=== PATIENT | male | born 1945 | race African-American/Black ===

== ENCOUNTER 2022-07-22 10:53 | Inpatient (IN) | payer MEDICAID, SELFPAY ==
[2022-07-22] VITALS (33 sets, daily range): BP systolic 117–169; BP diastolic 62–92; PULSE 84–99; RESP 18–33; TEMP 34.5–37; O2SAT 92–100
--- NOTE | 2022-07-22 11:17 | DI.RAD.S_ITS ---
PROCEDURE: XR CHEST 1V INDICATIONS: Shortness of breath TECHNIQUE: One view of the chest was acquired. COMPARISON: None. FINDINGS: Surgical changes and devices: None. Lungs and pleura: Lungs are clear. No pleural effusions or pneumothorax. Mediastinum: Mediastinal contours appear normal. Heart size is normal. Atherosclerotic vascular calcification noted in the aortic arch. Bones and chest wall: No suspicious bony lesions. Overlying soft tissues appear unremarkable. IMPRESSION: No acute cardiopulmonary findings Approved by: Ronald Langley M.D. on 07/22/2022 at 12:43
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
--- NOTE | 2022-07-22 12:30 | DI.RAD.S_ITS ---
PROCEDURE: XR FOOT LT 2V INDICATIONS: espitia bite big toe TECHNIQUE: 3 views of the foot were acquired. COMPARISON: None. FINDINGS: Bones: No fractures or dislocations. No suspicious bony lesions. Generalized decrease in osseous mineralization noted. Soft tissues: No tibiotalar joint effusion. Achilles tendon appears normal. Diffuse atherosclerotic vascular calcification noted. IMPRESSION: Osteopenia and small vessel atherosclerosis without fracture or foreign body Approved by: Ronald Langley M.D. on 07/22/2022 at 14:11
--- NOTE | 2022-07-22 12:30 | ED_ITS ---
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 (26-34) PG MCHC (30-36) % RDW (11.6-14.8) % Plt Count (150-400) X10^3/uL Neut % (Auto) Lymph % (Auto) [place] % (Auto) Eos % (Auto) Baso % (Auto) Lymph # (Auto) [place] # (Auto) Baso # (Auto) Total Counted Seg Neutrophils % (38-70) % Band Neutrophils % (3-7) % Lymphocytes % (Manual) (25-45) % Atypical Lymphs % ( - 0) % Monocytes % (Manual) (2-11) % Metamyelocytes % (-0) % Neutrophils # (Manual) (4684-1243) /uL Nucleated RBCs ( - 0) #/Diff Platelet Estimate RBC Morphology Hypochromasia Poikilocytosis Anisocytosis Microcytosis Target Cells [place] Cells Smear Path Review Percent Retic (0.9-2.6) % PT (10.1-12.7) SECONDS INR (0.9-1.3) Sodium 138 (137-145) mmol/L Potassium 5.7 H (3.4-5.1) mmol/L Chloride 105 (98-107) mmol/L Carbon Dioxide 13 L (22-32) mmol/L BUN 161 H* (9-20) mg/dL Creatinine 3.91 H (0.66-1.25) mg/dL Estimated GFR 15 L (>60) mL/min BUN/Creatinine Ratio 41.2 H (6-22) Glucose 112 H (80-110) mg/dL Lactate 5.6 H* (0.7-2.1) mmol/L Calcium 6.6 L (8.4-10.2) mg/dL Iron (49-181) ug/dL TIBC (261-462) ug/dL % Saturation (20-50) % Transferrin (206-381) mg/dL Total Bilirubin 0.8 (0.2-1.3) mg/dL AST 48 (17-59) IU/L ALT 26 (<50) IU/L Alkaline Phosphatase 203 H (38-126) U/L Ammonia (9-30) umol/L Lactate Dehydrogenase (120-246) U/L Total Creatine Kinase (55-170) U/L CK-MB (CK-2) (<2.37) ng/mL CK-MB (CK-2) Rel Index (1.5-5.0) % Troponin I (0.01-0.034) ng/mL NT-Pro-B Natriuret Pep (<450) pg/mL Total Protein 6.7 (6.3-8.2) g/dL Albumin 2.7 L (3.5-5.0) g/dL Globulin 4.0 (1.7-4.1) g/dL Albumin/Globulin Ratio 0.7 L (1.0-2.8) Procalcitonin (<0.5) ng/mL Urine Color Urine Appearance Urine pH (4.5-8.0) Ur Specific [place] (1.000-1.035) Urine Protein (Negative) Urine Glucose (UA) (Negative) g/dL Urine Ketones (NEGATIVE) Urine Occult Blood (Negative) Urine Nitrate (Negative) Urine Bilirubin (NEGATIVE) Urine Urobilinogen (0.2) E.U./dL Ur Leukocyte Esterase (NEGATIVE) Urine RBC (0-5/HPF) Urine WBC (0-5/HPF) Ur Squamous Epith Cells (0-5/HPF) Amorphous Sediment Urine Bacteria (None) Ur Culture Indicated? Nasal Screen MRSA (PCR) (Negative) Salicylates (<20) mg/dL U Opiates 300ng/mL cut (Negative) Ur Oxycodone Screen (Negative) Urine Methadone Screen (Negative) Acetaminophen (10-30) ug/mL Ur Barbiturates Screen (Negative) U Tricyclic Antidepress (Negative) Ur Phencyclidine Scrn (Negative) Ur Amphetamines Screen (Negative) U Methamphetamines Scrn (Negative) Ur MDMA Scrn (Ecstasy) (Negative) U Benzodiazepines Scrn (Negative) Urine Cocaine Screen (Negative) U Marijuana (THC) Screen (Negative) Ethyl Alcohol ( - 10) mg/dL SARS-CoV-2 (PCR) (Negative) Influenza A (RT-PCR) (NEGATIVE) Influenza B (RT-PCR) (NEGATIVE) RSV (PCR) (Negative) Blood Type A Positive Antibody Screen Negative Crossmatch See Detail 12/31/22 12/31/22 12/31/22 Range/Units 20:00 20:00 20:00 WBC (4.5-11.0) X10^3/uL RBC (4.5-5.9) X10^6/uL Hgb (13.5-17.5) g/dL Hct (41-53) % MCV (80-100) fL MCH (26-34) PG MCHC (30-36) % RDW (11.6-14.8) % Plt Count (150-400) X10^3/uL Neut % (Auto) Lymph % (Auto) [place] % (Auto) Eos % (Auto) Baso % (Auto) Lymph # (Auto) [place] # (Auto) Baso # (Auto) Total Counted Seg Neutrophils % (38-70) % Band Neutrophils % (3-7) % Lymphocytes % (Manual) (25-45) % Atypical Lymphs % ( - 0) % Monocytes % (Manual) (2-11) % Metamyelocytes % (-0) % Neutrophils # (Manual) (2205-5042) /uL Nucleated RBCs ( - 0) #/Diff Platelet Estimate RBC Morphology Hypochromasia Poikilocytosis Anisocytosis Microcytosis Target Cells [place] Cells Smear Path Review Percent Retic (0.9-2.6) % PT (10.1-12.7) SECONDS INR (0.9-1.3) Sodium (137-145) mmol/L Potassium (3.4-5.1) mmol/L Chloride (98-107) mmol/L Carbon Dioxide (22-32) mmol/L BUN (9-20) mg/dL Creatinine (0.66-1.25) mg/dL Estimated GFR (>60) mL/min BUN/Creatinine Ratio (6-22) Glucose (80-110) mg/dL Lactate (0.7-2.1) mmol/L Calcium (8.4-10.2) mg/dL Iron 25 L (49-181) ug/dL TIBC 274 (261-462) ug/dL % Saturation 9 L (20-50) % Transferrin 206 (206-381) mg/dL Total Bilirubin (0.2-1.3) mg/dL AST (17-59) IU/L ALT (<50) IU/L Alkaline Phosphatase (38-126) U/L Ammonia (9-30) umol/L Lactate Dehydrogenase 401 H (120-246) U/L Total Creatine Kinase (55-170) U/L CK-MB (CK-2) (<2.37) ng/mL CK-MB (CK-2) Rel Index (1.5-5.0) % Troponin I (0.01-0.034) ng/mL NT-Pro-B Natriuret Pep (<450) pg/mL Total Protein (6.3-8.2) g/dL Albumin (3.5-5.0) g/dL Globulin (1.7-4.1) g/dL Albumin/Globulin Ratio (1.0-2.8) Procalcitonin (<0.5) ng/mL Urine Color Urine Appearance Urine pH (4.5-8.0) Ur Specific [place] (1.000-1.035) Urine Protein (Negative) Urine Glucose (UA) (Negative) g/dL Urine Ketones (NEGATIVE) Urine Occult Blood (Negative) Urine Nitrate (Negative) Urine Bilirubin (NEGATIVE) Urine Urobilinogen (0.2) E.U./dL Ur Leukocyte Esterase (NEGATIVE) Urine RBC (0-5/HPF) Urine WBC (0-5/HPF) Ur Squamous Epith Cells (0-5/HPF) Amorphous Sediment Urine Bacteria (None) Ur Culture Indicated? Nasal Screen MRSA (PCR) (Negative) Salicylates < 1.0 (<20) mg/dL U Opiates 300ng/mL cut (Negative) Ur Oxycodone Screen (Negative) Urine Methadone Screen (Negative) Acetaminophen < 10 (10-30) ug/mL Ur Barbiturates Screen (Negative) U Tricyclic Antidepress (Negative) Ur Phencyclidine Scrn (Negative) Ur Amphetamines Screen (Negative) U Methamphetamines Scrn (Negative) Ur MDMA Scrn (Ecstasy) (Negative) U Benzodiazepines Scrn (Negative) Urine Cocaine Screen (Negative) U Marijuana (THC) Screen (Negative) Ethyl Alcohol < 10 ( - 10) mg/dL SARS-CoV-2 (PCR) (Negative) Influenza A (RT-PCR) (NEGATIVE) Influenza B (RT-PCR) (NEGATIVE) RSV (PCR) (Negative) Blood Type Antibody Screen Crossmatch 07/22/22 07/22/22 07/22/22 Range/Units 23:30 23:30 23:30 WBC (4.5-11.0) X10^3/uL RBC (4.5-5.9) X10^6/uL Hgb 8.8 L (13.5-17.5) g/dL Hct 28.2 L (41-53) % MCV (80-100) fL MCH (26-34) PG MCHC (30-36) % RDW (11.6-14.8) % Plt Count (150-400) X10^3/uL Neut % (Auto) Lymph % (Auto) [place] % (Auto) Eos % (Auto) Baso % (Auto) Lymph # (Auto) [place] # (Auto) Baso # (Auto) Total Counted Seg Neutrophils % (38-70) % Band Neutrophils % (3-7) % Lymphocytes % (Manual) (25-45) % Atypical Lymphs % ( - 0) % Monocytes % (Manual) (2-11) % Metamyelocytes % (-0) % Neutrophils # (Manual) (6975-3292) /uL Nucleated RBCs ( - 0) #/Diff Platelet Estimate RBC Morphology Hypochromasia Poikilocytosis Anisocytosis Microcytosis Target Cells [place] Cells Smear Path Review Cancelled Cancelled Percent Retic 2.1 (0.9-2.6) % PT (10.1-12.7) SECONDS INR (0.9-1.3) Sodium (137-145) mmol/L Potassium (3.4-5.1) mmol/L Chloride (98-107) mmol/L Carbon Dioxide (22-32) mmol/L BUN (9-20) mg/dL Creatinine (0.66-1.25) mg/dL Estimated GFR (>60) mL/min BUN/Creatinine Ratio (6-22) Glucose (80-110) mg/dL Lactate (0.7-2.1) mmol/L Calcium (8.4-10.2) mg/dL Iron (49-181) ug/dL TIBC (261-462) ug/dL % Saturation (20-50) % Transferrin (206-381) mg/dL Total Bilirubin (0.2-1.3) mg/dL AST (17-59) IU/L ALT (<50) IU/L Alkaline Phosphatase (38-126) U/L Ammonia (9-30) umol/L Lactate Dehydrogenase (120-246) U/L Total Creatine Kinase (55-170) U/L CK-MB (CK-2) (<2.37) ng/mL CK-MB (CK-2) Rel Index (1.5-5.0) % Troponin I (0.01-0.034) ng/mL NT-Pro-B Natriuret Pep (<450) pg/mL Total Protein (6.3-8.2) g/dL Albumin (3.5-5.0) g/dL Globulin (1.7-4.1) g/dL Albumin/Globulin Ratio (1.0-2.8) Procalcitonin (<0.5) ng/mL Urine Color Urine Appearance Urine pH (4.5-8.0) Ur Specific [place] (1.000-1.035) Urine Protein (Negative) Urine Glucose (UA) (Negative) g/dL Urine Ketones (NEGATIVE) Urine Occult Blood (Negative) Urine Nitrate (Negative) Urine Bilirubin (NEGATIVE) Urine Urobilinogen (0.2) E.U./dL Ur Leukocyte Esterase (NEGATIVE) Urine RBC (0-5/HPF) Urine WBC (0-5/HPF) Ur Squamous Epith Cells (0-5/HPF) Amorphous Sediment Urine Bacteria (None) Ur Culture Indicated? Nasal Screen MRSA (PCR) (Negative) Salicylates (<20) mg/dL U Opiates 300ng/mL cut (Negative) Ur Oxycodone Screen (Negative) Urine Methadone Screen (Negative) Acetaminophen (10-30) ug/mL Ur Barbiturates Screen (Negative) U Tricyclic Antidepress (Negative) Ur Phencyclidine Scrn (Negative) Ur Amphetamines Screen (Negative) U Methamphetamines Scrn (Negative) Ur MDMA Scrn (Ecstasy) (Negative) U Benzodiazepines Scrn (Negative) Urine Cocaine Screen (Negative) U Marijuana (THC) Screen (Negative) Ethyl Alcohol ( - 10) mg/dL SARS-CoV-2 (PCR) (Negative) Influenza A (RT-PCR) (NEGATIVE) Influenza B (RT-PCR) (NEGATIVE) RSV (PCR) (Negative) Blood Type Antibody Screen Crossmatch 07/22/22 07/22/22 07/22/22 Range/Units 23:30 23:54 23:56 WBC (4.5-11.0) X10^3/uL RBC (4.5-5.9) X10^6/uL Hgb (13.5-17.5) g/dL Hct (41-53) % MCV (80-100) fL MCH (26-34) PG MCHC (30-36) % RDW (11.6-14.8) % Plt Count (150-400) X10^3/uL Neut % (Auto) Lymph % (Auto) [place] % (Auto) Eos % (Auto) Baso % (Auto) Lymph # (Auto) [place] # (Auto) Baso # (Auto) Total Counted Seg Neutrophils % (38-70) % Band Neutrophils % (3-7) % Lymphocytes % (Manual) (25-45) % Atypical Lymphs % ( - 0) % Monocytes % (Manual) (2-11) % Metamyelocytes % (-0) % Neutrophils # (Manual) (5168-4191) /uL Nucleated RBCs ( - 0) #/Diff Platelet Estimate RBC Morphology Hypochromasia Poikilocytosis Anisocytosis Microcytosis Target Cells [place] Cells Smear Path Review Percent Retic (0.9-2.6) % PT (10.1-12.7) SECONDS INR (0.9-1.3) Sodium 138 (137-145) mmol/L Potassium 6.3 H* (3.4-5.1) mmol/L Chloride 107 (98-107) mmol/L Carbon Dioxide 11 L (22-32) mmol/L BUN 161 H* (9-20) mg/dL Creatinine 4.03 H (0.66-1.25) mg/dL Estimated GFR 15 L (>60) mL/min BUN/Creatinine Ratio 40.0 H (6-22) Glucose 117 H (80-110) mg/dL Lactate 2.4 H (0.7-2.1) mmol/L Calcium 6.4 L* (8.4-10.2) mg/dL Iron (49-181) ug/dL TIBC (261-462) ug/dL % Saturation (20-50) % Transferrin (206-381) mg/dL Total Bilirubin (0.2-1.3) mg/dL AST (17-59) IU/L ALT (<50) IU/L Alkaline Phosphatase (38-126) U/L Ammonia (9-30) umol/L Lactate Dehydrogenase (120-246) U/L Total Creatine Kinase (55-170) U/L CK-MB (CK-2) (<2.37) ng/mL CK-MB (CK-2) Rel Index (1.5-5.0) % Troponin I (0.01-0.034) ng/mL NT-Pro-B Natriuret Pep (<450) pg/mL Total Protein (6.3-8.2) g/dL Albumin (3.5-5.0) g/dL Globulin (1.7-4.1) g/dL Albumin/Globulin Ratio (1.0-2.8) Procalcitonin (<0.5) ng/mL Urine Color Urine Appearance Urine pH (4.5-8.0) Ur Specific [place] (1.000-1.035) Urine Protein (Negative) Urine Glucose (UA) (Negative) g/dL Urine Ketones (NEGATIVE) Urine Occult Blood (Negative) Urine Nitrate (Negative) Urine Bilirubin (NEGATIVE) Urine Urobilinogen (0.2) E.U./dL Ur Leukocyte Esterase (NEGATIVE) Urine RBC (0-5/HPF) Urine WBC (0-5/HPF) Ur Squamous Epith Cells (0-5/HPF) Amorphous Sediment Urine Bacteria (None) Ur Culture Indicated? Nasal Screen MRSA (PCR) Negative for mrsa (Negative) Salicylates (<20) mg/dL U Opiates 300ng/mL cut (Negative) Ur Oxycodone Screen (Negative) Urine Methadone Screen (Negative) Acetaminophen (10-30) ug/mL Ur Barbiturates Screen (Negative) U Tricyclic Antidepress (Negative) Ur Phencyclidine Scrn (Negative) Ur Amphetamines Screen (Negative) U Methamphetamines Scrn (Negative) Ur MDMA Scrn (Ecstasy) (Negative) U Benzodiazepines Scrn (Negative) Urine Cocaine Screen (Negative) U Marijuana (THC) Screen (Negative) Ethyl Alcohol ( - 10) mg/dL SARS-CoV-2 (PCR) (Negative) Influenza A (RT-PCR) (NEGATIVE) Influenza B (RT-PCR) (NEGATIVE) RSV (PCR) (Negative) Blood Type Antibody Screen Crossmatch 07/23/22 07/23/22 07/23/22 Range/Units 02:21 04:15 04:15 WBC 28.9 H D (4.5-11.0) X10^3/uL RBC 3.96 L (4.5-5.9) X10^6/uL Hgb 8.9 L (13.5-17.5) g/dL Hct 29.4 L (41-53) % MCV 74.4 L D (80-100) fL MCH 22.4 L (26-34) PG MCHC 30.2 (30-36) % RDW 22.9 H (11.6-14.8) % Plt Count 378 (150-400) X10^3/uL Neut % (Auto) Lymph % (Auto) [place] % (Auto) Eos % (Auto) Baso % (Auto) Lymph # (Auto) [place] # (Auto) Baso # (Auto) Total Counted Seg Neutrophils % (38-70) % Band Neutrophils % (3-7) % Lymphocytes % (Manual) (25-45) % Atypical Lymphs % ( - 0) % Monocytes % (Manual) (2-11) % Metamyelocytes % (-0) % Neutrophils # (Manual) (1762-0797) /uL Nucleated RBCs ( - 0) #/Diff Platelet Estimate RBC Morphology Hypochromasia Poikilocytosis Anisocytosis Microcytosis Target Cells [place] Cells Smear Path Review Percent Retic (0.9-2.6) % PT 19.1 H (10.1-12.7) SECONDS INR 1.7 H (0.9-1.3) Sodium (137-145) mmol/L Potassium (3.4-5.1) mmol/L Chloride (98-107) mmol/L Carbon Dioxide (22-32) mmol/L BUN (9-20) mg/dL Creatinine (0.66-1.25) mg/dL Estimated GFR (>60) mL/min BUN/Creatinine Ratio (6-22) Glucose (80-110) mg/dL Lactate 4.0 H (0.7-2.1) mmol/L Calcium (8.4-10.2) mg/dL Iron (49-181) ug/dL TIBC (261-462) ug/dL % Saturation (20-50) % Transferrin (206-381) mg/dL Total Bilirubin (0.2-1.3) mg/dL AST (17-59) IU/L ALT (<50) IU/L Alkaline Phosphatase (38-126) U/L Ammonia (9-30) umol/L Lactate Dehydrogenase (120-246) U/L Total Creatine Kinase (55-170) U/L CK-MB (CK-2) (<2.37) ng/mL CK-MB (CK-2) Rel Index (1.5-5.0) % Troponin I (0.01-0.034) ng/mL NT-Pro-B Natriuret Pep (<450) pg/mL Total Protein (6.3-8.2) g/dL Albumin (3.5-5.0) g/dL Globulin (1.7-4.1) g/dL Albumin/Globulin Ratio (1.0-2.8) Procalcitonin (<0.5) ng/mL Urine Color Urine Appearance Urine pH (4.5-8.0) Ur Specific [place] (1.000-1.035) Urine Protein (Negative) Urine Glucose (UA) (Negative) g/dL Urine Ketones (NEGATIVE) Urine Occult Blood (Negative) Urine Nitrate (Negative) Urine Bilirubin (NEGATIVE) Urine Urobilinogen (0.2) E.U./dL Ur Leukocyte Esterase (NEGATIVE) Urine RBC (0-5/HPF) Urine WBC (0-5/HPF) Ur Squamous Epith Cells (0-5/HPF) Amorphous Sediment Urine Bacteria (None) Ur Culture Indicated? Nasal Screen MRSA (PCR) (Negative) Salicylates (<20) mg/dL U Opiates 300ng/mL cut (Negative) Ur Oxycodone Screen (Negative) Urine Methadone Screen (Negative) Acetaminophen (10-30) ug/mL Ur Barbiturates Screen (Negative) U Tricyclic Antidepress (Negative) Ur Phencyclidine Scrn (Negative) Ur Amphetamines Screen (Negative) U Methamphetamines Scrn (Negative) Ur MDMA Scrn (Ecstasy) (Negative) U Benzodiazepines Scrn (Negative) Urine Cocaine Screen (Negative) U Marijuana (THC) Screen (Negative) Ethyl Alcohol ( - 10) mg/dL SARS-CoV-2 (PCR) (Negative) Influenza A (RT-PCR) (NEGATIVE) Influenza B (RT-PCR) (NEGATIVE) RSV (PCR) (Negative) Blood Type Antibody Screen Crossmatch 07/23/22 07/23/22 07/23/22 Range/Units 05:40 05:40 08:20 WBC (4.5-11.0) X10^3/uL RBC (4.5-5.9) X10^6/uL Hgb (13.5-17.5) g/dL Hct (41-53) % MCV (80-100) fL MCH (26-34) PG MCHC (30-36) % RDW (11.6-14.8) % Plt Count (150-400) X10^3/uL Neut % (Auto) Lymph % (Auto) [place] % (Auto) Eos % (Auto) Baso % (Auto) Lymph # (Auto) [place] # (Auto) Baso # (Auto) Total Counted Seg Neutrophils % (38-70) % Band Neutrophils % (3-7) % Lymphocytes % (Manual) (25-45) % Atypical Lymphs % ( - 0) % Monocytes % (Manual) (2-11) % Metamyelocytes % (-0) % Neutrophils # (Manual) (5908-5695) /uL Nucleated RBCs ( - 0) #/Diff Platelet Estimate RBC Morphology Hypochromasia Poikilocytosis Anisocytosis Microcytosis Target Cells [place] Cells Smear Path Review Percent Retic (0.9-2.6) % PT (10.1-12.7) SECONDS INR (0.9-1.3) Sodium 136 L 142 (137-145) mmol/L Potassium TNP 5.2 H (3.4-5.1) mmol/L Chloride 107 109 H (98-107) mmol/L Carbon Dioxide 11 L 12 L (22-32) mmol/L BUN 166 H* 164 H* (9-20) mg/dL Creatinine 3.81 H 4.46 H (0.66-1.25) mg/dL Estimated GFR 16 L 13 L (>60) mL/min BUN/Creatinine Ratio 43.6 H 36.8 H (6-22) Glucose 104 91 (80-110) mg/dL Lactate (0.7-2.1) mmol/L Calcium 6.0 L* 6.6 L (8.4-10.2) mg/dL Iron (49-181) ug/dL TIBC (261-462) ug/dL % Saturation (20-50) % Transferrin (206-381) mg/dL Total Bilirubin (0.2-1.3) mg/dL AST (17-59) IU/L ALT (<50) IU/L Alkaline Phosphatase (38-126) U/L Ammonia 107 H (9-30) umol/L Lactate Dehydrogenase (120-246) U/L Total Creatine Kinase (55-170) U/L CK-MB (CK-2) (<2.37) ng/mL CK-MB (CK-2) Rel Index (1.5-5.0) % Troponin I (0.01-0.034) ng/mL NT-Pro-B Natriuret Pep (<450) pg/mL Total Protein (6.3-8.2) g/dL Albumin (3.5-5.0) g/dL Globulin (1.7-4.1) g/dL Albumin/Globulin Ratio (1.0-2.8) Procalcitonin (<0.5) ng/mL Urine Color Urine Appearance Urine pH (4.5-8.0) Ur Specific [place] (1.000-1.035) Urine Protein (Negative) Urine Glucose (UA) (Negative) g/dL Urine Ketones (NEGATIVE) Urine Occult Blood (Negative) Urine Nitrate (Negative) Urine Bilirubin (NEGATIVE) Urine Urobilinogen (0.2) E.U./dL Ur Leukocyte Esterase (NEGATIVE) Urine RBC (0-5/HPF) Urine WBC (0-5/HPF) Ur Squamous Epith Cells (0-5/HPF) Amorphous Sediment Urine Bacteria (None) Ur Culture Indicated? Nasal Screen MRSA (PCR) (Negative) Salicylates (<20) mg/dL U Opiates 300ng/mL cut (Negative) Ur Oxycodone Screen (Negative) Urine Methadone Screen (Negative) Acetaminophen (10-30) ug/mL Ur Barbiturates Screen (Negative) U Tricyclic Antidepress (Negative) Ur Phencyclidine Scrn (Negative) Ur Amphetamines Screen (Negative) U Methamphetamines Scrn (Negative) Ur MDMA Scrn (Ecstasy) (Negative) U Benzodiazepines Scrn (Negative) Urine Cocaine Screen (Negative) U Marijuana (THC) Screen (Negative) Ethyl Alcohol ( - 10) mg/dL SARS-CoV-2 (PCR) (Negative) Influenza A (RT-PCR) (NEGATIVE) Influenza B (RT-PCR) (NEGATIVE) RSV (PCR) (Negative) Blood Type Antibody Screen Crossmatch 07/23/22 07/23/22 Range/Units 08:20 08:20 WBC 32.9 H* (4.5-11.0) X10^3/uL RBC 4.08 L (4.5-5.9) X10^6/uL Hgb 9.3 L (13.5-17.5) g/dL Hct 29.6 L (41-53) % MCV 72.7 L (80-100) fL MCH 22.7 L (26-34) PG MCHC 31.2 (30-36) % RDW 21.8 H (11.6-14.8) % Plt Count 416 H (150-400) X10^3/uL Neut % (Auto) Not Reportable Lymph % (Auto) Not Reportable [place] % (Auto) Not Reportable Eos % (Auto) Not Reportable Baso % (Auto) Not Reportable Lymph # (Auto) Not Reportable [place] # (Auto) Not Reportable Baso # (Auto) Not Reportable Total Counted 100 Seg Neutrophils % 50.0 (38-70) % Band Neutrophils % 39.0 H (3-7) % Lymphocytes % (Manual) 4.0 L (25-45) % Atypical Lymphs % 1.0 H ( - 0) % Monocytes % (Manual) 6.0 (2-11) % Metamyelocytes % (-0) % Neutrophils # (Manual) 49646 H (2890-0615) /uL Nucleated RBCs 3 H ( - 0) #/Diff Platelet Estimate RBC Morphology Not Reportable Hypochromasia 2+ H Poikilocytosis 1+ H Anisocytosis 2+ H Microcytosis 1+ H Target Cells [place] Cells Smear Path Review Percent Retic (0.9-2.6) % PT (10.1-12.7) SECONDS INR (0.9-1.3) Sodium (137-145) mmol/L Potassium (3.4-5.1) mmol/L Chloride (98-107) mmol/L Carbon Dioxide (22-32) mmol/L BUN (9-20) mg/dL Creatinine (0.66-1.25) mg/dL Estimated GFR (>60) mL/min BUN/Creatinine Ratio (6-22) Glucose (80-110) mg/dL Lactate 3.8 H (0.7-2.1) mmol/L Calcium (8.4-10.2) mg/dL Iron (49-181) ug/dL TIBC (261-462) ug/dL % Saturation (20-50) % Transferrin (206-381) mg/dL Total Bilirubin (0.2-1.3) mg/dL AST (17-59) IU/L ALT (<50) IU/L Alkaline Phosphatase (38-126) U/L Ammonia (9-30) umol/L Lactate Dehydrogenase (120-246) U/L Total Creatine Kinase (55-170) U/L CK-MB (CK-2) (<2.37) ng/mL CK-MB (CK-2) Rel Index (1.5-5.0) % Troponin I (0.01-0.034) ng/mL NT-Pro-B Natriuret Pep (<450) pg/mL Total Protein (6.3-8.2) g/dL Albumin (3.5-5.0) g/dL Globulin (1.7-4.1) g/dL Albumin/Globulin Ratio (1.0-2.8) Procalcitonin (<0.5) ng/mL Urine Color Urine Appearance Urine pH (4.5-8.0) Ur Specific [place] (1.000-1.035) Urine Protein (Negative) Urine Glucose (UA) (Negative) g/dL Urine Ketones (NEGATIVE) Urine Occult Blood (Negative) Urine Nitrate (Negative) Urine Bilirubin (NEGATIVE) Urine Urobilinogen (0.2) E.U./dL Ur Leukocyte Esterase (NEGATIVE) Urine RBC (0-5/HPF) Urine WBC (0-5/HPF) Ur Squamous Epith Cells (0-5/HPF) Amorphous Sediment Urine Bacteria (None) Ur Culture Indicated? Nasal Screen MRSA (PCR) (Negative) Salicylates (<20) mg/dL U Opiates 300ng/mL cut (Negative) Ur Oxycodone Screen (Negative) Urine Methadone Screen (Negative) Acetaminophen (10-30) ug/mL Ur Barbiturates Screen (Negative) U Tricyclic Antidepress (Negative) Ur Phencyclidine Scrn (Negative) Ur Amphetamines Screen (Negative) U Methamphetamines Scrn (Negative) Ur MDMA Scrn (Ecstasy) (Negative) U Benzodiazepines Scrn (Negative) Urine Cocaine Screen (Negative) U Marijuana (THC) Screen (Negative) Ethyl Alcohol ( - 10) mg/dL SARS-CoV-2 (PCR) (Negative) Influenza A (RT-PCR) (NEGATIVE) Influenza B (RT-PCR) (NEGATIVE) RSV (PCR) (Negative) Blood Type Antibody Screen Crossmatch Point of Care Testing Stool Occult Blood Positive Glucose POC 140 Imaging Data Chest x-ray: Radiologist's Impression: Signed Patient: Meghan Greenfield MR#: [id number] : 1945 Acct:[id number] Age/Sex: 76 / M Date of Service: 07/22/22 Loc: ED Accession Number: [id number] ?? Procedure: XR chest 1V Ordering Provider: Mis Adams D.O. PROCEDURE:? XR CHEST 1V ? INDICATIONS:? Shortness of breath ? TECHNIQUE:? One view of the chest was acquired.? ? COMPARISON:? None. ? FINDINGS:? ? Surgical changes and devices:? None.? ? Lungs and pleura:? Lungs are clear.? No pleural effusions or pneumothorax.? ? Mediastinum:? Mediastinal contours appear normal.? Heart size is normal.? Atherosclerotic vascular calcification noted in the aortic arch. ? Bones and chest wall:? No suspicious bony lesions.? Overlying soft tissues appear unremarkable.? ? IMPRESSION:? No acute cardiopulmonary findings ? ? ? Approved by: Ronald Langley M.D. on 07/22/2022 at 12:43? CX2: Radiologist's Impression: Signed Patient: Meghan Greenfield MR#: [id number] : 1945 Acct:[id number] Age/Sex: 76 / M Date of Service: 07/22/22 Loc: ED Accession Number: [id number] ?? Procedure: XR chest 1V Ordering Provider: Mis Adams D.O. PROCEDURE:? XR CHEST 1V ? INDICATIONS:? Repeat exam after catheterization attempt ? TECHNIQUE:? One view of the chest was acquired.? ? COMPARISON:? [facility], CR, XR CHEST 1V, 07/22/2022, 12:24. ? FINDINGS:? ? Surgical changes and devices:? None.? ? Lungs and pleura:? Lungs are clear.? No pleural effusions or pneumothorax.? ? Mediastinum:? Mediastinal contours appear normal.? Heart size is normal.? ? Bones and chest wall:? No suspicious bony lesions.? Overlying soft tissues mj ear unremarkable.? ? IMPRESSION:? No vascular access catheter identified.? No pneumothorax or other acute abnormality in the chest.? ? ? Dictated by: Aakash Coleman M.D. on 07/22/2022 at 14:33 ? ? Approved by: Aakash Coleman M.D. on 07/22/2022 at 14:34 ? CX3: Radiologist's Impression: Meghan Greenfield??76??M??1945 ? Allergy/Adv: No Known Drug Allergies Close Chest X-Ray (Signed) Langley,Ronald - 07/22/22 Chest/Abdomen/Pelvis CT (Signed) Langley,Ronald - 07/22/22 Chest X-Ray (Signed) Aakash Coleman - 07/22/22 Foot X-Ray (Signed) Langley,Ronald - 07/22/22 Foot X-Ray (Signed) Langley,Ronald - 07/22/22 Chest X-Ray (Signed) Langley,Ronald - 07/22/22 Launch?Image [address] [address] XRay Report Signed Patient: Meghan Greenfield MR#: [id number] : 1945 Acct:[id number] Age/Sex: 76 / M Date of Service: 07/22/22 Loc: ED Accession Number: [id number] ?? Procedure: XR chest 1V Ordering Provider: Mis Adams D.O. PROCEDURE:? XR CHEST 1V ? INDICATIONS:? picc placement verify ? TECHNIQUE:? One view of the chest was acquired.? ? COMPARISON:? [facility], CR, XR CHEST 1V, 07/22/2022, 13:52. ? FINDINGS:? ? Surgical changes and devices:? Right-sided PICC line tip in the distal SVC.? No pneumothorax ? Lungs and pleura:? Lungs are clear.? No pleural effusions or pneumothorax.? ? Mediastinum:? Mediastinal contours appear normal.? Heart size is normal.? ? Bones and chest wall:? No suspicious bony lesions.? Overlying soft tissues appear unremarkable.? ? IMPRESSION:? Right-sided PICC line tip in the distal SVC without pneumothorax ? ? ? Approved by: Ronald Langley M.D. on 07/22/2022 at 16:45? Extremity x-ray #1: Radiologist's Impression: [place] [id number] XRay Report Signed Patient: Meghan Greenfield MR#: [id number] : 1945 Acct:[id number] Age/Sex: 76 / M Date of Service: 07/22/22 Loc: ED Accession Number: [id number] ?? Procedure: XR foot LT 2V Ordering Provider: Mis Adams D.O. PROCEDURE:? XR FOOT LT 2V ? INDICATIONS:? espitia bite big toe ? TECHNIQUE:? 3 views of the foot were acquired.? ? COMPARISON:? None. ? FINDINGS:? ? Bones:? No fractures or dislocations.? No suspicious bony lesions.? Generalized decrease in osseous mineralization noted. ? Soft tissues:? No tibiotalar joint effusion.? Achilles tendon appears normal.? Diffuse atherosclerotic vascular calcification noted. ? ? IMPRESSION:? ? Osteopenia and small vessel atherosclerosis without fracture or foreign body ? ? ? Approved by: Ronald Langley M.D. on 07/22/2022 at 14:11? Extremity x-ray #2: Radiologist's Impression: XRay Report Signed Patient: Meghan Greenfield MR#: [id number] : 1945 Acct:[id number] Age/Sex: 76 / M Date of Service: 07/22/22 Loc: ED Accession Number: [id number] ?? Procedure: XR foot RT 2V Ordering Provider: Mis Adams D.O. PROCEDURE:? XR FOOT RT 2V ? INDICATIONS:? pain ? TECHNIQUE:? 3 views of the foot were acquired.? ? COMPARISON:? [facility], XR FOOT LT 2V, 07/22/2022, 13:04. ? FINDINGS:? ? Bones:? No fractures or dislocations.? No suspicious bony lesions.? Generalized decrease in osseous mineralization noted. ? Soft tissues:? No tibiotalar joint effusion.? Achilles tendon appears normal.? Diffuse atherosclerotic vascular calcification noted. ? ? IMPRESSION:? ? Osteopenia and small vessel atherosclerosis without fracture or foreign body ? ? ? Approved by: Ronald Langley M.D. on 07/22/2022 at 13:16? CT scan - abdomen/pelvis: Radiologist's Impression: [place] [id number] CT Scan Report Signed Patient: Meghan Greenfield MR#: [id number] : 1945 Acct:[id number] Age/Sex: 76 / M Date of Service: 07/22/22 Loc: ED Accession Number: [id number] ?? Procedure: CT chest abd pel wo con Ordering Provider: Mis Adams D.O. PROCEDURE:? CT CHEST ABD PEL WO CON ? INDICATIONS:? ? bladder fistula, STEVE ? TECHNIQUE:? After the administration of oral contrast, 5 mm thick sections acquired from the lung apices to the symphysis pubis.? 5 mm thick coronal and sagittal reformats acquired, with additional 7 mm coronal MIP reformats through the lungs.? For radiation dose reduction, the following was used:? automated exposure control, adjustment of mA and/or kV according to patient size.? ? COMPARISON:? None. ? FINDINGS: ? Image quality:? Lack of IV contrast limits assessment of solid and vascular structures, particularly for neoplasm.? Respiratory motion artifact in the abdomen and pelvis also degrades image quality ? Chest: ? Cardiovascular:? Heart size is normal.? No evidence of aortic aneurysm.? Right- sided PICC line tip in the SVC ? Lungs and pleural spaces:? The lung zarate are clear without nodule, infiltrate or interstitial prominence.? Pleural spaces show no effusion or pneumothorax.? Emphysematous changes noted in the pulmonary parenchyma without nodule ? Lymph nodes:? No mediastinal, hilar or axillary adenopathy. ? Mediastinum:? Unremarkable.? Moderate hiatal hernia.? Thyroid within normal limits.? Oral contrast in the esophagus noted. ? Chest Wall and Bones:? Unremarkable.? No acute fracture. ? Abdomen and Pelvis: ? Liver:? Normal in size and attenuation. No contour deformity present. Biliary system:? No calcified cholelithiasis or pericholecystic inflammation.? N o intra or extrahepatic bile duct dilatation. ? Pancreas:? Unremarkable without mass or inflammation evident. ? Spleen:? Normal in size and density. ? Adrenals:? Normal morphology and density. ? Reproductive system:? Unremarkable as visualized. ? Urinary system:? Bilateral low-density since present in both kidneys measuring up to 4 cm on the left.? No renal calculi gross hydronephrosis, given limitations.? Nguyen catheter in the bladder.? Suggestion of diffuse bladder wall thickening could be further evaluated with contrast study. ? Gastrointestinal system:? Diffuse colonic gaseous distension with moderate fecal debris in the right colon and rectum ? Appendix:? No findings to suggest acute appendicitis. ? Lymph nodes:? No mesenteric or retroperitoneal adenopathy. ? Peritoneal spaces: ? No free air. No free fluid.? ? Vasculature:? Aortic atherosclerotic vascular calcification noted without evidence of aneurysm.? And diffuse small vessel atherosclerotic vascular calcification ? Abdominal wall:? Abdominal wall intact without evidence of ventral or inguinal hernias. ? Musculoskeletal:? Normal bone mineralization.? Degenerative disc disease and arthropathy noted in lower lumbar spine.? Severe central stenosis at L3-4 and L4-5.? No acute fractures.? ? IMPRESSION: ? 1.? Nguyen catheter in the bladder.? Suggestion diffuse bladder wall thickening may reflect chronic bladder outlet obstruction.? Consider CT cystogram if there persists clinical concern for bladder fistula or perforation. ? 2. Gaseous distension of the colon with moderate fecal debris in the right and left colon as well as rectum.? Mucosal irregularity in the right colon may reflect focal colitis ? 3. Degenerative disc disease and arthropathy results in severe central stenosis L3-4 and L4-5 ? Approved by: Ronald Langley M.D. on 07/22/2022 at 17:29? CT ab/pelvis 2: Radiologist's Impression: CT Scan Report Signed Patient: Meghan Greenfield MR#: [id number] : 1945 Acct:[id number] Age/Sex: 76 / M Date of Service: 07/23/22 Loc: ED Accession Number: [id number] ?? Procedure: CT abdomen pelvis wo con Ordering Provider: Matt Bond D.O. PROCEDURE:? CT ABDOMEN PELVIS WO CON ? INDICATIONS:? Abdominal distention ? TECHNIQUE:? After the administration of oral contrast, 5 mm thick sections acquired from the diaphragms to the symphysis.? 5 mm coronal and sagittal reformats were performed.? For radiation dose reduction, the following was used:? automated exposure control, adjustment of mA and/or kV according to patient size.? ? COMPARISON:? [facility], CT, CT CHEST ABD PEL WO CON, 07/22/2022, 17:28. ? FINDINGS: ? Lower thorax: The lung bases are clear.? Heart size normal.? Moderate hiatal hernia noted. ? Liver:? Normal in size and attenuation. No contour deformity present. ? Biliary system:? No calcified cholelithiasis or pericholecystic inflammation.? No intra or extrahepatic bile duct dilatation. ? Pancreas:? Unremarkable without mass or inflammation evident. ? Spleen:? Normal in size and density. ? Adrenals:? Normal morphology and density. ? Reproductive system:? Unremarkable as visualized. ? Urinary system:? Bilateral renal cysts remain unchanged.? No renal calculi or hydronephrosis.? Nguyen catheter in the bladder.? There is smooth bladder wall thickening present. ? Gastrointestinal system:? There is been interval worsening of colonic distension, there is now mural pneumatosis particularly involving the left colon.? Oral contrast has not progressed and is:? Common remains in the proximal small bowel.? Atherosclerotic calcification in the abdominal aorta noted without evidence of aneurysm. ? Appendix:? No findings to suggest acute appendicitis. ? Peritoneal spaces:? No mesenteric or retroperitoneal adenopathy.? No free air.? No free fluid.? ? Vasculature:? The IVC, aorta and iliac vasculature are unremarkable. ? Abdominal wall:? Abdominal wall intact without evidence of ventral or inguinal hernias. ? Musculoskeletal:? Degenerative disc disease and arthropathy in the lower lumbar spine with severe central stenosis at L3-4 and L4-5.? No acute fractures. ? IMPRESSION: ? 1. Persistent gaseous distension of the colon now with left-sided colonic pneumatosis, raising the possibility of ischemic colitis. ? 2. Nguyen catheter in the bladder with smooth bladder wall thickening.? Differential would include cystitis versus underdistention. ? 3. Persistent chronic findings include moderate hiatal hernia, advanced degenerative disc disease. ? ? ? Approved by: Ronald Langley M.D. on 07/23/2022 at 7:03? CXR 4: Radiologist's Impression: atient: Jean Pierre,Xzalian MR#: [id number] : 1945 Acct:[id number] Age/Sex: 76 / M Date of Service: 07/23/22 Loc: ED Accession Number: [id number] ?? Procedure: XR chest 1V Ordering Provider: Mis Adams D.O. PROCEDURE:? XR CHEST 1V ? INDICATIONS:? sob ? TECHNIQUE:? One view of the chest was acquired.? ? COMPARISON:? [facility], CR, XR CHEST 1V, 07/22/2022, 17:08. ? FINDINGS:? ? Surgical changes and devices:? Right-sided PICC line tip in the mid SVC ? Lungs and pleura:? Lungs are clear.? No pleural effusions or pneumothorax.? ? Mediastinum:? Mediastinal contours appear normal.? Heart size is normal.? Atherosclerotic vascular calcification noted in the aortic arch.? Moderate hiatal hernia ? Bones and chest wall:? No suspicious bony lesions.? Overlying soft tissues appear unremarkable.? ? IMPRESSION:? ? No acute cardiopulmonary findings.? Moderate hiatal hernia.? PICC line in place. ? ? ? Approved by: Ronald Langley M.D. on 07/23/2022 at 7:38? ECG Data Interpretation: Lots of artifact sinus rhythm rate 87 MDM Narrative Medical decision making narrative: Patient presents with variety of symptoms. He is found have very brown cloudy urine and probable UTI sepsis. Lucent leukocytosis of 17 with significant lactic acid of 6.9 procalcitonin of 2.2. However BUN creatinine are very elevated BUN of 159 creatinine of 4.3 suggestive of acute kidney injury. No prior blood work from previous visit [facility] or here at this hospital. He is also found to be anemic with hemoglobin of 6 6 unclear what his baseline is patient does report that he does have a history of anemia. He is complaining of some shortness of breath BNP noted to be elevated at 2300 without elevation in troponin. Dr bond 07/22-07/23: Received turned over. Reviewed patient's history and physical exam. Reviewed labs. Dr. Horan with the hospital service has been consulted. Has provided input and also orders. Patient has received antibiotics. Performed my own independent exam. He is received 2 units of packed red blood cells. His H&H has improved. He does seem somewhat confused. He states that he just generally does not feel very well. His lactate improved and then worsened. His leukocytosis is worsening. Potassium is elevating. We have been attempting all evening to find a facility with ICU and dialysis capability however we have been unsuccessful. I attempted to contact the patient's friends who's numbers provided in the comment section however there was no answer. I attempted to contact the patient's son at the number provided in the note however he went directly to a voicemail in the voicemail box was full. His abdomen is distended but very soft.. He does report some abdominal tenderness but can not state exactly where he is having the discomfort. He is Hemoccult positive. Discussed case with Dr. Rodriguez with ICU at [facility] who accepts the patient for transfer. Waiting on bed assignment. Care turned over to Dr. Adams to continue to treatment until transfer. 07/23/2022 730am-received turnover from Dr. Bond if seen evaluated patient myself. Abdomen is quite distended. Awaiting for repeat CT this morning although upon exam and my review of both CTs a remains relatively the same. Complaining of pain. He received 2 units of blood H&H stable. Potassium is rising but lab is reporting hemolysis. BUN rising however creatinine is improving. He has been on normal saline. Patient complaining of abdominal pain seems more confused today than yesterday. Ammonia level elevated, but not safe to swallow unable to give rectal lactulose. Gen.: Alert but confused HEENT: Atraumatic no JVD face symmetric Lungs: Clear bilaterally no tachypnea Cardiac: Regular rate no murmurs Abdomen: Very distended tender : Nguyen catheter in place Extremities: Moving all extremities no bony deformities peripheral pulses intact Neurologic: Cranial nerves intact but confused alert and oriented times SKIN: Sloughing of skin of left toe not any worse than yesterday Repeat CT from this morning does show persistent gaseous distention of colon now with left-sided colonic pneumatosis raising possibility of ischemic colitis. Clinically this correlates with decreasing mental status rising lactate worsening labs. New IV was started so hopefully blood is not hemolysis time awaiting repeat labs. Potassium was elevated but question if it is true or not. He is not bradycardic or have widened QRS on the monitor. 0830 Dr. Gutierrez consulted in regards to new CT. States that patient probably does need to go to the CT but agrees with transfer. Awaiting to hear back from [facility] has been made aware the patient is probably going to the OR still awaiting to hear back from sewing inspector. [id number] Capo Floyd, sewing inspector [facility] updated patient's symptoms test results. Recommend that we talked the surgery team possible to transfer patient prior to surgery and go to the OR at [facility]. Need to push images 1015-surgery at [facility] consulted unable to see images but updated on symptoms and test results. Request the patient go to the OR prior to being transferred. They will hold bed patient can go to the OR and be transferred to their ICU for further management and care. Dr. Gutierrez updated agrees with this plan. Surprisingly patient is hemodynamically stable Dr. Soto, kindly accepts patient Nehemias Roque- friend: [phone], attempted to call friend multiple times did not answer attempted to call son at [phone] success but voicemail is full and not accepting any voicemail <Matt Bond, DO - Last Filed: 07/23/22 07:15> Lab Data Labs: Lab Results 07/22/22 07/22/22 07/22/22 Range/Units 12:00 13:00 13:00 WBC (4.5-11.0) X10^3/uL RBC (4.5-5.9) X10^6/uL Hgb (13.5-17.5) g/dL Hct (41-53) % MCV (80-100) fL MCH (26-34) PG MCHC (30-36) % RDW (11.6-14.8) % Plt Count (150-400) X10^3/uL Neut % (Auto) Lymph % (Auto) [place] % (Auto) Eos % (Auto) Baso % (Auto) Lymph # (Auto) [place] # (Auto) Baso # (Auto) Total Counted Seg Neutrophils % (38-70) % Band Neutrophils % (3-7) % Lymphocytes % (Manual) (25-45) % Atypical Lymphs % ( - 0) % Monocytes % (Manual) (2-11) % Metamyelocytes % (-0) % Neutrophils # (Manual) (0423-3236) /uL Nucleated RBCs ( - 0) #/Diff Platelet Estimate RBC Morphology Hypochromasia Poikilocytosis Anisocytosis Microcytosis Target Cells [place] Cells Smear Path Review Percent Retic (0.9-2.6) % PT (10.1-12.7) SECONDS INR (0.9-1.3) Sodium (137-145) mmol/L Potassium (3.4-5.1) mmol/L Chloride (98-107) mmol/L Carbon Dioxide (22-32) mmol/L BUN (9-20) mg/dL Creatinine (0.66-1.25) mg/dL Estimated GFR (>60) mL/min BUN/Creatinine Ratio (6-22) Glucose (80-110) mg/dL Lactate (0.7-2.1) mmol/L Calcium (8.4-10.2) mg/dL Iron (49-181) ug/dL TIBC (261-462) ug/dL % Saturation (20-50) % Transferrin (206-381) mg/dL Total Bilirubin (0.2-1.3) mg/dL AST (17-59) IU/L ALT (<50) IU/L Alkaline Phosphatase (38-126) U/L Ammonia (9-30) umol/L Lactate Dehydrogenase (120-246) U/L Total Creatine Kinase (55-170) U/L CK-MB (CK-2) (<2.37) ng/mL CK-MB (CK-2) Rel Index (1.5-5.0) % Troponin I (0.01-0.034) ng/mL NT-Pro-B Natriuret Pep (<450) pg/mL Total Protein (6.3-8.2) g/dL Albumin (3.5-5.0) g/dL Globulin (1.7-4.1) g/dL Albumin/Globulin Ratio (1.0-2.8) Procalcitonin (<0.5) ng/mL Urine Color Brown Urine Appearance Cloudy Urine pH 5.5 (4.5-8.0) Ur Specific [place] 1.020 (1.000-1.035) Urine Protein 2+ H (Negative) Urine Glucose (UA) Trace H (Negative) g/dL Urine Ketones Negative (NEGATIVE) Urine Occult Blood 3+ H (Negative) Urine Nitrate Negative (Negative) Urine Bilirubin Negative (NEGATIVE) Urine Urobilinogen 0.2 (0.2) E.U./dL Ur Leukocyte Esterase 2+ H (NEGATIVE) Urine RBC 5-10/hpf H (0-5/HPF) Urine WBC 5-10/hpf H (0-5/HPF) Ur Squamous Epith Cells 0-1 /hpf (0-5/HPF) Amorphous Sediment 2+ Urine Bacteria Many (>30) H (None) Ur Culture Indicated? Specimen cultured Nasal Screen MRSA (PCR) (Negative) Salicylates (<20) mg/dL U Opiates 300ng/mL cut Negative (Negative) Ur Oxycodone Screen Negative (Negative) Urine Methadone Screen Negative (Negative) Acetaminophen (10-30) ug/mL Ur Barbiturates Screen Negative (Negative) U Tricyclic Antidepress Negative (Negative) Ur Phencyclidine Scrn Negative (Negative) Ur Amphetamines Screen Negative (Negative) U Methamphetamines Scrn Negative (Negative) Ur MDMA Scrn (Ecstasy) Negative (Negative) U Benzodiazepines Scrn Negative (Negative) Urine Cocaine Screen Negative (Negative) U Marijuana (THC) Screen Positive H (Negative) Ethyl Alcohol ( - 10) mg/dL SARS-CoV-2 (PCR) Negative (Negative) Influenza A (RT-PCR) Flu a negative (NEGATIVE) Influenza B (RT-PCR) Flu b negative (NEGATIVE) RSV (PCR) Negative (Negative) Blood Type Antibody Screen Crossmatch 07/22/22 07/22/22 07/22/22 Range/Units 13:39 13:39 13:39 WBC 17.0 H (4.5-11.0) X10^3/uL RBC 3.10 L (4.5-5.9) X10^6/uL Hgb 6.6 L* (13.5-17.5) g/dL Hct 21.8 L (41-53) % MCV 70.5 L (80-100) fL MCH 21.4 L (26-34) PG MCHC 30.3 (30-36) % RDW 19.5 H (11.6-14.8) % Plt Count 56 L (150-400) X10^3/uL Neut % (Auto) Not Reportable Lymph % (Auto) Not Reportable [place] % (Auto) Not Reportable Eos % (Auto) Not Reportable Baso % (Auto) Not Reportable Lymph # (Auto) Not Reportable [place] # (Auto) Not Reportable Baso # (Auto) Not Reportable Total Counted 100 Seg Neutrophils % 81.0 H (38-70) % Band Neutrophils % 3.0 (3-7) % Lymphocytes % (Manual) 5.0 L (25-45) % Atypical Lymphs % ( - 0) % Monocytes % (Manual) 10.0 (2-11) % Metamyelocytes % 1.0 H (-0) % Neutrophils # (Manual) 91931 H (3052-7589) /uL Nucleated RBCs 3 H ( - 0) #/Diff Platelet Estimate Decr RBC Morphology See Hypochromasia 3+ H Poikilocytosis Anisocytosis 2+ H Microcytosis 2+ H Target Cells 2+ H Gianni Cells 2+ H Smear Path Review Percent Retic (0.9-2.6) % PT 16.6 H (10.1-12.7) SECONDS INR 1.4 H (0.9-1.3) Sodium 140 (137-145) mmol/L Potassium 5.2 H (3.4-5.1) mmol/L Chloride 104 (98-107) mmol/L Carbon Dioxide 7 L* (22-32) mmol/L BUN 159 H* (9-20) mg/dL Creatinine 4.35 H (0.66-1.25) mg/dL Estimated GFR 13 L (>60) mL/min BUN/Creatinine Ratio 36.6 H (6-22) Glucose 144 H (80-110) mg/dL Lactate (0.7-2.1) mmol/L Calcium 7.4 L (8.4-10.2) mg/dL Iron (49-181) ug/dL TIBC (261-462) ug/dL % Saturation (20-50) % Transferrin (206-381) mg/dL Total Bilirubin 1.0 (0.2-1.3) mg/dL AST 47 (17-59) IU/L ALT 30 (<50) IU/L Alkaline Phosphatase 208 H (38-126) U/L Ammonia (9-30) umol/L Lactate Dehydrogenase (120-246) U/L Total Creatine Kinase (55-170) U/L CK-MB (CK-2) (<2.37) ng/mL CK-MB (CK-2) Rel Index (1.5-5.0) % Troponin I < 0.012 (0.01-0.034) ng/mL NT-Pro-B Natriuret Pep 2300 H (<450) pg/mL Total Protein 7.8 (6.3-8.2) g/dL Albumin 3.3 L (3.5-5.0) g/dL Globulin 4.5 H (1.7-4.1) g/dL Albumin/Globulin Ratio 0.7 L (1.0-2.8) Procalcitonin (<0.5) ng/mL Urine Color Urine Appearance Urine pH (4.5-8.0) Ur Specific [place] (1.000-1.035) Urine Protein (Negative) Urine Glucose (UA) (Negative) g/dL Urine Ketones (NEGATIVE) Urine Occult Blood (Negative) Urine Nitrate (Negative) Urine Bilirubin (NEGATIVE) Urine Urobilinogen (0.2) E.U./dL Ur Leukocyte Esterase (NEGATIVE) Urine RBC (0-5/HPF) Urine WBC (0-5/HPF) Ur Squamous Epith Cells (0-5/HPF) Amorphous Sediment Urine Bacteria (None) Ur Culture Indicated? Nasal Screen MRSA (PCR) (Negative) Salicylates (<20) mg/dL U Opiates 300ng/mL cut (Negative) Ur Oxycodone Screen (Negative) Urine Methadone Screen (Negative) Acetaminophen (10-30) ug/mL Ur Barbiturates Screen (Negative) U Tricyclic Antidepress (Negative) Ur Phencyclidine Scrn (Negative) Ur Amphetamines Screen (Negative) U Methamphetamines Scrn (Negative) Ur MDMA Scrn (Ecstasy) (Negative) U Benzodiazepines Scrn (Negative) Urine Cocaine Screen (Negative) U Marijuana (THC) Screen (Negative) Ethyl Alcohol ( - 10) mg/dL SARS-CoV-2 (PCR) (Negative) Influenza A (RT-PCR) (NEGATIVE) Influenza B (RT-PCR) (NEGATIVE) RSV (PCR) (Negative) Blood Type Antibody Screen Crossmatch 07/22/22 07/22/22 07/22/22 Range/Units 13:39 13:39 13:39 WBC (4.5-11.0) X10^3/uL RBC (4.5-5.9) X10^6/uL Hgb (13.5-17.5) g/dL Hct (41-53) % MCV (80-100) fL MCH (26-34) PG MCHC (30-36) % RDW (11.6-14.8) % Plt Count (150-400) X10^3/uL Neut % (Auto) Lymph % (Auto) [place] % (Auto) Eos % (Auto) Baso % (Auto) Lymph # (Auto) [place] # (Auto) Baso # (Auto) Total Counted Seg Neutrophils % (38-70) % Band Neutrophils % (3-7) % Lymphocytes % (Manual) (25-45) % Atypical Lymphs % ( - 0) % Monocytes % (Manual) (2-11) % Metamyelocytes % (-0) % Neutrophils # (Manual) (8313-1231) /uL Nucleated RBCs ( - 0) #/Diff Platelet Estimate RBC Morphology Hypochromasia Poikilocytosis Anisocytosis Microcytosis Target Cells [place] Cells Smear Path Review Percent Retic (0.9-2.6) % PT (10.1-12.7) SECONDS INR (0.9-1.3) Sodium (137-145) mmol/L Potassium (3.4-5.1) mmol/L Chloride (98-107) mmol/L Carbon Dioxide (22-32) mmol/L BUN (9-20) mg/dL Creatinine (0.66-1.25) mg/dL Estimated GFR (>60) mL/min BUN/Creatinine Ratio (6-22) Glucose (80-110) mg/dL Lactate 6.9 H* (0.7-2.1) mmol/L Calcium (8.4-10.2) mg/dL Iron (49-181) ug/dL TIBC (261-462) ug/dL % Saturation (20-50) % Transferrin (206-381) mg/dL Total Bilirubin (0.2-1.3) mg/dL AST (17-59) IU/L ALT (<50) IU/L Alkaline Phosphatase (38-126) U/L Ammonia (9-30) umol/L Lactate Dehydrogenase (120-246) U/L Total Creatine Kinase 292 H (55-170) U/L CK-MB (CK-2) 10.00 H (<2.37) ng/mL CK-MB (CK-2) Rel Index 3.4 (1.5-5.0) % Troponin I < 0.012 (0.01-0.034) ng/mL NT-Pro-B Natriuret Pep (<450) pg/mL Total Protein (6.3-8.2) g/dL Albumin (3.5-5.0) g/dL Globulin (1.7-4.1) g/dL Albumin/Globulin Ratio (1.0-2.8) Procalcitonin 2.20 H (<0.5) ng/mL Urine Color Urine Appearance Urine pH (4.5-8.0) Ur Specific [place] (1.000-1.035) Urine Protein (Negative) Urine Glucose (UA) (Negative) g/dL Urine Ketones (NEGATIVE) Urine Occult Blood (Negative) Urine Nitrate (Negative) Urine Bilirubin (NEGATIVE) Urine Urobilinogen (0.2) E.U./dL Ur Leukocyte Esterase (NEGATIVE) Urine RBC (0-5/HPF) Urine WBC (0-5/HPF) Ur Squamous Epith Cells (0-5/HPF) Amorphous Sediment Urine Bacteria (None) Ur Culture Indicated? Nasal Screen MRSA (PCR) (Negative) Salicylates (<20) mg/dL U Opiates 300ng/mL cut (Negative) Ur Oxycodone Screen (Negative) Urine Methadone Screen (Negative) Acetaminophen (10-30) ug/mL Ur Barbiturates Screen (Negative) U Tricyclic Antidepress (Negative) Ur Phencyclidine Scrn (Negative) Ur Amphetamines Screen (Negative) U Methamphetamines Scrn (Negative) Ur MDMA Scrn (Ecstasy) (Negative) U Benzodiazepines Scrn (Negative) Urine Cocaine Screen (Negative) U Marijuana (THC) Screen (Negative) Ethyl Alcohol ( - 10) mg/dL SARS-CoV-2 (PCR) (Negative) Influenza A (RT-PCR) (NEGATIVE) Influenza B (RT-PCR) (NEGATIVE) RSV (PCR) (Negative) Blood Type Antibody Screen Crossmatch 07/22/22 07/22/22 07/22/22 Range/Units 15:30 15:51 20:00 WBC (4.5-11.0) X10^3/uL RBC (4.5-5.9) X10^6/uL Hgb (13.5-17.5) g/dL Hct (41-53) % MCV (80-100) fL MCH (26-34) PG MCHC (30-36) % RDW (11.6-14.8) % Plt Count (150-400) X10^3/uL Neut % (Auto) Lymph % (Auto) [place] % (Auto) Eos % (Auto) Baso % (Auto) Lymph # (Auto) [place] # (Auto) Baso # (Auto) Total Counted Seg Neutrophils % (38-70) % Band Neutrophils % (3-7) % Lymphocytes % (Manual) (25-45) % Atypical Lymphs % ( - 0) % Monocytes % (Manual) (2-11) % Metamyelocytes % (-0) % Neutrophils # (Manual) (3171-0036) /uL Nucleated RBCs ( - 0) #/Diff Platelet Estimate RBC Morphology Hypochromasia Poikilocytosis Anisocytosis Microcytosis Target Cells Gianni Cells Smear Path Review Percent Retic (0.9-2.6) % PT (10.1-12.7) SECONDS INR (0.9-1.3) Sodium 138 (137-145) mmol/L Potassium 5.7 H (3.4-5.1) mmol/L Chloride 105 (98-107) mmol/L Carbon Dioxide 13 L (22-32) mmol/L BUN 161 H* (9-20) mg/dL Creatinine 3.91 H (0.66-1.25) mg/dL Estimated GFR 15 L (>60) mL/min BUN/Creatinine Ratio 41.2 H (6-22) Glucose 112 H (80-110) mg/dL Lactate 5.6 H* (0.7-2.1) mmol/L Calcium 6.6 L (8.4-10.2) mg/dL Iron (49-181) ug/dL TIBC (261-462) ug/dL % Saturation (20-50) % Transferrin (206-381) mg/dL Total Bilirubin 0.8 (0.2-1.3) mg/dL AST 48 (17-59) IU/L ALT 26 (<50) IU/L Alkaline Phosphatase 203 H (38-126) U/L Ammonia (9-30) umol/L Lactate Dehydrogenase (120-246) U/L Total Creatine Kinase (55-170) U/L CK-MB (CK-2) (<2.37) ng/mL CK-MB (CK-2) Rel Index (1.5-5.0) % Troponin I (0.01-0.034) ng/mL NT-Pro-B Natriuret Pep (<450) pg/mL Total Protein 6.7 (6.3-8.2) g/dL Albumin 2.7 L (3.5-5.0) g/dL Globulin 4.0 (1.7-4.1) g/dL Albumin/Globulin Ratio 0.7 L (1.0-2.8) Procalcitonin (<0.5) ng/mL Urine Color Urine Appearance Urine pH (4.5-8.0) Ur Specific [place] (1.000-1.035) Urine Protein (Negative) Urine Glucose (UA) (Negative) g/dL Urine Ketones (NEGATIVE) Urine Occult Blood (Negative) Urine Nitrate (Negative) Urine Bilirubin (NEGATIVE) Urine Urobilinogen (0.2) E.U./dL Ur Leukocyte Esterase (NEGATIVE) Urine RBC (0-5/HPF) Urine WBC (0-5/HPF) Ur Squamous Epith Cells (0-5/HPF) Amorphous Sediment Urine Bacteria (None) Ur Culture Indicated? Nasal Screen MRSA (PCR) (Negative) Salicylates (<20) mg/dL U Opiates 300ng/mL cut (Negative) Ur Oxycodone Screen (Negative) Urine Methadone Screen (Negative) Acetaminophen (10-30) ug/mL Ur Barbiturates Screen (Negative) U Tricyclic Antidepress (Negative) Ur Phencyclidine Scrn (Negative) Ur Amphetamines Screen (Negative) U Methamphetamines Scrn (Negative) Ur MDMA Scrn (Ecstasy) (Negative) U Benzodiazepines Scrn (Negative) Urine Cocaine Screen (Negative) U Marijuana (THC) Screen (Negative) Ethyl Alcohol ( - 10) mg/dL SARS-CoV-2 (PCR) (Negative) Influenza A (RT-PCR) (NEGATIVE) Influenza B (RT-PCR) (NEGATIVE) RSV (PCR) (Negative) Blood Type A Positive Antibody Screen Negative Crossmatch See Detail 07/22/22 07/22/22 07/22/22 Range/Units 20:00 20:00 20:00 WBC (4.5-11.0) X10^3/uL RBC (4.5-5.9) X10^6/uL Hgb (13.5-17.5) g/dL Hct (41-53) % MCV (80-100) fL MCH (26-34) PG MCHC (30-36) % RDW (11.6-14.8) % Plt Count (150-400) X10^3/uL Neut % (Auto) Lymph % (Auto) [place] % (Auto) Eos % (Auto) Baso % (Auto) Lymph # (Auto) [place] # (Auto) Baso # (Auto) Total Counted Seg Neutrophils % (38-70) % Band Neutrophils % (3-7) % Lymphocytes % (Manual) (25-45) % Atypical Lymphs % ( - 0) % Monocytes % (Manual) (2-11) % Metamyelocytes % (-0) % Neutrophils # (Manual) (5616-8129) /uL Nucleated RBCs ( - 0) #/Diff Platelet Estimate RBC Morphology Hypochromasia Poikilocytosis Anisocytosis Microcytosis Target Cells [place] Cells Smear Path Review Percent Retic (0.9-2.6) % PT (10.1-12.7) SECONDS INR (0.9-1.3) Sodium (137-145) mmol/L Potassium (3.4-5.1) mmol/L Chloride (98-107) mmol/L Carbon Dioxide (22-32) mmol/L BUN (9-20) mg/dL Creatinine (0.66-1.25) mg/dL Estimated GFR (>60) mL/min BUN/Creatinine Ratio (6-22) Glucose (80-110) mg/dL Lactate (0.7-2.1) mmol/L Calcium (8.4-10.2) mg/dL Iron 25 L (49-181) ug/dL TIBC 274 (261-462) ug/dL % Saturation 9 L (20-50) % Transferrin 206 (206-381) mg/dL Total Bilirubin (0.2-1.3) mg/dL AST (17-59) IU/L ALT (<50) IU/L Alkaline Phosphatase (38-126) U/L Ammonia (9-30) umol/L Lactate Dehydrogenase 401 H (120-246) U/L Total Creatine Kinase (55-170) U/L CK-MB (CK-2) (<2.37) ng/mL CK-MB (CK-2) Rel Index (1.5-5.0) % Troponin I (0.01-0.034) ng/mL NT-Pro-B Natriuret Pep (<450) pg/mL Total Protein (6.3-8.2) g/dL Albumin (3.5-5.0) g/dL Globulin (1.7-4.1) g/dL Albumin/Globulin Ratio (1.0-2.8) Procalcitonin (<0.5) ng/mL Urine Color Urine Appearance Urine pH (4.5-8.0) Ur Specific [place] (1.000-1.035) Urine Protein (Negative) Urine Glucose (UA) (Negative) g/dL Urine Ketones (NEGATIVE) Urine Occult Blood (Negative) Urine Nitrate (Negative) Urine Bilirubin (NEGATIVE) Urine Urobilinogen (0.2) E.U./dL Ur Leukocyte Esterase (NEGATIVE) Urine RBC (0-5/HPF) Urine WBC (0-5/HPF) Ur Squamous Epith Cells (0-5/HPF) Amorphous Sediment Urine Bacteria (None) Ur Culture Indicated? Nasal Screen MRSA (PCR) (Negative) Salicylates < 1.0 (<20) mg/dL U Opiates 300ng/mL cut (Negative) Ur Oxycodone Screen (Negative) Urine Methadone Screen (Negative) Acetaminophen < 10 (10-30) ug/mL Ur Barbiturates Screen (Negative) U Tricyclic Antidepress (Negative) Ur Phencyclidine Scrn (Negative) Ur Amphetamines Screen (Negative) U Methamphetamines Scrn (Negative) Ur MDMA Scrn (Ecstasy) (Negative) U Benzodiazepines Scrn (Negative) Urine Cocaine Screen (Negative) U Marijuana (THC) Screen (Negative) Ethyl Alcohol < 10 ( - 10) mg/dL SARS-CoV-2 (PCR) (Negative) Influenza A (RT-PCR) (NEGATIVE) Influenza B (RT-PCR) (NEGATIVE) RSV (PCR) (Negative) Blood Type Antibody Screen Crossmatch 07/22/22 07/22/22 07/22/22 Range/Units 23:30 23:30 23:30 WBC (4.5-11.0) X10^3/uL RBC (4.5-5.9) X10^6/uL Hgb 8.8 L (13.5-17.5) g/dL Hct 28.2 L (41-53) % MCV (80-100) fL MCH (26-34) PG MCHC (30-36) % RDW (11.6-14.8) % Plt Count (150-400) X10^3/uL Neut % (Auto) Lymph % (Auto) [place] % (Auto) Eos % (Auto) Baso % (Auto) Lymph # (Auto) [place] # (Auto) Baso # (Auto) Total Counted Seg Neutrophils % (38-70) % Band Neutrophils % (3-7) % Lymphocytes % (Manual) (25-45) % Atypical Lymphs % ( - 0) % Monocytes % (Manual) (2-11) % Metamyelocytes % (-0) % Neutrophils # (Manual) (4578-6987) /uL Nucleated RBCs ( - 0) #/Diff Platelet Estimate RBC Morphology Hypochromasia Poikilocytosis Anisocytosis Microcytosis Target Cells [place] Cells Smear Path Review Cancelled Cancelled Percent Retic 2.1 (0.9-2.6) % PT (10.1-12.7) SECONDS INR (0.9-1.3) Sodium (137-145) mmol/L Potassium (3.4-5.1) mmol/L Chloride (98-107) mmol/L Carbon Dioxide (22-32) mmol/L BUN (9-20) mg/dL Creatinine (0.66-1.25) mg/dL Estimated GFR (>60) mL/min BUN/Creatinine Ratio (6-22) Glucose (80-110) mg/dL Lactate (0.7-2.1) mmol/L Calcium (8.4-10.2) mg/dL Iron (49-181) ug/dL TIBC (261-462) ug/dL % Saturation (20-50) % Transferrin (206-381) mg/dL Total Bilirubin (0.2-1.3) mg/dL AST (17-59) IU/L ALT (<50) IU/L Alkaline Phosphatase (38-126) U/L Ammonia (9-30) umol/L Lactate Dehydrogenase (120-246) U/L Total Creatine Kinase (55-170) U/L CK-MB (CK-2) (<2.37) ng/mL CK-MB (CK-2) Rel Index (1.5-5.0) % Troponin I (0.01-0.034) ng/mL NT-Pro-B Natriuret Pep (<450) pg/mL Total Protein (6.3-8.2) g/dL Albumin (3.5-5.0) g/dL Globulin (1.7-4.1) g/dL Albumin/Globulin Ratio (1.0-2.8) Procalcitonin (<0.5) ng/mL Urine Color Urine Appearance Urine pH (4.5-8.0) Ur Specific [place] (1.000-1.035) Urine Protein (Negative) Urine Glucose (UA) (Negative) g/dL Urine Ketones (NEGATIVE) Urine Occult Blood (Negative) Urine Nitrate (Negative) Urine Bilirubin (NEGATIVE) Urine Urobilinogen (0.2) E.U./dL Ur Leukocyte Esterase (NEGATIVE) Urine RBC (0-5/HPF) Urine WBC (0-5/HPF) Ur Squamous Epith Cells (0-5/HPF) Amorphous Sediment Urine Bacteria (None) Ur Culture Indicated? Nasal Screen MRSA (PCR) (Negative) Salicylates (<20) mg/dL U Opiates 300ng/mL cut (Negative) Ur Oxycodone Screen (Negative) Urine Methadone Screen (Negative) Acetaminophen (10-30) ug/mL Ur Barbiturates Screen (Negative) U Tricyclic Antidepress (Negative) Ur Phencyclidine Scrn (Negative) Ur Amphetamines Screen (Negative) U Methamphetamines Scrn (Negative) Ur MDMA Scrn (Ecstasy) (Negative) U Benzodiazepines Scrn (Negative) Urine Cocaine Screen (Negative) U Marijuana (THC) Screen (Negative) Ethyl Alcohol ( - 10) mg/dL SARS-CoV-2 (PCR) (Negative) Influenza A (RT-PCR) (NEGATIVE) Influenza B (RT-PCR) (NEGATIVE) RSV (PCR) (Negative) Blood Type Antibody Screen Crossmatch 07/22/22 07/22/22 07/22/22 Range/Units 23:30 23:54 23:56 WBC (4.5-11.0) X10^3/uL RBC (4.5-5.9) X10^6/uL Hgb (13.5-17.5) g/dL Hct (41-53) % MCV (80-100) fL MCH (26-34) PG MCHC (30-36) % RDW (11.6-14.8) % Plt Count (150-400) X10^3/uL Neut % (Auto) Lymph % (Auto) [place] % (Auto) Eos % (Auto) Baso % (Auto) Lymph # (Auto) [place] # (Auto) Baso # (Auto) Total Counted Seg Neutrophils % (38-70) % Band Neutrophils % (3-7) % Lymphocytes % (Manual) (25-45) % Atypical Lymphs % ( - 0) % Monocytes % (Manual) (2-11) % Metamyelocytes % (-0) % Neutrophils # (Manual) (0219-8315) /uL Nucleated RBCs ( - 0) #/Diff Platelet Estimate RBC Morphology Hypochromasia Poikilocytosis Anisocytosis Microcytosis Target Cells [place] Cells Smear Path Review Percent Retic (0.9-2.6) % PT (10.1-12.7) SECONDS INR (0.9-1.3) Sodium 138 (137-145) mmol/L Potassium 6.3 H* (3.4-5.1) mmol/L Chloride 107 (98-107) mmol/L Carbon Dioxide 11 L (22-32) mmol/L BUN 161 H* (9-20) mg/dL Creatinine 4.03 H (0.66-1.25) mg/dL Estimated GFR 15 L (>60) mL/min BUN/Creatinine Ratio 40.0 H (6-22) Glucose 117 H (80-110) mg/dL Lactate 2.4 H (0.7-2.1) mmol/L Calcium 6.4 L* (8.4-10.2) mg/dL Iron (49-181) ug/dL TIBC (261-462) ug/dL % Saturation (20-50) % Transferrin (206-381) mg/dL Total Bilirubin (0.2-1.3) mg/dL AST (17-59) IU/L ALT (<50) IU/L Alkaline Phosphatase (38-126) U/L Ammonia (9-30) umol/L Lactate Dehydrogenase (120-246) U/L Total Creatine Kinase (55-170) U/L CK-MB (CK-2) (<2.37) ng/mL CK-MB (CK-2) Rel Index (1.5-5.0) % Troponin I (0.01-0.034) ng/mL NT-Pro-B Natriuret Pep (<450) pg/mL Total Protein (6.3-8.2) g/dL Albumin (3.5-5.0) g/dL Globulin (1.7-4.1) g/dL Albumin/Globulin Ratio (1.0-2.8) Procalcitonin (<0.5) ng/mL Urine Color Urine Appearance Urine pH (4.5-8.0) Ur Specific [place] (1.000-1.035) Urine Protein (Negative) Urine Glucose (UA) (Negative) g/dL Urine Ketones (NEGATIVE) Urine Occult Blood (Negative) Urine Nitrate (Negative) Urine Bilirubin (NEGATIVE) Urine Urobilinogen (0.2) E.U./dL Ur Leukocyte Esterase (NEGATIVE) Urine RBC (0-5/HPF) Urine WBC (0-5/HPF) Ur Squamous Epith Cells (0-5/HPF) Amorphous Sediment Urine Bacteria (None) Ur Culture Indicated? Nasal Screen MRSA (PCR) Negative for mrsa (Negative) Salicylates (<20) mg/dL U Opiates 300ng/mL cut (Negative) Ur Oxycodone Screen (Negative) Urine Methadone Screen (Negative) Acetaminophen (10-30) ug/mL Ur Barbiturates Screen (Negative) U Tricyclic Antidepress (Negative) Ur Phencyclidine Scrn (Negative) Ur Amphetamines Screen (Negative) U Methamphetamines Scrn (Negative) Ur MDMA Scrn (Ecstasy) (Negative) U Benzodiazepines Scrn (Negative) Urine Cocaine Screen (Negative) U Marijuana (THC) Screen (Negative) Ethyl Alcohol ( - 10) mg/dL SARS-CoV-2 (PCR) (Negative) Influenza A (RT-PCR) (NEGATIVE) Influenza B (RT-PCR) (NEGATIVE) RSV (PCR) (Negative) Blood Type Antibody Screen Crossmatch 07/23/22 07/23/22 07/23/22 Range/Units 02:21 04:15 04:15 WBC 28.9 H D (4.5-11.0) X10^3/uL RBC 3.96 L (4.5-5.9) X10^6/uL Hgb 8.9 L (13.5-17.5) g/dL Hct 29.4 L (41-53) % MCV 74.4 L D (80-100) fL MCH 22.4 L (26-34) PG MCHC 30.2 (30-36) % RDW 22.9 H (11.6-14.8) % Plt Count 378 (150-400) X10^3/uL Neut % (Auto) Lymph % (Auto) [place] % (Auto) Eos % (Auto) Baso % (Auto) Lymph # (Auto) [place] # (Auto) Baso # (Auto) Total Counted Seg Neutrophils % (38-70) % Band Neutrophils % (3-7) % Lymphocytes % (Manual) (25-45) % Atypical Lymphs % ( - 0) % Monocytes % (Manual) (2-11) % Metamyelocytes % (-0) % Neutrophils # (Manual) (8159-2270) /uL Nucleated RBCs ( - 0) #/Diff Platelet Estimate RBC Morphology Hypochromasia Poikilocytosis Anisocytosis Microcytosis Target Cells [place] Cells Smear Path Review Percent Retic (0.9-2.6) % PT 19.1 H (10.1-12.7) SECONDS INR 1.7 H (0.9-1.3) Sodium (137-145) mmol/L Potassium (3.4-5.1) mmol/L Chloride (98-107) mmol/L Carbon Dioxide (22-32) mmol/L BUN (9-20) mg/dL Creatinine (0.66-1.25) mg/dL Estimated GFR (>60) mL/min BUN/Creatinine Ratio (6-22) Glucose (80-110) mg/dL Lactate 4.0 H (0.7-2.1) mmol/L Calcium (8.4-10.2) mg/dL Iron (49-181) ug/dL TIBC (261-462) ug/dL % Saturation (20-50) % Transferrin (206-381) mg/dL Total Bilirubin (0.2-1.3) mg/dL AST (17-59) IU/L ALT (<50) IU/L Alkaline Phosphatase (38-126) U/L Ammonia (9-30) umol/L Lactate Dehydrogenase (120-246) U/L Total Creatine Kinase (55-170) U/L CK-MB (CK-2) (<2.37) ng/mL CK-MB (CK-2) Rel Index (1.5-5.0) % Troponin I (0.01-0.034) ng/mL NT-Pro-B Natriuret Pep (<450) pg/mL Total Protein (6.3-8.2) g/dL Albumin (3.5-5.0) g/dL Globulin (1.7-4.1) g/dL Albumin/Globulin Ratio (1.0-2.8) Procalcitonin (<0.5) ng/mL Urine Color Urine Appearance Urine pH (4.5-8.0) Ur Specific [place] (1.000-1.035) Urine Protein (Negative) Urine Glucose (UA) (Negative) g/dL Urine Ketones (NEGATIVE) Urine Occult Blood (Negative) Urine Nitrate (Negative) Urine Bilirubin (NEGATIVE) Urine Urobilinogen (0.2) E.U./dL Ur Leukocyte Esterase (NEGATIVE) Urine RBC (0-5/HPF) Urine WBC (0-5/HPF) Ur Squamous Epith Cells (0-5/HPF) Amorphous Sediment Urine Bacteria (None) Ur Culture Indicated? Nasal Screen MRSA (PCR) (Negative) Salicylates (<20) mg/dL U Opiates 300ng/mL cut (Negative) Ur Oxycodone Screen (Negative) Urine Methadone Screen (Negative) Acetaminophen (10-30) ug/mL Ur Barbiturates Screen (Negative) U Tricyclic Antidepress (Negative) Ur Phencyclidine Scrn (Negative) Ur Amphetamines Screen (Negative) U Methamphetamines Scrn (Negative) Ur MDMA Scrn (Ecstasy) (Negative) U Benzodiazepines Scrn (Negative) Urine Cocaine Screen (Negative) U Marijuana (THC) Screen (Negative) Ethyl Alcohol ( - 10) mg/dL SARS-CoV-2 (PCR) (Negative) Influenza A (RT-PCR) (NEGATIVE) Influenza B (RT-PCR) (NEGATIVE) RSV (PCR) (Negative) Blood Type Antibody Screen Crossmatch 07/23/22 07/23/22 07/23/22 Range/Units 05:40 05:40 08:20 WBC (4.5-11.0) X10^3/uL RBC (4.5-5.9) X10^6/uL Hgb (13.5-17.5) g/dL Hct (41-53) % MCV (80-100) fL MCH (26-34) PG MCHC (30-36) % RDW (11.6-14.8) % Plt Count (150-400) X10^3/uL Neut % (Auto) Lymph % (Auto) [place] % (Auto) Eos % (Auto) Baso % (Auto) Lymph # (Auto) [place] # (Auto) Baso # (Auto) Total Counted Seg Neutrophils % (38-70) % Band Neutrophils % (3-7) % Lymphocytes % (Manual) (25-45) % Atypical Lymphs % ( - 0) % Monocytes % (Manual) (2-11) % Metamyelocytes % (-0) % Neutrophils # (Manual) (4377-0228) /uL Nucleated RBCs ( - 0) #/Diff Platelet Estimate RBC Morphology Hypochromasia Poikilocytosis Anisocytosis Microcytosis Target Cells [place] Cells Smear Path Review Percent Retic (0.9-2.6) % PT (10.1-12.7) SECONDS INR (0.9-1.3) Sodium 136 L 142 (137-145) mmol/L Potassium TNP 5.2 H (3.4-5.1) mmol/L Chloride 107 109 H (98-107) mmol/L Carbon Dioxide 11 L 12 L (22-32) mmol/L BUN 166 H* 164 H* (9-20) mg/dL Creatinine 3.81 H 4.46 H (0.66-1.25) mg/dL Estimated GFR 16 L 13 L (>60) mL/min BUN/Creatinine Ratio 43.6 H 36.8 H (6-22) Glucose 104 91 (80-110) mg/dL Lactate (0.7-2.1) mmol/L Calcium 6.0 L* 6.6 L (8.4-10.2) mg/dL Iron (49-181) ug/dL TIBC (261-462) ug/dL % Saturation (20-50) % Transferrin (206-381) mg/dL Total Bilirubin (0.2-1.3) mg/dL AST (17-59) IU/L ALT (<50) IU/L Alkaline Phosphatase (38-126) U/L Ammonia 107 H (9-30) umol/L Lactate Dehydrogenase (120-246) U/L Total Creatine Kinase (55-170) U/L CK-MB (CK-2) (<2.37) ng/mL CK-MB (CK-2) Rel Index (1.5-5.0) % Troponin I (0.01-0.034) ng/mL NT-Pro-B Natriuret Pep (<450) pg/mL Total Protein (6.3-8.2) g/dL Albumin (3.5-5.0) g/dL Globulin (1.7-4.1) g/dL Albumin/Globulin Ratio (1.0-2.8) Procalcitonin (<0.5) ng/mL Urine Color Urine Appearance Urine pH (4.5-8.0) Ur Specific [place] (1.000-1.035) Urine Protein (Negative) Urine Glucose (UA) (Negative) g/dL Urine Ketones (NEGATIVE) Urine Occult Blood (Negative) Urine Nitrate (Negative) Urine Bilirubin (NEGATIVE) Urine Urobilinogen (0.2) E.U./dL Ur Leukocyte Esterase (NEGATIVE) Urine RBC (0-5/HPF) Urine WBC (0-5/HPF) Ur Squamous Epith Cells (0-5/HPF) Amorphous Sediment Urine Bacteria (None) Ur Culture Indicated? Nasal Screen MRSA (PCR) (Negative) Salicylates (<20) mg/dL U Opiates 300ng/mL cut (Negative) Ur Oxycodone Screen (Negative) Urine Methadone Screen (Negative) Acetaminophen (10-30) ug/mL Ur Barbiturates Screen (Negative) U Tricyclic Antidepress (Negative) Ur Phencyclidine Scrn (Negative) Ur Amphetamines Screen (Negative) U Methamphetamines Scrn (Negative) Ur MDMA Scrn (Ecstasy) (Negative) U Benzodiazepines Scrn (Negative) Urine Cocaine Screen (Negative) U Marijuana (THC) Screen (Negative) Ethyl Alcohol ( - 10) mg/dL SARS-CoV-2 (PCR) (Negative) Influenza A (RT-PCR) (NEGATIVE) Influenza B (RT-PCR) (NEGATIVE) RSV (PCR) (Negative) Blood Type Antibody Screen Crossmatch 07/23/22 07/23/22 Range/Units 08:20 08:20 WBC 32.9 H* (4.5-11.0) X10^3/uL RBC 4.08 L (4.5-5.9) X10^6/uL Hgb 9.3 L (13.5-17.5) g/dL Hct 29.6 L (41-53) % MCV 72.7 L (80-100) fL MCH 22.7 L (26-34) PG MCHC 31.2 (30-36) % RDW 21.8 H (11.6-14.8) % Plt Count 416 H (150-400) X10^3/uL Neut % (Auto) Not Reportable Lymph % (Auto) Not Reportable [place] % (Auto) Not Reportable Eos % (Auto) Not Reportable Baso % (Auto) Not Reportable Lymph # (Auto) Not Reportable [place] # (Auto) Not Reportable Baso # (Auto) Not Reportable Total Counted 100 Seg Neutrophils % 50.0 (38-70) % Band Neutrophils % 39.0 H (3-7) % Lymphocytes % (Manual) 4.0 L (25-45) % Atypical Lymphs % 1.0 H ( - 0) % Monocytes % (Manual) 6.0 (2-11) % Metamyelocytes % (-0) % Neutrophils # (Manual) 21814 H (2003-0981) /uL Nucleated RBCs 3 H ( - 0) #/Diff Platelet Estimate RBC Morphology Not Reportable Hypochromasia 2+ H Poikilocytosis 1+ H Anisocytosis 2+ H Microcytosis 1+ H Target Cells [place] Cells Smear Path Review Percent Retic (0.9-2.6) % PT (10.1-12.7) SECONDS INR (0.9-1.3) Sodium (137-145) mmol/L Potassium (3.4-5.1) mmol/L Chloride (98-107) mmol/L Carbon Dioxide (22-32) mmol/L BUN (9-20) mg/dL Creatinine (0.66-1.25) mg/dL Estimated GFR (>60) mL/min BUN/Creatinine Ratio (6-22) Glucose (80-110) mg/dL Lactate 3.8 H (0.7-2.1) mmol/L Calcium (8.4-10.2) mg/dL Iron (49-181) ug/dL TIBC (261-462) ug/dL % Saturation (20-50) % Transferrin (206-381) mg/dL Total Bilirubin (0.2-1.3) mg/dL AST (17-59) IU/L ALT (<50) IU/L Alkaline Phosphatase (38-126) U/L Ammonia (9-30) umol/L Lactate Dehydrogenase (120-246) U/L Total Creatine Kinase (55-170) U/L CK-MB (CK-2) (<2.37) ng/mL CK-MB (CK-2) Rel Index (1.5-5.0) % Troponin I (0.01-0.034) ng/mL NT-Pro-B Natriuret Pep (<450) pg/mL Total Protein (6.3-8.2) g/dL Albumin (3.5-5.0) g/dL Globulin (1.7-4.1) g/dL Albumin/Globulin Ratio (1.0-2.8) Procalcitonin (<0.5) ng/mL Urine Color Urine Appearance Urine pH (4.5-8.0) Ur Specific [place] (1.000-1.035) Urine Protein (Negative) Urine Glucose (UA) (Negative) g/dL Urine Ketones (NEGATIVE) Urine Occult Blood (Negative) Urine Nitrate (Negative) Urine Bilirubin (NEGATIVE) Urine Urobilinogen (0.2) E.U./dL Ur Leukocyte Esterase (NEGATIVE) Urine RBC (0-5/HPF) Urine WBC (0-5/HPF) Ur Squamous Epith Cells (0-5/HPF) Amorphous Sediment Urine Bacteria (None) Ur Culture Indicated? Nasal Screen MRSA (PCR) (Negative) Salicylates (<20) mg/dL U Opiates 300ng/mL cut (Negative) Ur Oxycodone Screen (Negative) Urine Methadone Screen (Negative) Acetaminophen (10-30) ug/mL Ur Barbiturates Screen (Negative) U Tricyclic Antidepress (Negative) Ur Phencyclidine Scrn (Negative) Ur Amphetamines Screen (Negative) U Methamphetamines Scrn (Negative) Ur MDMA Scrn (Ecstasy) (Negative) U Benzodiazepines Scrn (Negative) Urine Cocaine Screen (Negative) U Marijuana (THC) Screen (Negative) Ethyl Alcohol ( - 10) mg/dL SARS-CoV-2 (PCR) (Negative) Influenza A (RT-PCR) (NEGATIVE) Influenza B (RT-PCR) (NEGATIVE) RSV (PCR) (Negative) Blood Type Antibody Screen Crossmatch Point of Care Testing Stool Occult Blood Positive Glucose POC 140 MDM Narrative Medical decision making narrative: Patient presents with variety of symptoms. He is found have very brown cloudy urine and probable UTI sepsis. Lucent leukocytosis of 17 with significant lactic acid of 6.9 procalcitonin of 2.2. However BUN creatinine are very elevated BUN of 159 creatinine of 4.3 suggestive of acute kidney injury. No pr ior blood work from previous visit [facility] or here at this hospital. He is also found to be anemic with hemoglobin of 6 6 unclear what his baseline is patient does report that he does have a history of anemia. He is complaining of some shortness of breath BNP noted to be elevated at 2300 without elevation in troponin. Dr bond 07/22-07/23: Received turned over. Reviewed patient's history and physical exam. Reviewed labs. Dr. Horan with the hospital service has been consulted. Has provided input and also orders. Patient has received antibiotics. Performed my own independent exam. He is received 2 units of packed red blood cells. His H&H has improved. He does seem somewhat confused. He states that he just generally does not feel very well. His lactate improved and then worsened. His leukocytosis is worsening. Potassium is elevating. We have been attempting all evening to find a facility with ICU and dialysis capability however we have been unsuccessful. I attempted to contact the patient's friends who's numbers provided in the comment section however there was no answer. I attempted to contact the patient's son at the number provided in the note however he went directly to a voicemail in the voicemail box was full. His abdomen is distended but very soft.. He does report some abdominal tenderness but can not state exactly where he is having the discomfort. He is Hemoccult positive. Discussed case with Dr. Rodriguez with ICU at [facility] who accepts the patient for transfer. Waiting on bed assignment. Care turned over to Dr. Adams to continue to treatment until transfer. Critical Care Time <Mis Adams, DO - Last Filed: 07/23/22 15:33> Critical Care Time Critical Care Time: Yes Total Critical Care Time: 250 Attestation: The high probability of a clinically significant, sudden or life threatening deterioration of the [cardiovascular] system(s) required my full and direct attention, intervention and personal management. The aggregate critical care time was 250 minutes. This time is in addition to time spent performing reported procedures but includes the following: [x] Data Review and interpretation [x] Patient assessment and monitoring of vital signs [x] Documentation [x] Medication orders and management Discharge Plan Departure Patient Disposition: [facility] Clinical Impression: Pneumatosis intestinalis of large intestine, Acute renal failure, Sepsis
[2022-07-22 13:09] LABS: Influenza A - CEPHEID Flu A NEGATIVE (NEGATIVE); Influenza B - CEPHEID Flu B NEGATIVE (NEGATIVE); Respiratory Syncytial Virus Negative (Negative)
[2022-07-22 13:10] LABS: COVID-19 CEPHEID 4-PLEX PCR Negative (Negative)
--- NOTE | 2022-07-22 13:10 | DI.RAD.S_ITS ---
PROCEDURE: XR FOOT RT 2V INDICATIONS: pain TECHNIQUE: 3 views of the foot were acquired. COMPARISON: [facility], CR, XR FOOT LT 2V, 07/22/2022, 13:04. FINDINGS: Bones: No fractures or dislocations. No suspicious bony lesions. Generalized decrease in osseous mineralization noted. Soft tissues: No tibiotalar joint effusion. Achilles tendon appears normal. Diffuse atherosclerotic vascular calcification noted. IMPRESSION: Osteopenia and small vessel atherosclerosis without fracture or foreign body Approved by: Ronald Langley M.D. on 07/22/2022 at 13:16
[2022-07-22 13:19] LABS: Appearance Urine UA CLOUDY; Bilirubin Urine UA NEGATIVE (NEGATIVE); Color Urine UA BROWN; Glucose Urine UA TRACE g/dL (Negative); Ketones Urine UA NEGATIVE (NEGATIVE); Leukocyte Esterase Urine UA 2+ (NEGATIVE); Nitrite Urine UA NEGATIVE (Negative); Occult Blood Urine UA 3+ (Negative); Protein Urine UA 2+ (Negative); Urobilinogen Urine UA 0.2 E.U./dL (0.2); pH Urine UA 5.5 (4.5-8.0)
[2022-07-22 13:40] LABS: RBC Urine 5-10/HPF (0-5/HPF)
[2022-07-22 13:41] LABS: Amorphous Sediment Urine 2+; Bacteria Urine Many (>30); Culture Indicated Urine Specimen Cultured; Squamous Epithelial Cell Urine 0-1 /HPF (0-5/HPF); WBC Urine 5-10/HPF (0-5/HPF)
--- NOTE | 2022-07-22 13:46 | DI.RAD.S_ITS ---
PROCEDURE: XR CHEST 1V INDICATIONS: Repeat exam after catheterization attempt TECHNIQUE: One view of the chest was acquired. COMPARISON: [facility], , XR CHEST 1V, 07/22/2022, 12:24. FINDINGS: Surgical changes and devices: None. Lungs and pleura: Lungs are clear. No pleural effusions or pneumothorax. Mediastinum: Mediastinal contours appear normal. Heart size is normal. Bones and chest wall: No suspicious bony lesions. Overlying soft tissues appear unremarkable. IMPRESSION: No vascular access catheter identified. No pneumothorax or other acute abnormality in the chest. Dictated by: Aakash Coleman M.D. on 07/22/2022 at 14:33 Approved by: Aakash Coleman M.D. on 07/22/2022 at 14:34
[2022-07-22 13:56] LABS: Hematocrit 21.8 % (41-53); Mean Corpuscular HGB Conc 30.3 % (30-36); Mean Corpuscular Hemoglobin 21.4 PG (26-34); Mean Corpuscular Volume 70.5 fL (80-100); Platelet Count 56 X10^3/uL (150-400); Red Cell Distribution Width 19.5 % (11.6-14.8)
[2022-07-22] MEDS: MORPHINE 4 MG/ML INJ IM (13:58)
[2022-07-22 14:02] LABS: INR 1.4 (0.9-1.3); Prothrombin Time 16.6 SECONDS (10.1-12.7)
--- NOTE | 2022-07-22 14:09 | PC.NURSE ---
Pt educated on plan of care, verbalizes understanding. Unable to get PIV despite more attempts. Dr. Adams attempted central line.
[2022-07-22 14:22] LABS: Creatine Kinase 292 U/L (55-170); Sodium 140 mmol/L (137-145)
[2022-07-22 14:23] LABS: Alanine Aminotransferase 30 IU/L (<50); Albumin 3.3 g/dL (3.5-5.0); Albumin Globulin Ratio 0.7 (1.0-2.8); Alkaline Phosphatase 208 U/L (38-126); Aspartate Aminotransferase 47 IU/L (17-59); Calcium 7.4 mg/dL (8.4-10.2); Chloride 104 mmol/L (98-107); Globulin 4.5 g/dL (1.7-4.1); Glucose 144 mg/dL (80-110); Potassium 5.2 mmol/L (3.4-5.1); Total Protein 7.8 g/dL (6.3-8.2)
[2022-07-22 14:25] LABS: Add Manual Diff / Slide Review YES; Hemoglobin 6.6 g/dL (13.5-17.5)
[2022-07-22 14:27] LABS: Anisocytosis 2+; Hypochromasia 3+; Microcytosis 2+; Neutrophils Absolute Manual 14280 /uL (3000-5900); Nucleated Red Blood Cells 3 #/Diff; Target Cells 2+; Total Cells Counted 100
[2022-07-22 14:28] LABS: Burr Cells 2+
[2022-07-22 14:29] LABS: Platelet Estimate Decr; RBC Morphology See
[2022-07-22 14:30] LABS: Estimated Glomerular Filt Rate 13 mL/min (>60); HEMOLYSIS 23 (0-50)
[2022-07-22 14:34] LABS: NT-proBNP (BNP-Adult 18+) 2300 pg/mL (<450); Troponin I < 0.012 ng/mL (0.01-0.034)
[2022-07-22 14:35] LABS: Troponin I < 0.012 ng/mL (0.01-0.034)
[2022-07-22 14:59] LABS: BUN Creatinine Ratio 36.6 (6-22); Blood Urea Nitrogen 159 mg/dL (9-20); Carbon Dioxide 7 mmol/L (22-32)
[2022-07-22 15:01] LABS: Lactate (Lactic Acid) 6.9 mmol/L (0.7-2.1)
[2022-07-22 15:36] LABS: CKMB % Relative Index 3.4 % (1.5-5.0)
[2022-07-22 15:51] LABS: Reflexed Lactate in 2 Hours Y
--- NOTE | 2022-07-22 15:55 | DI.CT.S_ITS ---
PROCEDURE: CT CHEST ABD PEL WO CON INDICATIONS: ? bladder fistula, STEVE TECHNIQUE: After the administration of oral contrast, 5 mm thick sections acquired from the lung apices to the symphysis pubis. 5 mm thick coronal and sagittal reformats acquired, with additional 7 mm coronal MIP reformats through the lungs. For radiation dose reduction, the following was used: automated exposure control, adjustment of mA and/or kV according to patient size. COMPARISON: None. FINDINGS: Image quality: Lack of IV contrast limits assessment of solid and vascular structures, particularly for neoplasm. Respiratory motion artifact in the abdomen and pelvis also degrades image quality Chest: Cardiovascular: Heart size is normal. No evidence of aortic aneurysm. Right-sided PICC line tip in the SVC Lungs and pleural spaces: The lung zarate are clear without nodule, infiltrate or interstitial prominence. Pleural spaces show no effusion or pneumothorax. Emphysematous changes noted in the pulmonary parenchyma without nodule Lymph nodes: No mediastinal, hilar or axillary adenopathy. Mediastinum: Unremarkable. Moderate hiatal hernia. Thyroid within normal limits. Oral contrast in the esophagus noted. Chest Wall and Bones: Unremarkable. No acute fracture. Abdomen and Pelvis: Liver: Normal in size and attenuation. No contour deformity present. Biliary system: No calcified cholelithiasis or pericholecystic inflammation. No intra or extrahepatic bile duct dilatation. Pancreas: Unremarkable without mass or inflammation evident. Spleen: Normal in size and density. Adrenals: Normal morphology and density. Reproductive system: Unremarkable as visualized. Urinary system: Bilateral low-density since present in both kidneys measuring up to 4 cm on the left. No renal calculi gross hydronephrosis, given limitations. Nguyen catheter in the bladder. Suggestion of diffuse bladder wall thickening could be further evaluated with contrast study. Gastrointestinal system: Diffuse colonic gaseous distension with moderate fecal debris in the right colon and rectum Appendix: No findings to suggest acute appendicitis. Lymph nodes: No mesenteric or retroperitoneal adenopathy. Peritoneal spaces: No free air. No free fluid. Vasculature: Aortic atherosclerotic vascular calcification noted without evidence of aneurysm. And diffuse small vessel atherosclerotic vascular calcification Abdominal wall: Abdominal wall intact without evidence of ventral or inguinal hernias. Musculoskeletal: Normal bone mineralization. Degenerative disc disease and arthropathy noted in lower lumbar spine. 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 No acute fractures. IMPRESSION: 1. Nguyen catheter in the bladder. Suggestion diffuse bladder wall thickening may reflect chronic bladder outlet obstruction. Consider CT cystogram if there persists clinical concern for bladder fistula or perforation. 2. Gaseous distension of the colon with moderate fecal debris in the right and left colon as well as rectum. Mucosal irregularity in the right colon may reflect focal colitis 3. Degenerative disc disease and arthropathy results in severe central stenosis L3-4 and L4-5 Approved by: Ronald Langley M.D. on 07/22/2022 at 17:29
[2022-07-22] MEDS: PIPERACILLIN/TAZO 4.5 GM in SODIUM CHLORIDE 0.9% 100 ML IV (16:02)
[2022-07-22] MEDS: LACTATED RINGERS 1,000 ML 1000 ML IV (16:03)
--- NOTE | 2022-07-22 16:39 | PC.NURSE ---
Pt provided oral contrast at approximately 1605, verbalizes instructions, tolerating PO intake.
--- NOTE | 2022-07-22 17:01 | DI.RAD.S_ITS ---
PROCEDURE: XR CHEST 1V INDICATIONS: picc placement verify TECHNIQUE: One view of the chest was acquired. COMPARISON: [facility], , XR CHEST 1V, 07/22/2022, 13:52. FINDINGS: Surgical changes and devices: Right-sided PICC line tip in the distal SVC. No pneumothorax Lungs and pleura: Lungs are clear. No pleural effusions or pneumothorax. Mediastinum: Mediastinal contours appear normal. Heart size is normal. Bones and chest wall: No suspicious bony lesions. Overlying soft tissues appear unremarkable. IMPRESSION: Right-sided PICC line tip in the distal SVC without pneumothorax Approved by: Ronald Langley M.D. on 07/22/2022 at 16:45
[2022-07-22 17:29] LABS: Lactate 2HR (Lactic Acid Rflx) 5.6 mmol/L (0.7-2.1)
[2022-07-22] MEDS: VANCOMYCIN 750 MG/150 ML PIGGYBACK 150 MG IV (17:49)
--- NOTE | 2022-07-22 18:16 | PC.NURSE ---
Blood Consent signed by pt prior to blood transfusion, pt verbalizes understanding of blood transfusion and denies questions.
--- NOTE | 2022-07-22 20:19 | PC.NURSE ---
Dr. Bond at bedside assessing pt, pt reports improvement in breathing, even and labored. Lung sounds clear.
[2022-07-22 20:24] LABS: Acetaminophen < 10 ug/mL (10-30); Ethanol (ETOH) < 10 mg/dL; Salicylate < 1.0 mg/dL (<20)
[2022-07-22 20:25] LABS: Alanine Aminotransferase 26 IU/L (<50); Albumin 2.7 g/dL (3.5-5.0); Albumin Globulin Ratio 0.7 (1.0-2.8); Alkaline Phosphatase 203 U/L (38-126); Aspartate Aminotransferase 48 IU/L (17-59); Bilirubin Total 0.8 mg/dL (0.2-1.3); Calcium 6.6 mg/dL (8.4-10.2); Carbon Dioxide 13 mmol/L (22-32); Chloride 105 mmol/L (98-107); Glucose 112 mg/dL (80-110); HEMOLYSIS 39 (0-50); Sodium 138 mmol/L (137-145); Total Protein 6.7 g/dL (6.3-8.2)
[2022-07-22 20:31] LABS: Estimated Glomerular Filt Rate 15 mL/min (>60)
[2022-07-22 20:38] LABS: BUN Creatinine Ratio 41.2 (6-22); Potassium 5.7 mmol/L (3.4-5.1)
[2022-07-22 20:39] LABS: Blood Urea Nitrogen 161 mg/dL (9-20)
[2022-07-22 20:44] LABS: UR Morphine/Opiate cutoff 300 Negative (Negative); Ur Creatinine Normal (Normal); Ur Specific Gravity Normal (Normal); Urine Amphetamines Negative (Negative); Urine Barbiturates Negative (Negative); Urine Benzodiazepines Negative (Negative); Urine Cocaine Negative (Negative); Urine MDMA Negative (Negative); Urine Methadone Negative (Negative); Urine Methamphetamines Negative (Negative); Urine Oxycodone Negative (Negative); Urine Phencyclidine Negative (Negative); Urine Tetrahydrocannabinol Positive (Negative); Urine Tricyclic Antidepressant Negative (Negative); Urine pH Normal (Normal)
[2022-07-22 21:05] LABS: Lactate Dehydrogenase 401 U/L (120-246)
[2022-07-22 21:14] LABS: HEMOLYSIS 40 (0-50); Iron 25 ug/dL (49-181)
--- NOTE | 2022-07-22 21:15 | PC.NURSE ---
Assisted by another RN to turn pt and further assessed bottom, nonblanching areas with flaking and peeling skin.
[2022-07-22 21:24] LABS: Percent Iron Saturation 9 % (20-50); Total Iron Binding Capacity 274 ug/dL (261-462); Transferrin 206 mg/dL (206-381)
--- NOTE | 2022-07-22 21:37 | P.CONS_ITS ---
History of Present Illness Consult details Chief complaint: resp issues, poss pneumonia Meds Home Medications and Allergies Allergies Allergy/AdvReac Type Severity Reaction Status Date / Time No Known Drug Allergies Allergy Verified 07/22/22 11:14 Exam Vital Signs (past 8 hours): - 07/22/22 18:03 07/22/22 17:39 07/22/22 17:40 Temperature 97.7 F 97.5 F L 97.5 F L Pulse Rate 94 H 94 H 93 H Respiratory Rate 18 28 H 25 H Blood Pressure 117/62 Pulse Oximetry 97 Oxygen Delivery Method 07/22/22 17:40 07/22/22 18:00 07/22/22 18:06 Temperature 97.5 F L 97.7 F Pulse Rate 95 H 96 H Respiratory Rate 27 H 25 H Blood Pressure 121/81 Pulse Oximetry 98 100 Oxygen Delivery Method Room Air 07/22/22 18:06 07/22/22 18:21 07/22/22 20:30 Temperature 97.7 F 98.1 F Pulse Rate 93 H 99 H Respiratory Rate 24 24 Blood Pressure 117/62 126/69 153/63 H Pulse Oximetry Oxygen Delivery Method 07/22/22 20:39 07/22/22 18:24 07/22/22 18:24 Temperature 98.2 F 97.7 F Pulse Rate 96 H 94 H Respiratory Rate 27 H 27 H Blood Pressure 129/63 126/69 Pulse Oximetry 100 Oxygen Delivery Method 07/22/22 18:30 07/22/22 18:31 07/22/22 18:31 Temperature 97.9 F 97.9 F Pulse Rate 93 H 95 H Respiratory Rate 27 H 27 H Blood Pressure 127/82 Pulse Oximetry 99 92 Oxygen Delivery Method 07/22/22 19:00 07/22/22 19:00 07/22/22 19:30 Temperature 98.1 F Pulse Rate 94 H Respiratory Rate 27 H Blood Pressure 120/78 132/69 Pulse Oximetry Oxygen Delivery Method 07/22/22 19:30 07/22/22 20:00 07/22/22 20:00 Temperature 97.9 F 97.9 F Pulse Rate 94 H 92 H Respiratory Rate 33 H 25 H Blood Pressure 146/70 H Pulse Oximetry 95 Oxygen Delivery Method 07/22/22 20:30 07/22/22 20:30 07/22/22 20:40 Temperature 98.1 F Pulse Rate 96 H Respiratory Rate 27 H Blood Pressure 153/63 H 129/63 Pulse Oximetry 100 Oxygen Delivery Method Room Air 07/22/22 20:40 07/22/22 20:55 07/22/22 22:30 Temperature 98.2 F 98.2 F 98.6 F Pulse Rate 94 H 97 H 97 H Respiratory Rate 28 H 24 20 Blood Pressure 123/85 128/76 Pulse Oximetry 100 Oxygen Delivery Method Oxygen Delivery Method Room Air Narrative Exam Narrative: GEN: ill appearing, disheveled HEENT: dry mucuos membranes, PERRL NECK: trachea midline, no JVD PULM: clear bilaterally, no wheezes, rhonchi, rales ABD: distended and swollen, tender to palpation : rhodes in place with dark urine EXT: warm and well perfused, toes in feet with sloughing skin NEURO: awake, oriented x1, no focal deficits noted Objective Labs Result Diagrams: 07/22/22 23:30 07/22/22 23:54 Labs: Laboratory Results - last 24 hr 07/22/22 07/22/22 07/22/22 12:00 13:00 13:00 WBC RBC Hgb Hct MCV MCH MCHC RDW Plt Count Neut % (Auto) Lymph % (Auto) [place] % (Auto) Eos % (Auto) Baso % (Auto) Lymph # (Auto) [place] # (Auto) Baso # (Auto) Total Counted Seg Neutrophils % Band Neutrophils % Lymphocytes % (Manual) Monocytes % (Manual) Metamyelocytes % Neutrophils # (Manual) Nucleated RBCs Platelet Estimate RBC Morphology Hypochromasia Anisocytosis Microcytosis Target Cells [place] Cells Percent Retic PT INR Sodium Potassium Chloride Carbon Dioxide BUN Creatinine Estimated GFR BUN/Creatinine Ratio Glucose Lactate Calcium Iron TIBC % Saturation Transferrin Total Bilirubin AST ALT Alkaline Phosphatase Lactate Dehydrogenase Total Creatine Kinase CK-MB (CK-2) CK-MB (CK-2) Rel Index Troponin I NT-Pro-B Natriuret Pep Total Protein Albumin Globulin Albumin/Globulin Ratio Procalcitonin Urine Color Brown Urine Appearance Cloudy Urine pH 5.5 Ur Specific [place] 1.020 Urine Protein 2+ H Urine Glucose (UA) Trace H Urine Ketones Negative Urine Occult Blood 3+ H Urine Nitrate Negative Urine Bilirubin Negative Urine Urobilinogen 0.2 Ur Leukocyte Esterase 2+ H Urine RBC 5-10/hpf H Urine WBC 5-10/hpf H Ur Squamous Epith Cells 0-1 /hpf Amorphous Sediment 2+ Urine Bacteria Many (>30) H Ur Culture Indicated? Specimen cultured Nasal Screen MRSA (PCR) Salicylates U Opiates 300ng/mL cut Negative Ur Oxycodone Screen Negative Urine Methadone Screen Negative Acetaminophen Ur Barbiturates Screen Negative U Tricyclic Antidepress Negative Ur Phencyclidine Scrn Negative Ur Amphetamines Screen Negative U Methamphetamines Scrn Negative Ur MDMA Scrn (Ecstasy) Negative U Benzodiazepines Scrn Negative Urine Cocaine Screen Negative U Marijuana (THC) Screen Positive H Ethyl Alcohol SARS-CoV-2 (PCR) Negative Influenza A (RT-PCR) Flu a negative Influenza B (RT-PCR) Flu b negative RSV (PCR) Negative Blood Type Antibody Screen Crossmatch 07/22/22 07/22/22 07/22/22 13:39 13:39 13:39 WBC 17.0 H RBC 3.10 L Hgb 6.6 L* Hct 21.8 L MCV 70.5 L MCH 21.4 L MCHC 30.3 RDW 19.5 H Plt Count 56 L Neut % (Auto) Not Reportable Lymph % (Auto) Not Reportable [place] % (Auto) Not Reportable Eos % (Auto) Not Reportable Baso % (Auto) Not Reportable Lymph # (Auto) Not Reportable [place] # (Auto) Not Reportable Baso # (Auto) Not Reportable Total Counted 100 Seg Neutrophils % 81.0 H Band Neutrophils % 3.0 Lymphocytes % (Manual) 5.0 L Monocytes % (Manual) 10.0 Metamyelocytes % 1.0 H Neutrophils # (Manual) 61993 H Nucleated RBCs 3 H Platelet Estimate Decr RBC Morphology See Hypochromasia 3+ H Anisocytosis 2+ H Microcytosis 2+ H Target Cells 2+ H [place] Cells 2+ H Percent Retic PT 16.6 H INR 1.4 H Sodium 140 Potassium 5.2 H Chloride 104 Carbon Dioxide 7 L* BUN 159 H* Creatinine 4.35 H Estimated GFR 13 L BUN/Creatinine Ratio 36.6 H Glucose 144 H Lactate Calcium 7.4 L Iron TIBC % Saturation Transferrin Total Bilirubin 1.0 AST 47 ALT 30 Alkaline Phosphatase 208 H Lactate Dehydrogenase Total Creatine Kinase CK-MB (CK-2) CK-MB (CK-2) Rel Index Troponin I < 0.012 NT-Pro-B Natriuret Pep 2300 H Total Protein 7.8 Albumin 3.3 L Globulin 4.5 H Albumin/Globulin Ratio 0.7 L Procalcitonin Urine Color Urine Appearance Urine pH Ur Specific [place] Urine Protein Urine Glucose (UA) Urine Ketones Urine Occult Blood Urine Nitrate Urine Bilirubin Urine Urobilinogen Ur Leukocyte Esterase Urine RBC Urine WBC Ur Squamous Epith Cells Amorphous Sediment Urine Bacteria Ur Culture Indicated? Nasal Screen MRSA (PCR) Salicylates U Opiates 300ng/mL cut Ur Oxycodone Screen Urine Methadone Screen Acetaminophen Ur Barbiturates Screen U Tricyclic Antidepress Ur Phencyclidine Scrn Ur Amphetamines Screen U Methamphetamines Scrn Ur MDMA Scrn (Ecstasy) U Benzodiazepines Scrn Urine Cocaine Screen U Marijuana (THC) Screen Ethyl Alcohol SARS-CoV-2 (PCR) Influenza A (RT-PCR) Influenza B (RT-PCR) RSV (PCR) Blood Type Antibody Screen Crossmatch 07/22/22 07/22/22 07/22/22 13:39 13:39 13:39 WBC RBC Hgb Hct MCV MCH MCHC RDW Plt Count Neut % (Auto) Lymph % (Auto) [place] % (Auto) Eos % (Auto) Baso % (Auto) Lymph # (Auto) [place] # (Auto) Baso # (Auto) Total Counted Seg Neutrophils % Band Neutrophils % Lymphocytes % (Manual) Monocytes % (Manual) Metamyelocytes % Neutrophils # (Manual) Nucleated RBCs Platelet Estimate RBC Morphology Hypochromasia Anisocytosis Microcytosis Target Cells [place] Cells Percent Retic PT INR Sodium Potassium Chloride Carbon Dioxide BUN Creatinine Estimated GFR BUN/Creatinine Ratio Glucose Lactate 6.9 H* Calcium Iron TIBC % Saturation Transferrin Total Bilirubin AST ALT Alkaline Phosphatase Lactate Dehydrogenase Total Creatine Kinase 292 H CK-MB (CK-2) 10.00 H CK-MB (CK-2) Rel Index 3.4 Troponin I < 0.012 NT-Pro-B Natriuret Pep Total Protein Albumin Globulin Albumin/Globulin Ratio Procalcitonin 2.20 H Urine Color Urine Appearance Urine pH Ur Specific [place] Urine Protein Urine Glucose (UA) Urine Ketones Urine Occult Blood Urine Nitrate Urine Bilirubin Urine Urobilinogen Ur Leukocyte Esterase Urine RBC Urine WBC Ur Squamous Epith Cells Amorphous Sediment Urine Bacteria Ur Culture Indicated? Nasal Screen MRSA (PCR) Salicylates U Opiates 300ng/mL cut Ur Oxycodone Screen Urine Methadone Screen Acetaminophen Ur Barbiturates Screen U Tricyclic Antidepress Ur Phencyclidine Scrn Ur Amphetamines Screen U Methamphetamines Scrn Ur MDMA Scrn (Ecstasy) U Benzodiazepines Scrn Urine Cocaine Screen U Marijuana (THC) Screen Ethyl Alcohol SARS-CoV-2 (PCR) Influenza A (RT-PCR) Influenza B (RT-PCR) RSV (PCR) Blood Type Antibody Screen Crossmatch 07/22/22 07/22/22 07/22/22 15:30 15:51 20:00 WBC RBC Hgb Hct MCV MCH MCHC RDW Plt Count Neut % (Auto) Lymph % (Auto) [place] % (Auto) Eos % (Auto) Baso % (Auto) Lymph # (Auto) [place] # (Auto) Baso # (Auto) Total Counted Seg Neutrophils % Band Neutrophils % Lymphocytes % (Manual) Monocytes % (Manual) Metamyelocytes % Neutrophils # (Manual) Nucleated RBCs Platelet Estimate RBC Morphology Hypochromasia Anisocytosis Microcytosis Target Cells [place] Cells Percent Retic PT INR Sodium 138 Potassium 5.7 H Chloride 105 Carbon Dioxide 13 L BUN 161 H* Creatinine 3.91 H Estimated GFR 15 L BUN/Creatinine Ratio 41.2 H Glucose 112 H Lactate 5.6 H* Calcium 6.6 L Iron TIBC % Saturation Transferrin Total Bilirubin 0.8 AST 48 ALT 26 Alkaline Phosphatase 203 H Lactate Dehydrogenase Total Creatine Kinase CK-MB (CK-2) CK-MB (CK-2) Rel Index Troponin I NT-Pro-B Natriuret Pep Total Protein 6.7 Albumin 2.7 L Globulin 4.0 Albumin/Globulin Ratio 0.7 L Procalcitonin Urine Color Urine Appearance Urine pH Ur Specific [place] Urine Protein Urine Glucose (UA) Urine Ketones Urine Occult Blood Urine Nitrate Urine Bilirubin Urine Urobilinogen Ur Leukocyte Esterase Urine RBC Urine WBC Ur Squamous Epith Cells Amorphous Sediment Urine Bacteria Ur Culture Indicated? Nasal Screen MRSA (PCR) Salicylates U Opiates 300ng/mL cut Ur Oxycodone Screen Urine Methadone Screen Acetaminophen Ur Barbiturates Screen U Tricyclic Antidepress Ur Phencyclidine Scrn Ur Amphetamines Screen U Methamphetamines Scrn Ur MDMA Scrn (Ecstasy) U Benzodiazepines Scrn Urine Cocaine Screen U Marijuana (THC) Screen Ethyl Alcohol SARS-CoV-2 (PCR) Influenza A (RT-PCR) Influenza B (RT-PCR) RSV (PCR) Blood Type A Positive Antibody Screen Negative Crossmatch See Detail 07/22/22 07/22/22 07/22/22 20:00 20:00 20:00 WBC RBC Hgb Hct MCV MCH MCHC RDW Plt Count Neut % (Auto) Lymph % (Auto) [place] % (Auto) Eos % (Auto) Baso % (Auto) Lymph # (Auto) [place] # (Auto) Baso # (Auto) Total Counted Seg Neutrophils % Band Neutrophils % Lymphocytes % (Manual) Monocytes % (Manual) Metamyelocytes % Neutrophils # (Manual) Nucleated RBCs Platelet Estimate RBC Morphology Hypochromasia Anisocytosis Microcytosis Target Cells [place] Cells Percent Retic PT INR Sodium Potassium Chloride Carbon Dioxide BUN Creatinine Estimated GFR BUN/Creatinine Ratio Glucose Lactate Calcium Iron 25 L TIBC 274 % Saturation 9 L Transferrin 206 Total Bilirubin AST ALT Alkaline Phosphatase Lactate Dehydrogenase 401 H Total Creatine Kinase CK-MB (CK-2) CK-MB (CK-2) Rel Index Troponin I NT-Pro-B Natriuret Pep Total Protein Albumin Globulin Albumin/Globulin Ratio Procalcitonin Urine Color Urine Appearance Urine pH Ur Specific [place] Urine Protein Urine Glucose (UA) Urine Ketones Urine Occult Blood Urine Nitrate Urine Bilirubin Urine Urobilinogen Ur Leukocyte Esterase Urine RBC Urine WBC Ur Squamous Epith Cells Amorphous Sediment Urine Bacteria Ur Culture Indicated? Nasal Screen MRSA (PCR) Salicylates < 1.0 U Opiates 300ng/mL cut Ur Oxycodone Screen Urine Methadone Screen Acetaminophen < 10 Ur Barbiturates Screen U Tricyclic Antidepress Ur Phencyclidine Scrn Ur Amphetamines Screen U Methamphetamines Scrn Ur MDMA Scrn (Ecstasy) U Benzodiazepines Scrn Urine Cocaine Screen U Marijuana (THC) Screen Ethyl Alcohol < 10 SARS-CoV-2 (PCR) Influenza A (RT-PCR) Influenza B (RT-PCR) RSV (PCR) Blood Type Antibody Screen Crossmatch 07/22/22 07/22/22 07/22/22 23:30 23:30 23:30 WBC RBC Hgb 8.8 L Hct 28.2 L MCV MCH MCHC RDW Plt Count Neut % (Auto) Lymph % (Auto) [place] % (Auto) Eos % (Auto) Baso % (Auto) Lymph # (Auto) [place] # (Auto) Baso # (Auto) Total Counted Seg Neutrophils % Band Neutrophils % Lymphocytes % (Manual) Monocytes % (Manual) Metamyelocytes % Neutrophils # (Manual) Nucleated RBCs Platelet Estimate RBC Morphology Hypochromasia Anisocytosis Microcytosis Target Cells [place] Cells Percent Retic 2.1 PT INR Sodium Potassium Chloride Carbon Dioxide BUN Creatinine Estimated GFR BUN/Creatinine Ratio Glucose Lactate 2.4 H Calcium Iron TIBC % Saturation Transferrin Total Bilirubin AST ALT Alkaline Phosphatase Lactate Dehydrogenase Total Creatine Kinase CK-MB (CK-2) CK-MB (CK-2) Rel Index Troponin I NT-Pro-B Natriuret Pep Total Protein Albumin Globulin Albumin/Globulin Ratio Procalcitonin Urine Color Urine Appearance Urine pH Ur Specific [place] Urine Protein Urine Glucose (UA) Urine Ketones Urine Occult Blood Urine Nitrate Urine Bilirubin Urine Urobilinogen Ur Leukocyte Esterase Urine RBC Urine WBC Ur Squamous Epith Cells Amorphous Sediment Urine Bacteria Ur Culture Indicated? Nasal Screen MRSA (PCR) Salicylates U Opiates 300ng/mL cut Ur Oxycodone Screen Urine Methadone Screen Acetaminophen Ur Barbiturates Screen U Tricyclic Antidepress Ur Phencyclidine Scrn Ur Amphetamines Screen U Methamphetamines Scrn Ur MDMA Scrn (Ecstasy) U Benzodiazepines Scrn Urine Cocaine Screen U Marijuana (THC) Screen Ethyl Alcohol SARS-CoV-2 (PCR) Influenza A (RT-PCR) Influenza B (RT-PCR) RSV (PCR) Blood Type Antibody Screen Crossmatch 07/22/22 07/22/22 23:54 23:56 WBC RBC Hgb Hct MCV MCH MCHC RDW Plt Count Neut % (Auto) Lymph % (Auto) [place] % (Auto) Eos % (Auto) Baso % (Auto) Lymph # (Auto) [place] # (Auto) Baso # (Auto) Total Counted Seg Neutrophils % Band Neutrophils % Lymphocytes % (Manual) Monocytes % (Manual) Metamyelocytes % Neutrophils # (Manual) Nucleated RBCs Platelet Estimate RBC Morphology Hypochromasia Anisocytosis Microcytosis Target Cells [place] Cells Percent Retic PT INR Sodium 138 Potassium 6.3 H* Chloride 107 Carbon Dioxide 11 L BUN 161 H* Creatinine 4.03 H Estimated GFR 15 L BUN/Creatinine Ratio 40.0 H Glucose 117 H Lactate Calcium 6.4 L* Iron TIBC % Saturation Transferrin Total Bilirubin AST ALT Alkaline Phosphatase Lactate Dehydrogenase Total Creatine Kinase CK-MB (CK-2) CK-MB (CK-2) Rel Index Troponin I NT-Pro-B Natriuret Pep Total Protein Albumin Globulin Albumin/Globulin Ratio Procalcitonin Urine Color Urine Appearance Urine pH Ur Specific [place] Urine Protein Urine Glucose (UA) Urine Ketones Urine Occult Blood Urine Nitrate Urine Bilirubin Urine Urobilinogen Ur Leukocyte Esterase Urine RBC Urine WBC Ur Squamous Epith Cells Amorphous Sediment Urine Bacteria Ur Culture Indicated? Nasal Screen MRSA (PCR) Negative for mrsa Salicylates U Opiates 300ng/mL cut Ur Oxycodone Screen Urine Methadone Screen Acetaminophen Ur Barbiturates Screen U Tricyclic Antidepress Ur Phencyclidine Scrn Ur Amphetamines Screen U Methamphetamines Scrn Ur MDMA Scrn (Ecstasy) U Benzodiazepines Scrn Urine Cocaine Screen U Marijuana (THC) Screen Ethyl Alcohol SARS-CoV-2 (PCR) Influenza A (RT-PCR) Influenza B (RT-PCR) RSV (PCR) Blood Type Antibody Screen Crossmatch [facility] Tobacco & Substance Use Smoking Status: Never smoker Assessment & Plan Assessment & Plan narrative: 1. Sepsis -presented with leukocytosis, elevated lactate, and elevated procalcitonin -did receive vanco/zosyn initially -UA positive concerning for UTI -urine cultures, blood cultures pending -CT chest negative for pneumonia -CT abdomen concerning for distended, gaseous colon and abnormal colon wall possibly from colitis or mass is unknown -MRSA swab negative, stop vanco -continue meropenem at renal dosing is 500mg q12hr -if diarrhea check stool cultures and c. diff -consider CT abdomen/pelvis with IV contrast 2. Acute renal failure -etiology unclear -rhodes in place, unlikely obstructive process -suspect secondary to ATN possibly from sepsis -significant uremia with BUN in 160s -fluid resuscitation has led to minimal improvement in renal function and patient appears oliguric -rhodes for urine output -rising potassium, concerning needs will need dialysis -ordered calcium, dextrose, insulin, recheck BMP after administration 3. Anemia and thrombocytopenia -low MCV -iron studies sent and low -patient cachectic, suspect possible GI process -guaiac stools if able -low retic percent possibly from iron deficiency or renal disease -mildly elevated LDH could be consistent with hemolyzing, however normal bilirubin makes this less likely -check haptoglobin -thrombocytopenia also concerning, ordered peripheral smear to consider other etiologies such as TMA disease (HUS, TTP) or DIC, though could be secondary to sepsis 5. Foot wounds -wound consult -per patient secondary to frostbite 6. Abdominal pain and distention -etiology unclear -CT scan shows gaseous distention, CT done without contrast -empiric broad antibiotics, right now with meropenem -consider repeat scan with IV contrast 7. Acute encephalopathy -suspect multifactorial secondary to sepsis uremia -denies Etoh abuse -treat medical issues as noted above CODE: Presumed full for now, but unknown Proxy: unknown, called multiple numbers in the EMR with no answer I have utilized all available resources to reconcile the patient's home medications Time Spent With Patient Critical Care time: I spent a total of [] minutes of critical care time on this patient's care today; this time is exclusive of procedural time.
[2022-07-22] MEDS: MEROPENEM 500 MG in SODIUM CHLORIDE 0.9% 100 ML 200 MG IV (22:01)
[2022-07-22] MEDS: LACTATED RINGERS 1,000 ML 200 ML IV (23:38)
[2022-07-22 23:51] LABS: Hemoglobin 8.8 g/dL (13.5-17.5)
[2022-07-22 23:53] LABS: Reticulocyte Count, Percent 2.1 % (0.9-2.6)
[2022-07-22 23:54] LABS: Hematocrit 28.2 % (41-53)
[2022-07-23] VITALS (29 sets, daily range): BP systolic 118–154; BP diastolic 50–99; PULSE 86–104; RESP 14–33; TEMP 36.5–37.2; O2SAT 93–100
--- NOTE | 2022-07-23 | PATH_ITS ---
[facility] Accession Number: [id number] . 01 Material submitted: . colon - LEFT COLON . 01 Diagnosis: Left Colon, Segmental Resection: Ischemic colitis with marked thinning of bowel wall, transmural inflammation, serositis, and pseudomembranes. Please see comment. Negative for granulomas, dysplasia, and malignancy. MRV 07/26/2022 1417 Local . 01 Comment: Braille Translator sections of blue inked colonic margin show marked inflammation and ischemia. Patchy areas of uninflamed colonic mucosa and some inflamed mucosa with pseudomembranes show an abnormal subepithelial collagen layer, which may be a reactive feature in the setting of ischemia or may represent collagenous colitis. Features of chronic colitis, diverticular disease or vasculitis are not identified. No obvious viral cytopathic effects or parasitic organisms are identified. Pseudomembrane formation is a non-specific finding. It is consistent with ischemia; however, it may be seen in other contexts, including infection. Correlation with clinical presentation and stool studies is recommended, if clinically indicated. . . 01 Electronically signed: . Sylvie Soria MD, Pathologist NPI- [id number] . 01 Gross description: . The specimen is received in formalin labeled with the patient's name, , and left colon, and consists of an unoriented, largely distended segment of colon measuring 44.5 cm in length and averaging 9.5 cm in diameter. The serosa is pink to sawyer and generally smooth with several areas of gunn to sawyer roughening consistent with exudate measuring up to 5.9 cm in greatest dimension. No perforations are grossly identified, and minimal mesenteric fat is attached extending up to 2.2 cm. One staple line is inked blue, the opposite staple line is inked black, and the mesenteric margin is inked green. Opening the specimen reveals the specimen to contain a significant amount of gas expanding the gross distention as well as a moderate amount of brown stool with an approximate type 6 on the Payette stool chart. The mucosa is mottled, sawyer to brown, slightly velvety, and has grossly denuded folds. Areas of the bowel wall are thin and translucent, ranging from less than 0.1 to 0.2 cm thick. No polyps, lesions or diverticula are identified. Palpation reveals no lymph node candidates. Braille Translator sections are submitted as follows: A1: Braille Translator blue margin en face. A2: Braille Translator black and green margins en face. A3: Areas of wall thinning and possible serosal exudate. A4: Braille Translator mucosa. ([id number]) /MRV 07/25/2022 1437 Local . 01 Pathologist provided ICD-10: K55.9 . 01 CPT . 297050 Specimen Comment: A courtesy copy of this report has been sent to [phone] Performed at: 01 [facility] [address] [place] [address], [place], [place] [id number] MD Lester Ann MD Phone: [phone]
[2022-07-23 00:15] LABS: Lactate (Lactic Acid) 2.4 mmol/L (0.7-2.1)
[2022-07-23 00:16] LABS: Carbon Dioxide 11 mmol/L (22-32); Chloride 107 mmol/L (98-107); Glucose 117 mg/dL (80-110); HEMOLYSIS 41 (0-50); Sodium 138 mmol/L (137-145)
[2022-07-23 00:27] LABS: Estimated Glomerular Filt Rate 15 mL/min (>60)
[2022-07-23 00:30] LABS: Potassium 6.3 mmol/L (3.4-5.1)
[2022-07-23 00:31] LABS: Blood Urea Nitrogen 161 mg/dL (9-20); Calcium 6.4 mg/dL (8.4-10.2)
[2022-07-23] MEDS: SODIUM CHLORIDE 0.9% 1,000 ML 150 ML IV ×4 (00:50→14:29)
[2022-07-23] MEDS: CALCIUM GLUCONATE 4.65 MEQ in SODIUM CHLORIDE 0.9% 50 ML 180 MEQ IV (00:51)
[2022-07-23] MEDS: DEXTROSE 50 % IN WATER 25 GM/50 ML SYRINGE IV (01:15)
[2022-07-23] MEDS: INSULIN REGULAR 100 UNIT/ML 3 ML VIAL 10 UNIT IV (01:15)
--- NOTE | 2022-07-23 02:02 | PC.NURSE ---
Addendum entered by Mary Suárez CNA 07/23/22 06:11: Update: [facility]: 0443- Yajaira- no beds right now. Possibly day shift? [facility]: 0446 Jo Ann- totally full. Just admitted their list ICU patient. [facility]: 0446- [facility]- Absolutely zero beds. [facility]: 0448 endless ringing. [facility]: 0224- Dale- no beds now but was going to speak to their ccu charge to look at total bed situation. [facility]- [id number] Arina- gave her the rundown on the patient. She spoke to Dr. Bond. At 0610 she called back and said to push images and facesheets to [facility] and [facility]. Faxed over face sheet and pushed images. 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 Here's who I called, when, and response. [facility]: 0044 Yajaira- No ICU or step down beds currently. Pt on waitlist. Faxed over a face sheet. [facility]: 0049- Jo Ann- no beds. Added to waitlist. Faxed over a face sheet. [place]: 0123- [facility]- 0 beds. Added to waitlist. Faxed over face sheet. [facility]: 0148 Kalina- No beds right now. Call back in the morning. Good luck! Keep trying! [facility]: 0151- Dale. Call back pad inspector to end of shift. Faxed over a face sheet. [facility]: 0200 left message.
[2022-07-23 02:03] LABS: Reflexed Lactate in 2 Hours Y
[2022-07-23 04:33] LABS: INR 1.7 (0.9-1.3); Prothrombin Time 19.1 SECONDS (10.1-12.7)
[2022-07-23 04:40] LABS: Hematocrit 29.4 % (41-53); Hemoglobin 8.9 g/dL (13.5-17.5); Mean Corpuscular HGB Conc 30.2 % (30-36); Mean Corpuscular Hemoglobin 22.4 PG (26-34); Mean Corpuscular Volume 74.4 fL (80-100); Platelet Count 378 X10^3/uL (150-400); Red Blood Cell Count 3.96 X10^6/uL (4.5-5.9); Red Cell Distribution Width 22.9 % (11.6-14.8); White Blood Cell Count 28.9 X10^3/uL (4.5-11.0)
--- NOTE | 2022-07-23 04:45 | DI.CT.S_ITS ---
PROCEDURE: CT ABDOMEN PELVIS WO CON INDICATIONS: Abdominal distention TECHNIQUE: After the administration of oral contrast, 5 mm thick sections acquired from the diaphragms to the symphysis. 5 mm coronal and sagittal reformats were performed. For radiation dose reduction, the following was used: automated exposure control, adjustment of mA and/or kV according to patient size. COMPARISON: [facility], CT, CT CHEST ABD PEL WO CON, 07/22/2022, 17:28. FINDINGS: Lower thorax: The lung bases are clear. Heart size normal. Moderate hiatal hernia noted. Liver: Normal in size and attenuation. No contour deformity present. Biliary system: No calcified cholelithiasis or pericholecystic inflammation. No intra or extrahepatic bile duct dilatation. Pancreas: Unremarkable without mass or inflammation evident. Spleen: Normal in size and density. Adrenals: Normal morphology and density. Reproductive system: Unremarkable as visualized. Urinary system: Bilateral renal cysts remain unchanged. No renal calculi or hydronephrosis. Nguyen catheter in the bladder. There is smooth bladder wall thickening present. Gastrointestinal system: There is been interval worsening of colonic distension, there is now mural pneumatosis particularly involving the left colon. Oral contrast has not progressed and is: Common remains in the proximal small bowel. Atherosclerotic calcification in the abdominal aorta noted without evidence of aneurysm. Appendix: No findings to suggest acute appendicitis. Peritoneal spaces: No mesenteric or retroperitoneal adenopathy. No free air. No free fluid. Vasculature: The IVC, aorta and iliac vasculature are unremarkable. Abdominal wall: Abdominal wall intact without evidence of ventral or inguinal hernias. 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 No acute fractures. IMPRESSION: 1. Persistent gaseous distension of the colon now with left-sided colonic pneumatosis, raising the possibility of ischemic colitis. 2. Nguyen catheter in the bladder with smooth bladder wall thickening. Differential would include cystitis versus underdistention. 3. Persistent chronic findings include moderate hiatal hernia, advanced degenerative disc disease. Approved by: Ronald Langley M.D. on 07/23/2022 at 7:03
[2022-07-23] MEDS: PIPERACILLIN/TAZO 3.375 GM in SODIUM CHLORIDE 0.9% 100 ML IV (05:12)
[2022-07-23 06:01] LABS: Ammonia (NH3) 107 umol/L (9-30)
[2022-07-23 06:02] LABS: Carbon Dioxide 11 mmol/L (22-32); Chloride 107 mmol/L (98-107); Glucose 104 mg/dL (80-110); Sodium 136 mmol/L (137-145)
[2022-07-23] MEDS: MORPHINE 4 MG/ML INJ IV (06:08)
[2022-07-23 06:09] LABS: HEMOLYSIS 186 (0-50)
[2022-07-23 06:10] LABS: BUN Creatinine Ratio 43.6 (6-22); Estimated Glomerular Filt Rate 16 mL/min (>60)
[2022-07-23 06:14] LABS: Blood Urea Nitrogen 166 mg/dL (9-20)
--- NOTE | 2022-07-23 07:03 | DI.RAD.S_ITS ---
PROCEDURE: XR CHEST 1V INDICATIONS: sob TECHNIQUE: One view of the chest was acquired. COMPARISON: [facility], CR, XR CHEST 1V, 07/22/2022, 17:08. FINDINGS: Surgical changes and devices: Right-sided PICC line tip in the mid SVC Lungs and pleura: Lungs are clear. No pleural effusions or pneumothorax. Mediastinum: Mediastinal contours appear normal. Heart size is normal. Atherosclerotic vascular calcification noted in the aortic arch. Moderate hiatal hernia Bones and chest wall: No suspicious bony lesions. Overlying soft tissues appear unremarkable. IMPRESSION: No acute cardiopulmonary findings. Moderate hiatal hernia. PICC line in place. Approved by: Ronald Langley M.D. on 07/23/2022 at 7:38
[2022-07-23] MEDS: MORPHINE 2 MG/ML INJ IV (08:11)
[2022-07-23] MEDS: metroNIDAZOLE 500 MG/100 ML PIGGYBACK 100 MG IV (08:14)
--- NOTE | 2022-07-23 08:15 | PM.PN.1 ---
Subjective Subjective Date Patient Seen: 07/23/22 Time Patient Seen: 10:32 Interval history: Patient is somnolent, disoriented and unable to give any meaningful info. When asked where he lives he says [place]. Colored contacts still present in his eyes were removed with some saline. Exam Vital Signs (past 8 hours): - 07/23/22 00:30 07/23/22 00:30 07/23/22 01:00 Temperature 99.0 F Pulse Rate 100 H Respiratory Rate 29 H Blood Pressure 144/77 H 144/81 H Pulse Oximetry 100 Oxygen Delivery Method 07/23/22 01:00 07/23/22 01:30 07/23/22 01:30 Temperature 99.0 F 98.8 F Pulse Rate 101 H 102 H Respiratory Rate 29 H 32 H Blood Pressure 140/96 H Pulse Oximetry 98 100 Oxygen Delivery Method 07/23/22 02:00 07/23/22 02:00 07/23/22 02:30 Temperature 98.8 F Pulse Rate 104 H Respiratory Rate 30 H Blood Pressure 154/76 H 139/95 H Pulse Oximetry 100 Oxygen Delivery Method 07/23/22 02:30 07/23/22 03:00 07/23/22 03:00 Temperature 98.8 F 98.6 F Pulse Rate 99 H 101 H Respiratory Rate 24 30 H Blood Pressure 130/86 Pulse Oximetry 99 100 Oxygen Delivery Method 07/23/22 03:30 07/23/22 03:30 07/23/22 04:00 Temperature 98.4 F Pulse Rate 98 H Respiratory Rate 28 H Blood Pressure 140/99 H 130/81 Pulse Oximetry 100 Oxygen Delivery Method 07/23/22 04:00 07/23/22 04:30 07/23/22 04:30 Temperature 98.4 F 98.4 F Pulse Rate 97 H 93 H Respiratory Rate 26 H 33 H Blood Pressure 135/85 Pulse Oximetry 99 100 Oxygen Delivery Method 07/23/22 05:04 07/23/22 05:30 07/23/22 06:06 Temperature 98.6 F 98.8 F Pulse Rate 96 H 97 H 86 Respiratory Rate 32 H 31 H 29 H Blood Pressure Pulse Oximetry 93 Oxygen Delivery Method 07/23/22 06:30 07/23/22 06:30 07/23/22 07:00 Temperature 98.8 F Pulse Rate 100 H Respiratory Rate 25 H Blood Pressure 135/95 H 129/83 Pulse Oximetry 98 Oxygen Delivery Method Room Air 07/23/22 07:00 Temperature 98.8 F Pulse Rate 101 H Respiratory Rate 26 H Blood Pressure Pulse Oximetry Oxygen Delivery Method Oxygen Delivery Method Room Air Narrative Exam Narrative: GEN: ill appearing, disheveled HEENT: dry mucuos membranes, PERRL NECK: trachea midline, no JVD PULM: clear bilaterally, no wheezes, rhonchi, rales ABD: distended and swollen, tender to palpation : rhodes in place with dark urine EXT: warm and well perfused, toes in feet with sloughing skin NEURO: somnolent, oriented x1, no focal deficits noted Objective Labs Result Diagrams: 07/23/22 08:20 07/23/22 08:20 Labs: Laboratory Results - last 24 hr 07/22/22 07/22/22 07/22/22 12:00 13:00 13:00 WBC RBC Hgb Hct MCV MCH MCHC RDW Plt Count Neut % (Auto) Lymph % (Auto) [place] % (Auto) Eos % (Auto) Baso % (Auto) Lymph # (Auto) [place] # (Auto) Baso # (Auto) Total Counted Seg Neutrophils % Band Neutrophils % Lymphocytes % (Manual) Monocytes % (Manual) Metamyelocytes % Neutrophils # (Manual) Nucleated RBCs Platelet Estimate RBC Morphology Hypochromasia Anisocytosis Microcytosis Target Cells [place] Cells Smear Path Review Percent Retic PT INR Sodium Potassium Chloride Carbon Dioxide BUN Creatinine Estimated GFR BUN/Creatinine Ratio Glucose Lactate Calcium Iron TIBC % Saturation Transferrin Total Bilirubin AST ALT Alkaline Phosphatase Ammonia Lactate Dehydrogenase Total Creatine Kinase CK-MB (CK-2) CK-MB (CK-2) Rel Index Troponin I NT-Pro-B Natriuret Pep Total Protein Albumin Globulin Albumin/Globulin Ratio Procalcitonin Urine Color Brown Urine Appearance Cloudy Urine pH 5.5 Ur Specific [place] 1.020 Urine Protein 2+ H Urine Glucose (UA) Trace H Urine Ketones Negative Urine Occult Blood 3+ H Urine Nitrate Negative Urine Bilirubin Negative Urine Urobilinogen 0.2 Ur Leukocyte Esterase 2+ H Urine RBC 5-10/hpf H Urine WBC 5-10/hpf H Ur Squamous Epith Cells 0-1 /hpf Amorphous Sediment 2+ Urine Bacteria Many (>30) H Ur Culture Indicated? Specimen cultured Nasal Screen MRSA (PCR) Salicylates U Opiates 300ng/mL cut Negative Ur Oxycodone Screen Negative Urine Methadone Screen Negative Acetaminophen Ur Barbiturates Screen Negative U Tricyclic Antidepress Negative Ur Phencyclidine Scrn Negative Ur Amphetamines Screen Negative U Methamphetamines Scrn Negative Ur MDMA Scrn (Ecstasy) Negative U Benzodiazepines Scrn Negative Urine Cocaine Screen Negative U Marijuana (THC) Screen Positive H Ethyl Alcohol SARS-CoV-2 (PCR) Negative Influenza A (RT-PCR) Flu a negative Influenza B (RT-PCR) Flu b negative RSV (PCR) Negative Blood Type Antibody Screen Crossmatch 07/22/22 07/22/22 07/22/22 13:39 13:39 13:39 WBC 17.0 H RBC 3.10 L Hgb 6.6 L* Hct 21.8 L MCV 70.5 L MCH 21.4 L MCHC 30.3 RDW 19.5 H Plt Count 56 L Neut % (Auto) Not Reportable Lymph % (Auto) Not Reportable [place] % (Auto) Not Reportable Eos % (Auto) Not Reportable Baso % (Auto) Not Reportable Lymph # (Auto) Not Reportable [place] # (Auto) Not Reportable Baso # (Auto) Not Reportable Total Counted 100 Seg Neutrophils % 81.0 H Band Neutrophils % 3.0 Lymphocytes % (Manual) 5.0 L Monocytes % (Manual) 10.0 Metamyelocytes % 1.0 H Neutrophils # (Manual) 50519 H Nucleated RBCs 3 H Platelet Estimate Decr RBC Morphology See Hypochromasia 3+ H Anisocytosis 2+ H Microcytosis 2+ H Target Cells 2+ H [place] Cells 2+ H Smear Path Review Percent Retic PT 16.6 H INR 1.4 H Sodium 140 Potassium 5.2 H Chloride 104 Carbon Dioxide 7 L* BUN 159 H* Creatinine 4.35 H Estimated GFR 13 L BUN/Creatinine Ratio 36.6 H Glucose 144 H Lactate Calcium 7.4 L Iron TIBC % Saturation Transferrin Total Bilirubin 1.0 AST 47 ALT 30 Alkaline Phosphatase 208 H Ammonia Lactate Dehydrogenase Total Creatine Kinase CK-MB (CK-2) CK-MB (CK-2) Rel Index Troponin I < 0.012 NT-Pro-B Natriuret Pep 2300 H Total Protein 7.8 Albumin 3.3 L Globulin 4.5 H Albumin/Globulin Ratio 0.7 L Procalcitonin Urine Color Urine Appearance Urine pH Ur Specific [place] Urine Protein Urine Glucose (UA) Urine Ketones Urine Occult Blood Urine Nitrate Urine Bilirubin Urine Urobilinogen Ur Leukocyte Esterase Urine RBC Urine WBC Ur Squamous Epith Cells Amorphous Sediment Urine Bacteria Ur Culture Indicated? Nasal Screen MRSA (PCR) Salicylates U Opiates 300ng/mL cut Ur Oxycodone Screen Urine Methadone Screen Acetaminophen Ur Barbiturates Screen U Tricyclic Antidepress Ur Phencyclidine Scrn Ur Amphetamines Screen U Methamphetamines Scrn Ur MDMA Scrn (Ecstasy) U Benzodiazepines Scrn Urine Cocaine Screen U Marijuana (THC) Screen Ethyl Alcohol SARS-CoV-2 (PCR) Influenza A (RT-PCR) Influenza B (RT-PCR) RSV (PCR) Blood Type Antibody Screen Crossmatch 07/22/22 07/22/22 07/22/22 13:39 13:39 13:39 WBC RBC Hgb Hct MCV MCH MCHC RDW Plt Count Neut % (Auto) Lymph % (Auto) [place] % (Auto) Eos % (Auto) Baso % (Auto) Lymph # (Auto) [place] # (Auto) Baso # (Auto) Total Counted Seg Neutrophils % Band Neutrophils % Lymphocytes % (Manual) Monocytes % (Manual) Metamyelocytes % Neutrophils # (Manual) Nucleated RBCs Platelet Estimate RBC Morphology Hypochromasia Anisocytosis Microcytosis Target Cells [place] Cells Smear Path Review Percent Retic PT INR Sodium Potassium Chloride Carbon Dioxide BUN Creatinine Estimated GFR BUN/Creatinine Ratio Glucose Lactate 6.9 H* Calcium Iron TIBC % Saturation Transferrin Total Bilirubin AST ALT Alkaline Phosphatase Ammonia Lactate Dehydrogenase Total Creatine Kinase 292 H CK-MB (CK-2) 10.00 H CK-MB (CK-2) Rel Index 3.4 Troponin I < 0.012 NT-Pro-B Natriuret Pep Total Protein Albumin Globulin Albumin/Globulin Ratio Procalcitonin 2.20 H Urine Color Urine Appearance Urine pH Ur Specific [place] Urine Protein Urine Glucose (UA) Urine Ketones Urine Occult Blood Urine Nitrate Urine Bilirubin Urine Urobilinogen Ur Leukocyte Esterase Urine RBC Urine WBC Ur Squamous Epith Cells Amorphous Sediment Urine Bacteria Ur Culture Indicated? Nasal Screen MRSA (PCR) Salicylates U Opiates 300ng/mL cut Ur Oxycodone Screen Urine Methadone Screen Acetaminophen Ur Barbiturates Screen U Tricyclic Antidepress Ur Phencyclidine Scrn Ur Amphetamines Screen U Methamphetamines Scrn Ur MDMA Scrn (Ecstasy) U Benzodiazepines Scrn Urine Cocaine Screen U Marijuana (THC) Screen Ethyl Alcohol SARS-CoV-2 (PCR) Influenza A (RT-PCR) Influenza B (RT-PCR) RSV (PCR) Blood Type Antibody Screen Crossmatch 07/22/22 07/22/22 07/22/22 15:30 15:51 20:00 WBC RBC Hgb Hct MCV MCH MCHC RDW Plt Count Neut % (Auto) Lymph % (Auto) [place] % (Auto) Eos % (Auto) Baso % (Auto) Lymph # (Auto) [place] # (Auto) Baso # (Auto) Total Counted Seg Neutrophils % Band Neutrophils % Lymphocytes % (Manual) Monocytes % (Manual) Metamyelocytes % Neutrophils # (Manual) Nucleated RBCs Platelet Estimate RBC Morphology Hypochromasia Anisocytosis Microcytosis Target Cells [place] Cells Smear Path Review Percent Retic PT INR Sodium 138 Potassium 5.7 H Chloride 105 Carbon Dioxide 13 L BUN 161 H* Creatinine 3.91 H Estimated GFR 15 L BUN/Creatinine Ratio 41.2 H Glucose 112 H Lactate 5.6 H* Calcium 6.6 L Iron TIBC % Saturation Transferrin Total Bilirubin 0.8 AST 48 ALT 26 Alkaline Phosphatase 203 H Ammonia Lactate Dehydrogenase Total Creatine Kinase CK-MB (CK-2) CK-MB (CK-2) Rel Index Troponin I NT-Pro-B Natriuret Pep Total Protein 6.7 Albumin 2.7 L Globulin 4.0 Albumin/Globulin Ratio 0.7 L Procalcitonin Urine Color Urine Appearance Urine pH Ur Specific [place] Urine Protein Urine Glucose (UA) Urine Ketones Urine Occult Blood Urine Nitrate Urine Bilirubin Urine Urobilinogen Ur Leukocyte Esterase Urine RBC Urine WBC Ur Squamous Epith Cells Amorphous Sediment Urine Bacteria Ur Culture Indicated? Nasal Screen MRSA (PCR) Salicylates U Opiates 300ng/mL cut Ur Oxycodone Screen Urine Methadone Screen Acetaminophen Ur Barbiturates Screen U Tricyclic Antidepress Ur Phencyclidine Scrn Ur Amphetamines Screen U Methamphetamines Scrn Ur MDMA Scrn (Ecstasy) U Benzodiazepines Scrn Urine Cocaine Screen U Marijuana (THC) Screen Ethyl Alcohol SARS-CoV-2 (PCR) Influenza A (RT-PCR) Influenza B (RT-PCR) RSV (PCR) Blood Type A Positive Antibody Screen Negative Crossmatch See Detail 07/22/22 07/22/22 07/22/22 20:00 20:00 20:00 WBC RBC Hgb Hct MCV MCH MCHC RDW Plt Count Neut % (Auto) Lymph % (Auto) [place] % (Auto) Eos % (Auto) Baso % (Auto) Lymph # (Auto) [place] # (Auto) Baso # (Auto) Total Counted Seg Neutrophils % Band Neutrophils % Lymphocytes % (Manual) Monocytes % (Manual) Metamyelocytes % Neutrophils # (Manual) Nucleated RBCs Platelet Estimate RBC Morphology Hypochromasia Anisocytosis Microcytosis Target Cells [place] Cells Smear Path Review Percent Retic PT INR Sodium Potassium Chloride Carbon Dioxide BUN Creatinine Estimated GFR BUN/Creatinine Ratio Glucose Lactate Calcium Iron 25 L TIBC 274 % Saturation 9 L Transferrin 206 Total Bilirubin AST ALT Alkaline Phosphatase Ammonia Lactate Dehydrogenase 401 H Total Creatine Kinase CK-MB (CK-2) CK-MB (CK-2) Rel Index Troponin I NT-Pro-B Natriuret Pep Total Protein Albumin Globulin Albumin/Globulin Ratio Procalcitonin Urine Color Urine Appearance Urine pH Ur Specific [place] Urine Protein Urine Glucose (UA) Urine Ketones Urine Occult Blood Urine Nitrate Urine Bilirubin Urine Urobilinogen Ur Leukocyte Esterase Urine RBC Urine WBC Ur Squamous Epith Cells Amorphous Sediment Urine Bacteria Ur Culture Indicated? Nasal Screen MRSA (PCR) Salicylates < 1.0 U Opiates 300ng/mL cut Ur Oxycodone Screen Urine Methadone Screen Acetaminophen < 10 Ur Barbiturates Screen U Tricyclic Antidepress Ur Phencyclidine Scrn Ur Amphetamines Screen U Methamphetamines Scrn Ur MDMA Scrn (Ecstasy) U Benzodiazepines Scrn Urine Cocaine Screen U Marijuana (THC) Screen Ethyl Alcohol < 10 SARS-CoV-2 (PCR) Influenza A (RT-PCR) Influenza B (RT-PCR) RSV (PCR) Blood Type Antibody Screen Crossmatch 07/22/22 07/22/22 07/22/22 23:30 23:30 23:30 WBC RBC Hgb 8.8 L Hct 28.2 L MCV MCH MCHC RDW Plt Count Neut % (Auto) Lymph % (Auto) [place] % (Auto) Eos % (Auto) Baso % (Auto) Lymph # (Auto) [place] # (Auto) Baso # (Auto) Total Counted Seg Neutrophils % Band Neutrophils % Lymphocytes % (Manual) Monocytes % (Manual) Metamyelocytes % Neutrophils # (Manual) Nucleated RBCs Platelet Estimate RBC Morphology Hypochromasia Anisocytosis Microcytosis Target Cells [place] Cells Smear Path Review Cancelled Cancelled Percent Retic 2.1 PT INR Sodium Potassium Chloride Carbon Dioxide BUN Creatinine Estimated GFR BUN/Creatinine Ratio Glucose Lactate Calcium Iron TIBC % Saturation Transferrin Total Bilirubin AST ALT Alkaline Phosphatase Ammonia Lactate Dehydrogenase Total Creatine Kinase CK-MB (CK-2) CK-MB (CK-2) Rel Index Troponin I NT-Pro-B Natriuret Pep Total Protein Albumin Globulin Albumin/Globulin Ratio Procalcitonin Urine Color Urine Appearance Urine pH Ur Specific [place] Urine Protein Urine Glucose (UA) Urine Ketones Urine Occult Blood Urine Nitrate Urine Bilirubin Urine Urobilinogen Ur Leukocyte Esterase Urine RBC Urine WBC Ur Squamous Epith Cells Amorphous Sediment Urine Bacteria Ur Culture Indicated? Nasal Screen MRSA (PCR) Salicylates U Opiates 300ng/mL cut Ur Oxycodone Screen Urine Methadone Screen Acetaminophen Ur Barbiturates Screen U Tricyclic Antidepress Ur Phencyclidine Scrn Ur Amphetamines Screen U Methamphetamines Scrn Ur MDMA Scrn (Ecstasy) U Benzodiazepines Scrn Urine Cocaine Screen U Marijuana (THC) Screen Ethyl Alcohol SARS-CoV-2 (PCR) Influenza A (RT-PCR) Influenza B (RT-PCR) RSV (PCR) Blood Type Antibody Screen Crossmatch 07/22/22 07/22/22 07/22/22 23:30 23:54 23:56 WBC RBC Hgb Hct MCV MCH MCHC RDW Plt Count Neut % (Auto) Lymph % (Auto) [place] % (Auto) Eos % (Auto) Baso % (Auto) Lymph # (Auto) [place] # (Auto) Baso # (Auto) Total Counted Seg Neutrophils % Band Neutrophils % Lymphocytes % (Manual) Monocytes % (Manual) Metamyelocytes % Neutrophils # (Manual) Nucleated RBCs Platelet Estimate RBC Morphology Hypochromasia Anisocytosis Microcytosis Target Cells [place] Cells Smear Path Review Percent Retic PT INR Sodium 138 Potassium 6.3 H* Chloride 107 Carbon Dioxide 11 L BUN 161 H* Creatinine 4.03 H Estimated GFR 15 L BUN/Creatinine Ratio 40.0 H Glucose 117 H Lactate 2.4 H Calcium 6.4 L* Iron TIBC % Saturation Transferrin Total Bilirubin AST ALT Alkaline Phosphatase Ammonia Lactate Dehydrogenase Total Creatine Kinase CK-MB (CK-2) CK-MB (CK-2) Rel Index Troponin I NT-Pro-B Natriuret Pep Total Protein Albumin Globulin Albumin/Globulin Ratio Procalcitonin Urine Color Urine Appearance Urine pH Ur Specific [place] Urine Protein Urine Glucose (UA) Urine Ketones Urine Occult Blood Urine Nitrate Urine Bilirubin Urine Urobilinogen Ur Leukocyte Esterase Urine RBC Urine WBC Ur Squamous Epith Cells Amorphous Sediment Urine Bacteria Ur Culture Indicated? Nasal Screen MRSA (PCR) Negative for mrsa Salicylates U Opiates 300ng/mL cut Ur Oxycodone Screen Urine Methadone Screen Acetaminophen Ur Barbiturates Screen U Tricyclic Antidepress Ur Phencyclidine Scrn Ur Amphetamines Screen U Methamphetamines Scrn Ur MDMA Scrn (Ecstasy) U Benzodiazepines Scrn Urine Cocaine Screen U Marijuana (THC) Screen Ethyl Alcohol SARS-CoV-2 (PCR) Influenza A (RT-PCR) Influenza B (RT-PCR) RSV (PCR) Blood Type Antibody Screen Crossmatch 07/23/22 07/23/22 07/23/22 02:21 04:15 04:15 WBC 28.9 H D RBC 3.96 L Hgb 8.9 L Hct 29.4 L MCV 74.4 L D MCH 22.4 L MCHC 30.2 RDW 22.9 H Plt Count 378 Neut % (Auto) Lymph % (Auto) [place] % (Auto) Eos % (Auto) Baso % (Auto) Lymph # (Auto) [place] # (Auto) Baso # (Auto) Total Counted Seg Neutrophils % Band Neutrophils % Lymphocytes % (Manual) Monocytes % (Manual) Metamyelocytes % Neutrophils # (Manual) Nucleated RBCs Platelet Estimate RBC Morphology Hypochromasia Anisocytosis Microcytosis Target Cells [place] Cells Smear Path Review Percent Retic PT 19.1 H INR 1.7 H Sodium Potassium Chloride Carbon Dioxide BUN Creatinine Estimated GFR BUN/Creatinine Ratio Glucose Lactate 4.0 H Calcium Iron TIBC % Saturation Transferrin Total Bilirubin AST ALT Alkaline Phosphatase Ammonia Lactate Dehydrogenase Total Creatine Kinase CK-MB (CK-2) CK-MB (CK-2) Rel Index Troponin I NT-Pro-B Natriuret Pep Total Protein Albumin Globulin Albumin/Globulin Ratio Procalcitonin Urine Color Urine Appearance Urine pH Ur Specific [place] Urine Protein Urine Glucose (UA) Urine Ketones Urine Occult Blood Urine Nitrate Urine Bilirubin Urine Urobilinogen Ur Leukocyte Esterase Urine RBC Urine WBC Ur Squamous Epith Cells Amorphous Sediment Urine Bacteria Ur Culture Indicated? Nasal Screen MRSA (PCR) Salicylates U Opiates 300ng/mL cut Ur Oxycodone Screen Urine Methadone Screen Acetaminophen Ur Barbiturates Screen U Tricyclic Antidepress Ur Phencyclidine Scrn Ur Amphetamines Screen U Methamphetamines Scrn Ur MDMA Scrn (Ecstasy) U Benzodiazepines Scrn Urine Cocaine Screen U Marijuana (THC) Screen Ethyl Alcohol SARS-CoV-2 (PCR) Influenza A (RT-PCR) Influenza B (RT-PCR) RSV (PCR) Blood Type Antibody Screen Crossmatch 07/23/22 07/23/22 05:40 05:40 WBC RBC Hgb Hct MCV MCH MCHC RDW Plt Count Neut % (Auto) Lymph % (Auto) [place] % (Auto) Eos % (Auto) Baso % (Auto) Lymph # (Auto) [place] # (Auto) Baso # (Auto) Total Counted Seg Neutrophils % Band Neutrophils % Lymphocytes % (Manual) Monocytes % (Manual) Metamyelocytes % Neutrophils # (Manual) Nucleated RBCs Platelet Estimate RBC Morphology Hypochromasia Anisocytosis Microcytosis Target Cells [place] Cells Smear Path Review Percent Retic PT INR Sodium 136 L Potassium TNP Chloride 107 Carbon Dioxide 11 L BUN 166 H* Creatinine 3.81 H Estimated GFR 16 L BUN/Creatinine Ratio 43.6 H Glucose 104 Lactate Calcium 6.0 L* Iron TIBC % Saturation Transferrin Total Bilirubin AST ALT Alkaline Phosphatase Ammonia 107 H Lactate Dehydrogenase Total Creatine Kinase CK-MB (CK-2) CK-MB (CK-2) Rel Index Troponin I NT-Pro-B Natriuret Pep Total Protein Albumin Globulin Albumin/Globulin Ratio Procalcitonin Urine Color Urine Appearance Urine pH Ur Specific [place] Urine Protein Urine Glucose (UA) Urine Ketones Urine Occult Blood Urine Nitrate Urine Bilirubin Urine Urobilinogen Ur Leukocyte Esterase Urine RBC Urine WBC Ur Squamous Epith Cells Amorphous Sediment Urine Bacteria Ur Culture Indicated? Nasal Screen MRSA (PCR) Salicylates U Opiates 300ng/mL cut Ur Oxycodone Screen Urine Methadone Screen Acetaminophen Ur Barbiturates Screen U Tricyclic Antidepress Ur Phencyclidine Scrn Ur Amphetamines Screen U Methamphetamines Scrn Ur MDMA Scrn (Ecstasy) U Benzodiazepines Scrn Urine Cocaine Screen U Marijuana (THC) Screen Ethyl Alcohol SARS-CoV-2 (PCR) Influenza A (RT-PCR) Influenza B (RT-PCR) RSV (PCR) Blood Type Antibody Screen Crossmatch [facility] Social History Smoking Status: Never smoker Assessment & Plan Assessment & Plan narrative: 1. Sepsis secondary to possible ischemic bowel with pneumatosis -presented with significant leukocytosis, elevated lactate, and elevated procalcitonin -did receive vanco/zosyn initially, changed to meropenem -UA positive concerning for UTI -urine cultures, blood cultures pending -CT chest negative for pneumonia, CXR normal -MRSA swab negative, stopped vanco -continue meropenem at renal dosing is 500mg q12hr -CT abdomen concerning for left-sided colonic pneumatosis with ischemic colitis -Dr. Gutierrez, gen surg consulted and will take emergently to [place] -[facility] [place] has accepted patient and has a bed, plan is to airlift from PACU following surgery 2. Acute renal failure with hyperkalemia -etiology unclear -rhodes in place, unlikely obstructive process -suspect secondary to ATN possibly from sepsis -significant uremia with BUN in 160s, Cr up to 4.46 -fluid resuscitation has led to minimal improvement in renal function and patient appears oliguric -strict I/O's -K initially 6.3 and now down to 5.2 with calcium, dextrose, insulin -continue BMP q4h 3. Anemia and thrombocytopenia -low MCV of 72 with Hgb 6.6 intially s/p 2 units PRBC's, now 9.3 -iron studies sent and low -patient cachectic, suspect possible GI process -guaiac positive stool, possibly from ischemic colitis as above -low retic percent possibly from iron deficiency or renal disease -mildly elevated LDH could be consistent with hemolyzing, however normal bilirubin makes this less likely -haptoglobin pending -thrombocytopenia also concerning, ordered peripheral smear to consider other etiologies such as TMA disease (HUS, TTP) or DIC, though could be secondary to sepsis 5. Foot wounds -wound care consulted -per patient secondary to frostbite 6. Acute encephalopathy -suspect multifactorial secondary to sepsis uremia -denies Etoh abuse, ethanol negative and Utox only positive for THC -treat medical issues as noted above CODE: Presumed full code for now, but unknown Proxy: unknown, called multiple numbers in the EMR with no answer I have utilized all available resources to reconcile the patient's home medications Medicine will continue to follow. Thank you for allowing us to participate in the care of this patient. Should you have any further questions, do not hesitate to speak with us directly or call us. Time Spent With Patient Critical Care time: I spent a total of [] minutes of critical care time on this patient's care today; this time is exclusive of procedural time.
[2022-07-23 08:53] LABS: Hematocrit 29.6 % (41-53); Hemoglobin 9.3 g/dL (13.5-17.5); Mean Corpuscular HGB Conc 31.2 % (30-36); Mean Corpuscular Hemoglobin 22.7 PG (26-34); Mean Corpuscular Volume 72.7 fL (80-100); Platelet Count 416 X10^3/uL (150-400); Red Blood Cell Count 4.08 X10^6/uL (4.5-5.9); Red Cell Distribution Width 21.8 % (11.6-14.8)
[2022-07-23 08:54] LABS: Add Manual Diff / Slide Review YES; White Blood Cell Count 32.9 X10^3/uL (4.5-11.0)
[2022-07-23] MEDS: HYDROMORPHONE 1 MG INJ IV (08:54)
[2022-07-23 09:07] LABS: Calcium 6.6 mg/dL (8.4-10.2); Carbon Dioxide 12 mmol/L (22-32); Chloride 109 mmol/L (98-107); Glucose 91 mg/dL (80-110); HEMOLYSIS < 15 (0-50); Potassium 5.2 mmol/L (3.4-5.1); Sodium 142 mmol/L (137-145)
--- NOTE | 2022-07-23 09:11 | PM.HP.1 ---
History of Present Illness History of Present Illness Date Patient Seen: 07/23/22 Time Patient Seen: 09:11 Chief complaint: resp issues, poss pneumonia Narrative: Mr. Greenfield is a 76 year old man found by his friend in his car where he has been living for the past several days. He was reportedly covered in urine and stool. He was brought into the ER by a friend. He has not been able to provide much of history. He was noted to have a markedly elevated white blood cell count, potassium and lactate. Underwent a CT scan in the ER last night which showed a markedly distended colon. A repeat CT scan today showed worsening of the colonic distention as well as possible pneumatosis left colon. Further history is limited by the patient's altered mental status. Patient History Family & Social History Safety & Behavioral: Feels Safe in Current Yes Environment Been Physically Hurt or No Threatened By a Person Tobacco & Substance use: Smoking Status Never smoker alcohol intake frequency 0-2 drinks per day Substance Use Type does not use Meds Home Medications and Allergies Allergies Allergy/AdvReac Type Severity Reaction Status Date / Time No Known Drug Allergies Allergy Verified 07/22/22 11:14 Exam Vital Signs (past 8 hours): - 07/23/22 01:30 07/23/22 01:30 07/23/22 02:00 Temperature 98.8 F Pulse Rate 102 H Respiratory Rate 32 H Blood Pressure 140/96 H 154/76 H Pulse Oximetry 100 Oxygen Delivery Method 07/23/22 02:00 07/23/22 02:30 07/23/22 02:30 Temperature 98.8 F 98.8 F Pulse Rate 104 H 99 H Respiratory Rate 30 H 24 Blood Pressure 139/95 H Pulse Oximetry 100 99 Oxygen Delivery Method 07/23/22 03:00 07/23/22 03:00 07/23/22 03:30 Temperature 98.6 F Pulse Rate 101 H Respiratory Rate 30 H Blood Pressure 130/86 140/99 H Pulse Oximetry 100 Oxygen Delivery Method 07/23/22 03:30 07/23/22 04:00 07/23/22 04:00 Temperature 98.4 F 98.4 F Pulse Rate 98 H 97 H Respiratory Rate 28 H 26 H Blood Pressure 130/81 Pulse Oximetry 100 99 Oxygen Delivery Method 07/23/22 04:30 07/23/22 04:30 07/23/22 05:04 Temperature 98.4 F 98.6 F Pulse Rate 93 H 96 H Respiratory Rate 33 H 32 H Blood Pressure 135/85 Pulse Oximetry 100 Oxygen Delivery Method 07/23/22 05:30 07/23/22 06:06 07/23/22 06:30 Temperature 98.8 F Pulse Rate 97 H 86 Respiratory Rate 31 H 29 H Blood Pressure 135/95 H Pulse Oximetry 93 Oxygen Delivery Method 07/23/22 06:30 07/23/22 07:00 07/23/22 07:00 Temperature 98.8 F 98.8 F Pulse Rate 100 H 101 H Respiratory Rate 25 H 26 H Blood Pressure 129/83 Pulse Oximetry 98 Oxygen Delivery Method Room Air 07/23/22 07:30 07/23/22 07:30 07/23/22 08:00 Temperature 98.4 F 98.4 F Pulse Rate 93 H 95 H Respiratory Rate 21 24 Blood Pressure 134/86 Pulse Oximetry 95 Oxygen Delivery Method 07/23/22 08:30 07/23/22 08:32 07/23/22 08:32 Temperature 98.2 F 98.2 F Pulse Rate 91 H 92 H Respiratory Rate 23 Blood Pressure 135/63 Pulse Oximetry 95 Oxygen Delivery Method Oxygen Delivery Method Room Air Narrative Exam Narrative: The patient is not conversant Tachypneic Abdomen is distended without angelita peritonitis Objective Labs Result Diagrams: 07/23/22 08:20 07/23/22 08:20 Labs: Laboratory Results - last 24 hr 07/22/22 07/22/22 07/22/22 12:00 13:00 13:00 WBC RBC Hgb Hct MCV MCH MCHC RDW Plt Count Neut % (Auto) Lymph % (Auto) [place] % (Auto) Eos % (Auto) Baso % (Auto) Lymph # (Auto) Davidson # (Auto) Baso # (Auto) Total Counted Seg Neutrophils % Band Neutrophils % Lymphocytes % (Manual) Monocytes % (Manual) Metamyelocytes % Neutrophils # (Manual) Nucleated RBCs Platelet Estimate RBC Morphology Hypochromasia Anisocytosis Microcytosis Target Cells [place] Cells Smear Path Review Percent Retic PT INR Sodium Potassium Chloride Carbon Dioxide BUN Creatinine Estimated GFR BUN/Creatinine Ratio Glucose Lactate Calcium Iron TIBC % Saturation Transferrin Total Bilirubin AST ALT Alkaline Phosphatase Ammonia Lactate Dehydrogenase Total Creatine Kinase CK-MB (CK-2) CK-MB (CK-2) Rel Index Troponin I NT-Pro-B Natriuret Pep Total Protein Albumin Globulin Albumin/Globulin Ratio Procalcitonin Urine Color Brown Urine Appearance Cloudy Urine pH 5.5 Ur Specific [place] 1.020 Urine Protein 2+ H Urine Glucose (UA) Trace H Urine Ketones Negative Urine Occult Blood 3+ H Urine Nitrate Negative Urine Bilirubin Negative Urine Urobilinogen 0.2 Ur Leukocyte Esterase 2+ H Urine RBC 5-10/hpf H Urine WBC 5-10/hpf H Ur Squamous Epith Cells 0-1 /hpf Amorphous Sediment 2+ Urine Bacteria Many (>30) H Ur Culture Indicated? Specimen cultured Nasal Screen MRSA (PCR) Salicylates U Opiates 300ng/mL cut Negative Ur Oxycodone Screen Negative Urine Methadone Screen Negative Acetaminophen Ur Barbiturates Screen Negative U Tricyclic Antidepress Negative Ur Phencyclidine Scrn Negative Ur Amphetamines Screen Negative U Methamphetamines Scrn Negative Ur MDMA Scrn (Ecstasy) Negative U Benzodiazepines Scrn Negative Urine Cocaine Screen Negative U Marijuana (THC) Screen Positive H Ethyl Alcohol SARS-CoV-2 (PCR) Negative Influenza A (RT-PCR) Flu a negative Influenza B (RT-PCR) Flu b negative RSV (PCR) Negative Blood Type Antibody Screen Crossmatch 07/22/22 07/22/22 07/22/22 13:39 13:39 13:39 WBC 17.0 H RBC 3.10 L Hgb 6.6 L* Hct 21.8 L MCV 70.5 L MCH 21.4 L MCHC 30.3 RDW 19.5 H Plt Count 56 L Neut % (Auto) Not Reportable Lymph % (Auto) Not Reportable Davidson % (Auto) Not Reportable Eos % (Auto) Not Reportable Baso % (Auto) Not Reportable Lymph # (Auto) Not Reportable Davidson # (Auto) Not Reportable Baso # (Auto) Not Reportable Total Counted 100 Seg Neutrophils % 81.0 H Band Neutrophils % 3.0 Lymphocytes % (Manual) 5.0 L Monocytes % (Manual) 10.0 Metamyelocytes % 1.0 H Neutrophils # (Manual) 70260 H Nucleated RBCs 3 H Platelet Estimate Decr RBC Morphology See Hypochromasia 3+ H Anisocytosis 2+ H Microcytosis 2+ H Target Cells 2+ H Gianni Cells 2+ H Smear Path Review Percent Retic PT 16.6 H INR 1.4 H Sodium 140 Potassium 5.2 H Chloride 104 Carbon Dioxide 7 L* BUN 159 H* Creatinine 4.35 H Estimated GFR 13 L BUN/Creatinine Ratio 36.6 H Glucose 144 H Lactate Calcium 7.4 L Iron TIBC % Saturation Transferrin Total Bilirubin 1.0 AST 47 ALT 30 Alkaline Phosphatase 208 H Ammonia Lactate Dehydrogenase Total Creatine Kinase CK-MB (CK-2) CK-MB (CK-2) Rel Index Troponin I < 0.012 NT-Pro-B Natriuret Pep 2300 H Total Protein 7.8 Albumin 3.3 L Globulin 4.5 H Albumin/Globulin Ratio 0.7 L Procalcitonin Urine Color Urine Appearance Urine pH Ur Specific [place] Urine Protein Urine Glucose (UA) Urine Ketones Urine Occult Blood Urine Nitrate Urine Bilirubin Urine Urobilinogen Ur Leukocyte Esterase Urine RBC Urine WBC Ur Squamous Epith Cells Amorphous Sediment Urine Bacteria Ur Culture Indicated? Nasal Screen MRSA (PCR) Salicylates U Opiates 300ng/mL cut Ur Oxycodone Screen Urine Methadone Screen Acetaminophen Ur Barbiturates Screen U Tricyclic Antidepress Ur Phencyclidine Scrn Ur Amphetamines Screen U Methamphetamines Scrn Ur MDMA Scrn (Ecstasy) U Benzodiazepines Scrn Urine Cocaine Screen U Marijuana (THC) Screen Ethyl Alcohol SARS-CoV-2 (PCR) Influenza A (RT-PCR) Influenza B (RT-PCR) RSV (PCR) Blood Type Antibody Screen Crossmatch 07/22/22 07/22/22 07/22/22 13:39 13:39 13:39 WBC RBC Hgb Hct MCV MCH MCHC RDW Plt Count Neut % (Auto) Lymph % (Auto) [place] % (Auto) Eos % (Auto) Baso % (Auto) Lymph # (Auto) [place] # (Auto) Baso # (Auto) Total Counted Seg Neutrophils % Band Neutrophils % Lymphocytes % (Manual) Monocytes % (Manual) Metamyelocytes % Neutrophils # (Manual) Nucleated RBCs Platelet Estimate RBC Morphology Hypochromasia Anisocytosis Microcytosis Target Cells [place] Cells Smear Path Review Percent Retic PT INR Sodium Potassium Chloride Carbon Dioxide BUN Creatinine Estimated GFR BUN/Creatinine Ratio Glucose Lactate 6.9 H* Calcium Iron TIBC % Saturation Transferrin Total Bilirubin AST ALT Alkaline Phosphatase Ammonia Lactate Dehydrogenase Total Creatine Kinase 292 H CK-MB (CK-2) 10.00 H CK-MB (CK-2) Rel Index 3.4 Troponin I < 0.012 NT-Pro-B Natriuret Pep Total Protein Albumin Globulin Albumin/Globulin Ratio Procalcitonin 2.20 H Urine Color Urine Appearance Urine pH Ur Specific [place] Urine Protein Urine Glucose (UA) Urine Ketones Urine Occult Blood Urine Nitrate Urine Bilirubin Urine Urobilinogen Ur Leukocyte Esterase Urine RBC Urine WBC Ur Squamous Epith Cells Amorphous Sediment Urine Bacteria Ur Culture Indicated? Nasal Screen MRSA (PCR) Salicylates U Opiates 300ng/mL cut Ur Oxycodone Screen Urine Methadone Screen Acetaminophen Ur Barbiturates Screen U Tricyclic Antidepress Ur Phencyclidine Scrn Ur Amphetamines Screen U Methamphetamines Scrn Ur MDMA Scrn (Ecstasy) U Benzodiazepines Scrn Urine Cocaine Screen U Marijuana (THC) Screen Ethyl Alcohol SARS-CoV-2 (PCR) Influenza A (RT-PCR) Influenza B (RT-PCR) RSV (PCR) Blood Type Antibody Screen Crossmatch 07/22/22 07/22/22 07/22/22 15:30 15:51 20:00 WBC RBC Hgb Hct MCV MCH MCHC RDW Plt Count Neut % (Auto) Lymph % (Auto) [place] % (Auto) Eos % (Auto) Baso % (Auto) Lymph # (Auto) [place] # (Auto) Baso # (Auto) Total Counted Seg Neutrophils % Band Neutrophils % Lymphocytes % (Manual) Monocytes % (Manual) Metamyelocytes % Neutrophils # (Manual) Nucleated RBCs Platelet Estimate RBC Morphology Hypochromasia Anisocytosis Microcytosis Target Cells Gianni Cells Smear Path Review Percent Retic PT INR Sodium 138 Potassium 5.7 H Chloride 105 Carbon Dioxide 13 L BUN 161 H* Creatinine 3.91 H Estimated GFR 15 L BUN/Creatinine Ratio 41.2 H Glucose 112 H Lactate 5.6 H* Calcium 6.6 L Iron TIBC % Saturation Transferrin Total Bilirubin 0.8 AST 48 ALT 26 Alkaline Phosphatase 203 H Ammonia Lactate Dehydrogenase Total Creatine Kinase CK-MB (CK-2) CK-MB (CK-2) Rel Index Troponin I NT-Pro-B Natriuret Pep Total Protein 6.7 Albumin 2.7 L Globulin 4.0 Albumin/Globulin Ratio 0.7 L Procalcitonin Urine Color Urine Appearance Urine pH Ur Specific [place] Urine Protein Urine Glucose (UA) Urine Ketones Urine Occult Blood Urine Nitrate Urine Bilirubin Urine Urobilinogen Ur Leukocyte Esterase Urine RBC Urine WBC Ur Squamous Epith Cells Amorphous Sediment Urine Bacteria Ur Culture Indicated? Nasal Screen MRSA (PCR) Salicylates U Opiates 300ng/mL cut Ur Oxycodone Screen Urine Methadone Screen Acetaminophen Ur Barbiturates Screen U Tricyclic Antidepress Ur Phencyclidine Scrn Ur Amphetamines Screen U Methamphetamines Scrn Ur MDMA Scrn (Ecstasy) U Benzodiazepines Scrn Urine Cocaine Screen U Marijuana (THC) Screen Ethyl Alcohol SARS-CoV-2 (PCR) Influenza A (RT-PCR) Influenza B (RT-PCR) RSV (PCR) Blood Type A Positive Antibody Screen Negative Crossmatch See Detail 07/22/22 07/22/22 07/22/22 20:00 20:00 20:00 WBC RBC Hgb Hct MCV MCH MCHC RDW Plt Count Neut % (Auto) Lymph % (Auto) [place] % (Auto) Eos % (Auto) Baso % (Auto) Lymph # (Auto) [place] # (Auto) Baso # (Auto) Total Counted Seg Neutrophils % Band Neutrophils % Lymphocytes % (Manual) Monocytes % (Manual) Metamyelocytes % Neutrophils # (Manual) Nucleated RBCs Platelet Estimate RBC Morphology Hypochromasia Anisocytosis Microcytosis Target Cells [place] Cells Smear Path Review Percent Retic PT INR Sodium Potassium Chloride Carbon Dioxide BUN Creatinine Estimated GFR BUN/Creatinine Ratio Glucose Lactate Calcium Iron 25 L TIBC 274 % Saturation 9 L Transferrin 206 Total Bilirubin AST ALT Alkaline Phosphatase Ammonia Lactate Dehydrogenase 401 H Total Creatine Kinase CK-MB (CK-2) CK-MB (CK-2) Rel Index Troponin I NT-Pro-B Natriuret Pep Total Protein Albumin Globulin Albumin/Globulin Ratio Procalcitonin Urine Color Urine Appearance Urine pH Ur Specific [place] Urine Protein Urine Glucose (UA) Urine Ketones Urine Occult Blood Urine Nitrate Urine Bilirubin Urine Urobilinogen Ur Leukocyte Esterase Urine RBC Urine WBC Ur Squamous Epith Cells Amorphous Sediment Urine Bacteria Ur Culture Indicated? Nasal Screen MRSA (PCR) Salicylates < 1.0 U Opiates 300ng/mL cut Ur Oxycodone Screen Urine Methadone Screen Acetaminophen < 10 Ur Barbiturates Screen U Tricyclic Antidepress Ur Phencyclidine Scrn Ur Amphetamines Screen U Methamphetamines Scrn Ur MDMA Scrn (Ecstasy) U Benzodiazepines Scrn Urine Cocaine Screen U Marijuana (THC) Screen Ethyl Alcohol < 10 SARS-CoV-2 (PCR) Influenza A (RT-PCR) Influenza B (RT-PCR) RSV (PCR) Blood Type Antibody Screen Crossmatch 07/22/22 07/22/22 07/22/22 23:30 23:30 23:30 WBC RBC Hgb 8.8 L Hct 28.2 L MCV MCH MCHC RDW Plt Count Neut % (Auto) Lymph % (Auto) [place] % (Auto) Eos % (Auto) Baso % (Auto) Lymph # (Auto) [place] # (Auto) Baso # (Auto) Total Counted Seg Neutrophils % Band Neutrophils % Lymphocytes % (Manual) Monocytes % (Manual) Metamyelocytes % Neutrophils # (Manual) Nucleated RBCs Platelet Estimate RBC Morphology Hypochromasia Anisocytosis Microcytosis Target Cells Gianni Cells Smear Path Review Cancelled Cancelled Percent Retic 2.1 PT INR Sodium Potassium Chloride Carbon Dioxide BUN Creatinine Estimated GFR BUN/Creatinine Ratio Glucose Lactate Calcium Iron TIBC % Saturation Transferrin Total Bilirubin AST ALT Alkaline Phosphatase Ammonia Lactate Dehydrogenase Total Creatine Kinase CK-MB (CK-2) CK-MB (CK-2) Rel Index Troponin I NT-Pro-B Natriuret Pep Total Protein Albumin Globulin Albumin/Globulin Ratio Procalcitonin Urine Color Urine Appearance Urine pH Ur Specific [place] Urine Protein Urine Glucose (UA) Urine Ketones Urine Occult Blood Urine Nitrate Urine Bilirubin Urine Urobilinogen Ur Leukocyte Esterase Urine RBC Urine WBC Ur Squamous Epith Cells Amorphous Sediment Urine Bacteria Ur Culture Indicated? Nasal Screen MRSA (PCR) Salicylates U Opiates 300ng/mL cut Ur Oxycodone Screen Urine Methadone Screen Acetaminophen Ur Barbiturates Screen U Tricyclic Antidepress Ur Phencyclidine Scrn Ur Amphetamines Screen U Methamphetamines Scrn Ur MDMA Scrn (Ecstasy) U Benzodiazepines Scrn Urine Cocaine Screen U Marijuana (THC) Screen Ethyl Alcohol SARS-CoV-2 (PCR) Influenza A (RT-PCR) Influenza B (RT-PCR) RSV (PCR) Blood Type Antibody Screen Crossmatch 07/22/22 07/22/22 07/22/22 23:30 23:54 23:56 WBC RBC Hgb Hct MCV MCH MCHC RDW Plt Count Neut % (Auto) Lymph % (Auto) [place] % (Auto) Eos % (Auto) Baso % (Auto) Lymph # (Auto) [place] # (Auto) Baso # (Auto) Total Counted Seg Neutrophils % Band Neutrophils % Lymphocytes % (Manual) Monocytes % (Manual) Metamyelocytes % Neutrophils # (Manual) Nucleated RBCs Platelet Estimate RBC Morphology Hypochromasia Anisocytosis Microcytosis Target Cells [place] Cells Smear Path Review Percent Retic PT INR Sodium 138 Potassium 6.3 H* Chloride 107 Carbon Dioxide 11 L BUN 161 H* Creatinine 4.03 H Estimated GFR 15 L BUN/Creatinine Ratio 40.0 H Glucose 117 H Lactate 2.4 H Calcium 6.4 L* Iron TIBC % Saturation Transferrin Total Bilirubin AST ALT Alkaline Phosphatase Ammonia Lactate Dehydrogenase Total Creatine Kinase CK-MB (CK-2) CK-MB (CK-2) Rel Index Troponin I NT-Pro-B Natriuret Pep Total Protein Albumin Globulin Albumin/Globulin Ratio Procalcitonin Urine Color Urine Appearance Urine pH Ur Specific [place] Urine Protein Urine Glucose (UA) Urine Ketones Urine Occult Blood Urine Nitrate Urine Bilirubin Urine Urobilinogen Ur Leukocyte Esterase Urine RBC Urine WBC Ur Squamous Epith Cells Amorphous Sediment Urine Bacteria Ur Culture Indicated? Nasal Screen MRSA (PCR) Negative for mrsa Salicylates U Opiates 300ng/mL cut Ur Oxycodone Screen Urine Methadone Screen Acetaminophen Ur Barbiturates Screen U Tricyclic Antidepress Ur Phencyclidine Scrn Ur Amphetamines Screen U Methamphetamines Scrn Ur MDMA Scrn (Ecstasy) U Benzodiazepines Scrn Urine Cocaine Screen U Marijuana (THC) Screen Ethyl Alcohol SARS-CoV-2 (PCR) Influenza A (RT-PCR) Influenza B (RT-PCR) RSV (PCR) Blood Type Antibody Screen Crossmatch 07/23/22 07/23/22 07/23/22 02:21 04:15 04:15 WBC 28.9 H D RBC 3.96 L Hgb 8.9 L Hct 29.4 L MCV 74.4 L D MCH 22.4 L MCHC 30.2 RDW 22.9 H Plt Count 378 Neut % (Auto) Lymph % (Auto) [place] % (Auto) Eos % (Auto) Baso % (Auto) Lymph # (Auto) [place] # (Auto) Baso # (Auto) Total Counted Seg Neutrophils % Band Neutrophils % Lymphocytes % (Manual) Monocytes % (Manual) Metamyelocytes % Neutrophils # (Manual) Nucleated RBCs Platelet Estimate RBC Morphology Hypochromasia Anisocytosis Microcytosis Target Cells Gianni Cells Smear Path Review Percent Retic PT 19.1 H INR 1.7 H Sodium Potassium Chloride Carbon Dioxide BUN Creatinine Estimated GFR BUN/Creatinine Ratio Glucose Lactate 4.0 H Calcium Iron TIBC % Saturation Transferrin Total Bilirubin AST ALT Alkaline Phosphatase Ammonia Lactate Dehydrogenase Total Creatine Kinase CK-MB (CK-2) CK-MB (CK-2) Rel Index Troponin I NT-Pro-B Natriuret Pep Total Protein Albumin Globulin Albumin/Globulin Ratio Procalcitonin Urine Color Urine Appearance Urine pH Ur Specific [place] Urine Protein Urine Glucose (UA) Urine Ketones Urine Occult Blood Urine Nitrate Urine Bilirubin Urine Urobilinogen Ur Leukocyte Esterase Urine RBC Urine WBC Ur Squamous Epith Cells Amorphous Sediment Urine Bacteria Ur Culture Indicated? Nasal Screen MRSA (PCR) Salicylates U Opiates 300ng/mL cut Ur Oxycodone Screen Urine Methadone Screen Acetaminophen Ur Barbiturates Screen U Tricyclic Antidepress Ur Phencyclidine Scrn Ur Amphetamines Screen U Methamphetamines Scrn Ur MDMA Scrn (Ecstasy) U Benzodiazepines Scrn Urine Cocaine Screen U Marijuana (THC) Screen Ethyl Alcohol SARS-CoV-2 (PCR) Influenza A (RT-PCR) Influenza B (RT-PCR) RSV (PCR) Blood Type Antibody Screen Crossmatch 07/23/22 07/23/22 07/23/22 05:40 05:40 08:20 WBC RBC Hgb Hct MCV MCH MCHC RDW Plt Count Neut % (Auto) Lymph % (Auto) [place] % (Auto) Eos % (Auto) Baso % (Auto) Lymph # (Auto) [place] # (Auto) Baso # (Auto) Total Counted Seg Neutrophils % Band Neutrophils % Lymphocytes % (Manual) Monocytes % (Manual) Metamyelocytes % Neutrophils # (Manual) Nucleated RBCs Platelet Estimate RBC Morphology Hypochromasia Anisocytosis Microcytosis Target Cells Gianni Cells Smear Path Review Percent Retic PT INR Sodium 136 L 142 Potassium TNP 5.2 H Chloride 107 109 H Carbon Dioxide 11 L 12 L BUN 166 H* Creatinine 3.81 H Estimated GFR 16 L BUN/Creatinine Ratio 43.6 H Glucose 104 91 Lactate Calcium 6.0 L* 6.6 L Iron TIBC % Saturation Transferrin Total Bilirubin AST ALT Alkaline Phosphatase Ammonia 107 H Lactate Dehydrogenase Total Creatine Kinase CK-MB (CK-2) CK-MB (CK-2) Rel Index Troponin I NT-Pro-B Natriuret Pep Total Protein Albumin Globulin Albumin/Globulin Ratio Procalcitonin Urine Color Urine Appearance Urine pH Ur Specific [place] Urine Protein Urine Glucose (UA) Urine Ketones Urine Occult Blood Urine Nitrate Urine Bilirubin Urine Urobilinogen Ur Leukocyte Esterase Urine RBC Urine WBC Ur Squamous Epith Cells Amorphous Sediment Urine Bacteria Ur Culture Indicated? Nasal Screen MRSA (PCR) Salicylates U Opiates 300ng/mL cut Ur Oxycodone Screen Urine Methadone Screen Acetaminophen Ur Barbiturates Screen U Tricyclic Antidepress Ur Phencyclidine Scrn Ur Amphetamines Screen U Methamphetamines Scrn Ur MDMA Scrn (Ecstasy) U Benzodiazepines Scrn Urine Cocaine Screen U Marijuana (THC) Screen Ethyl Alcohol SARS-CoV-2 (PCR) Influenza A (RT-PCR) Influenza B (RT-PCR) RSV (PCR) Blood Type Antibody Screen Crossmatch 07/23/22 08:20 WBC 32.9 H* RBC 4.08 L Hgb 9.3 L Hct 29.6 L MCV 72.7 L MCH 22.7 L MCHC 31.2 RDW 21.8 H Plt Count 416 H Neut % (Auto) Not Reportable Lymph % (Auto) Not Reportable [place] % (Auto) Not Reportable Eos % (Auto) Not Reportable Baso % (Auto) Not Reportable Lymph # (Auto) Not Reportable [place] # (Auto) Not Reportable Baso # (Auto) Not Reportable Total Counted Seg Neutrophils % Band Neutrophils % Lymphocytes % (Manual) Monocytes % (Manual) Metamyelocytes % Neutrophils # (Manual) Nucleated RBCs Platelet Estimate RBC Morphology Hypochromasia Anisocytosis Microcytosis Target Cells Gianni Cells Smear Path Review Percent Retic PT INR Sodium Potassium Chloride Carbon Dioxide BUN Creatinine Estimated GFR BUN/Creatinine Ratio Glucose Lactate Calcium Iron TIBC % Saturation Transferrin Total Bilirubin AST ALT Alkaline Phosphatase Ammonia Lactate Dehydrogenase Total Creatine Kinase CK-MB (CK-2) CK-MB (CK-2) Rel Index Troponin I NT-Pro-B Natriuret Pep Total Protein Albumin Globulin Albumin/Globulin Ratio Procalcitonin Urine Color Urine Appearance Urine pH Ur Specific [place] Urine Protein Urine Glucose (UA) Urine Ketones Urine Occult Blood Urine Nitrate Urine Bilirubin Urine Urobilinogen Ur Leukocyte Esterase Urine RBC Urine WBC Ur Squamous Epith Cells Amorphous Sediment Urine Bacteria Ur Culture Indicated? Nasal Screen MRSA (PCR) Salicylates U Opiates 300ng/mL cut Ur Oxycodone Screen Urine Methadone Screen Acetaminophen Ur Barbiturates Screen U Tricyclic Antidepress Ur Phencyclidine Scrn Ur Amphetamines Screen U Methamphetamines Scrn Ur MDMA Scrn (Ecstasy) U Benzodiazepines Scrn Urine Cocaine Screen U Marijuana (THC) Screen Ethyl Alcohol SARS-CoV-2 (PCR) Influenza A (RT-PCR) Influenza B (RT-PCR) RSV (PCR) Blood Type Antibody Screen Crossmatch Assessment & Plan Assessment and plan (1) Pneumatosis intestinalis of large intestine: Status: Acute Plan The patient is a 76-year-old man who has pneumatosis of the colon and an elevated lactate without an obvious etiology. He appears acutely ill and is not coherent enough to make his own medical decisions. Although his vital signs are mostly within normal limits his altered mental status and deranged laboratory values suggest that he is acutely ill and at imminent risk of . Recommend exploratory laparotomy and likely colectomy and colostomy and possible subtotal colectomy with end ileostomy. He will likely need to be transferred to a facility with hemodialysis capability based on his hyperkalemia and impaired renal function. I have discussed the case with Dr. Otf Lewis of anesthesia and Dr. Mis Adams of emergency medicine and we are all in agreement that the patient needs to be taken to the operating room despite his inability to make decisions for himself. We will proceed with 2 physician consent. Time Spent With Patient Critical Care time: I spent a total of [] minutes of critical care time on this patient's care today; this time is exclusive of procedural time.
[2022-07-23 09:12] LABS: Neutrophils Absolute Manual 29281 /uL (3000-5900); Nucleated Red Blood Cells 3 #/Diff; Total Cells Counted 100
[2022-07-23 09:13] LABS: Anisocytosis 2+; Estimated Glomerular Filt Rate 13 mL/min (>60); Hypochromasia 2+; Poikilocytosis 1+
[2022-07-23 09:14] LABS: BUN Creatinine Ratio 36.8 (6-22); Microcytosis 1+
[2022-07-23 09:15] LABS: Blood Urea Nitrogen 164 mg/dL (9-20)
[2022-07-23 09:17] LABS: Lactate (Lactic Acid) 3.8 mmol/L (0.7-2.1)
[2022-07-23] MEDS: MEROPENEM 500 MG in SODIUM CHLORIDE 0.9% 100 ML 200 MG IV (09:43)
--- NOTE | 2022-07-23 10:18 | DI.RAD.S_ITS ---
PROCEDURE: XR CHEST FOR PICC 1V INDICATIONS: PICC LINE PLACEMENT COMPARISON: [facility], CR, XR CHEST 1V, 07/23/2022, 7:12. FINDINGS: PICC was placed by the intravenous therapy team from the right side. Fluoroscopic spot film demonstrates the tip of PICC projecting to the area of right atrium. IMPRESSION: Tip of PICC projects to the area of right atrium. Recommend 4 cm pullback. Approved by: Ronald Langley M.D. on 07/23/2022 at 9:52
[2022-07-23 10:59] LABS: Reflexed Lactate in 2 Hours Y
[2022-07-23 11:57] LABS: Chloride 115 mmol/L (98-107); Glucose 90 mg/dL (80-110); Lactate 2HR (Lactic Acid Rflx) 2.7 mmol/L (0.7-2.1); Sodium 141 mmol/L (137-145)
[2022-07-23 12:04] LABS: Estimated Glomerular Filt Rate 18 mL/min (>60)
[2022-07-23 12:21] LABS: HEMOLYSIS 85 (0-50)
[2022-07-23 12:22] LABS: BUN Creatinine Ratio 44.3 (6-22)
[2022-07-23 12:26] LABS: Carbon Dioxide 8 mmol/L (22-32)
[2022-07-23 12:27] LABS: Blood Urea Nitrogen 151 mg/dL (9-20); Calcium 5.3 mg/dL (8.4-10.2)
--- NOTE | 2022-07-23 12:43 | SUR.OPER ---
pt presents to OR with toes peeling and bleeding bilateralfeet, Presure sore left upper glute/ sacral region, peeling skin lower abdomen and bilateral groin
--- NOTE | 2022-07-23 12:45 | SUR.OPER ---
Supine on padded OR bed, head on pillow, arms secured on padded arm boards at <90 degrees abduction, legs uncrossed, safety belt at thigh, tape over blanket over lower legs,, lower legs with pillow under knees and heels padded and gel pad
--- NOTE | 2022-07-23 12:55 | SUR.OPER ---
pt. non responsive to verbal stimuli, emergent case, consents implied
[2022-07-23] MEDS: CALCIUM GLUCONATE 9.3 MEQ in SODIUM CHLORIDE 0.9% 50 ML 140 MEQ IV (13:00)
--- NOTE | 2022-07-23 14:16 | PM.OP.1 ---
Operative Date/Time/Diagnoses Date of procedure: 07/23/22 Post-op diagnosis: same Procedure & Clinicians Procedure: Exploratory laparotomy Partial colectomy involving the descending and sigmoid colon Peritoneal lavage Temporary abdominal closure Same procedure as scheduled: Yes Surgeon: Omid Gutierrez Cargo Checker: Meghan Potts Anesthesia Type: General Operative Notes Procedure in detail: The patient is a 76-year-old man who presented to the emergency department last night with altered mental status and shortness of breath. He was not able to provide much medical information due to his mental status. Eventually workup found that he had a very distended colon with pneumatosis involving left colon. He would an elevated lactate, elevated white blood cell count and multiple other laboratory abnormalities. The decision was made to proceed to the operating room using 2 physician consent because of his altered mental status. A Nguyen catheter had been placed in the emergency department. Piperacillin tazobactam had been initiated by the emergency department. The patient was brought into the operating room and general endotracheal anesthesia was induced. The abdomen was prepped and draped in the normal fashion and a time-out was performed. We made a midline incision from above the pubis to shelter between the umbilicus and xiphoid. We entered the abdomen sharply under direct vision. There was some murky ascites that was suctioned but no angelita succus or stool. The colon was extremely distended and there were some patchy areas of necrosis involving the sigmoid colon and descending colon. We set up the Bookwalter retractor. We mobilized the sigmoid and descending colon along the white line of Toldt. In order to assist with the mobilization we divided the distal sigmoid colon with a 75 mm linear stapler with a blue load. We took down the mesentery with the LigaSure. We mobilized the colon up to the splenic flexure. We divided the descending colon just distal to the splenic flexure. The specimen was passed off. We then used cautery to make a hole in the colon just proximal to the staple line in order to decompress the proximal colon in a controlled manner using the pool sucker. We removed approximately 1 L of liquid stool as well as a significant volume of air. This allowed the proximal colon to decompress significantly. We then removed an additional 1-2 cm of colon was the linear cutting stapler. There was negligible spillage of stool. The colon was left in discontinuity. We then irrigated the abdomen with approximately 3 L of warm saline. The rectal stump remained quite distended. No palpable mass was felt in the distal pelvis or by digital rectal exam. The bladder was notably boggy and thickened but there was no firm mass palpable in the Nguyen balloon was palpable in the bladder. When we took the Bookwalter retractor apart it was noted that there was a loop of terminal ileum that had been compressed by one of the retractors however there was no obvious damage to the bowel. This was about 40 cm proximal to the ileocecal valve. We then placed a temporary abdominal closure using a plastic fenestrated drape over the bowel, 1 blue towel followed by a negative pressure drain. Plan is for the patient to be transferred to the acute care surgical service at [facility] for definitive surgery and for intensive care given the patient's high likelihood of acute renal failure. EBL: 20 mL Specimen: Descending colon and sigmoid colon Dr. Potts provided critical assistance with exposure, intraoperative decision-making and closure. Post-operative Plan for aftercare: The patient will be transferred immediately to [facility] for [facility] for definitive surgery and intensive care
[2022-07-23 14:49] LABS: Carbon Dioxide 12 mmol/L (22-32); Chloride 112 mmol/L (98-107); Glucose 103 mg/dL (80-110); HEMOLYSIS < 15 (0-50); Potassium 5.6 mmol/L (3.4-5.1); Sodium 145 mmol/L (137-145)
--- NOTE | 2022-07-23 14:49 | SUR.OPER ---
pt. Transferred intubated from OR To [facility],
[2022-07-23 14:55] LABS: Estimated Glomerular Filt Rate 14 mL/min (>60)
[2022-07-23 14:57] LABS: BUN Creatinine Ratio 36.3 (6-22)
[2022-07-23 15:01] LABS: Blood Urea Nitrogen 153 mg/dL (9-20); Calcium 6.2 mg/dL (8.4-10.2)
[2022-07-25 04:49] LABS: Haptoglobin 309 mg/dL (34-355)
== END 2022-07-23 14:48 | disposition short-term general hospital (02) | DRG 853 ==
LOC: ED 07-23 07:16 → AC 07-23 09:14
PROVIDERS: Emergency Medicine; Internal Medicine; Student in an Organized Health Care Education/Training Program; Admitting Provider Surgery; Emergency Provider Emergency Medicine; Referring Provider Emergency Medicine; Visit Provider Surgery
PROC: 0DBM0ZZ Excision of Descending Colon, Open Approach (ICD-10-PCS; CPT 49000; principal; 2022-07-23 09:30)
DX: A41.9 Sepsis, unspecified organism (principal); G93.41 Metabolic encephalopathy; N17.0 Acute kidney failure with tubular necrosis; I96 Gangrene, not elsewhere classified; K63.89 Other specified diseases of intestine; R65.20 Severe sepsis without septic shock; E87.5 Hyperkalemia; D64.9 Anemia, unspecified; D69.6 Thrombocytopenia, unspecified; S90.935A Unspecified superficial injury of left lesser toe(s), initial encounter; X58.XXXA Exposure to other specified factors, initial encounter; Z20.822 Contact with and (suspected) exposure to COVID-19
CPT/HCPCS: 0241U; 36415; 36430; 44140; 71045; 71250; 73620; 74176; 80048; 80053; 80305; 80320; 80329; 81001; 82140; 82272; 82550; 82553; 82962; 83010; 83540; 83550; 83605; 83615; 83655; 83880; 84145; 84484; 85007; 85014; 85018; 85025; 85027; 85045; 85610; 86850; 86900; 86901; 87040; 87086; 87797; 93005; 96365; 96366; 96367; 96368; 96372; 96375; 96376; 99222; 99285; 99291; 99292; P9016; G0480; J0610; J1100; J1170; J2185; J2250; J2270; J2405; J2543; J2704; J3010